=== PATIENT | male | born 1995 | race Caucasian/White ===

== ENCOUNTER 2017-06-20 18:25 | Emergency (ER) | payer MEDICARE, MEDICAID ==
[~2017-06-20] VITALS: Ht 5703.2 cm; Wt 84.0 kg
[~2017-06-20 18:25] MED LIST: PALI234D IM
[2017-06-20 19:09] VITALS: BP 143/96
[2017-06-20] MEDS ORDERED: TRAZ-143 PO (20:08)
[2017-06-20] MEDS ORDERED: ZIPR40CA2 PO (20:08)
[2017-06-20] MEDS ORDERED: BUSP5TAB3 PO (20:08)
[2017-06-20] MEDS ORDERED: traZODone 50mg tablet PO STA (20:11)
[2017-06-20] MEDS ORDERED: busPIRone 5mg tablet PO STA (20:11)
[2017-06-20] MEDS ORDERED: ziprasidone 20mg capsule PO STA (20:11)
== END 2017-06-20 20:37 | disposition home or self-care (01) ==
LOC: ER 18:26
DX: F20.9 Schizophrenia, unspecified (principal); F31.9 Bipolar disorder, unspecified; F41.9 Anxiety disorder, unspecified; F12.10 Cannabis abuse, uncomplicated; F15.10 Other stimulant abuse, uncomplicated; F14.10 Cocaine abuse, uncomplicated; Z88.0 Allergy status to penicillin
CPT/HCPCS: 99284

== ENCOUNTER 2017-06-28 04:17 | Emergency (ER) | payer MEDICARE, MEDICAID ==
[~2017-06-28] VITALS: Ht 172.7 cm; Wt 84.0 kg
[~2017-06-28 04:17] MED LIST changes: +BUSP5TAB3 PO; -PALI234D IM; +TRAZ-143 PO; +ZIPR40CA2 PO
[2017-06-28 04:59] VITALS: BP 118/64
== END 2017-06-28 05:02 | disposition home or self-care (01) ==
LOC: ER 04:18
DX: F20.9 Schizophrenia, unspecified (principal); F41.9 Anxiety disorder, unspecified; Z88.8 Allergy status to other drugs, medicaments and biological substances
CPT/HCPCS: 99284

== ENCOUNTER 2017-06-30 10:05 | Emergency (ER) | payer MEDICARE, MEDICAID ==
[~2017-06-30] VITALS: Ht 185550.7 cm; Wt 83.1 kg
[2017-06-30 10:51] LABS: BASOPHILS % (AUTO) 0 % (0-1); EOSINOPHILS # (AUTO) 0.1 X10'3 (0-0.9); EOSINOPHILS % (AUTO) 0.9 % (0-6); HEMATOCRIT 49.4 % (42.0-52.0); HEMOGLOBIN 16.5 g/dl (14.0-17.9); LYMPHOCYTES # (AUTO) 1.5 X10'3 (1.1-4.8); LYMPHOCYTES % (AUTO) 15.9 % (21-51); MEAN CORPUSCULAR HGB CONC 33.3 % (33.0-36.5); MEAN CORPUSCULAR VOLUME 92.9 FL (78-98); MEAN PLATELET VOLUME 7.3 FL (7.4-10.4); MONOCYTES # (AUTO) 0.3 X10'3 (0-0.9); NEUTROPHILS # (AUTO) 7.6 X10'3 (1.8-7.7); NEUTROPHILS % (AUTO) 80.2 % (42-75); PLATELET COUNT 334 X10'3 (140-440); RED BLOOD COUNT 5.32 X10'6 (4.70-6.10); RED CELL DISTRIBUTION WIDTH 13.7 % (11.5-14.5); WHITE BLOOD COUNT 9.5 X10'3 (4.5-11.0)
[2017-06-30 11:08] LABS: ALANINE AMINOTRANSFERASE 28 U/L (12-78); ALBUMIN 4.2 G/DL (3.4-5.0); ALBUMIN/GLOBULIN RATIO 1.3 (1.1-1.5); ALKALINE PHOSPHATASE 64 IU/L (46-116); ANION GAP 9 (8-16); ASPARTATE AMINO TRANSFERASE 16 U/L (10-37); BILIRUBIN,TOTAL 0.6 MG/DL (0.1-1.0); BLOOD UREA NITROGEN 8 MG/DL (7-18); CALCIUM 9.3 MG/DL (8.5-10.1); CHLORIDE 106 MMOL/L (99-107); ETHANOL < 0.010 GM/DL (0.0-0.010); GLUCOSE 99 MG/DL (70-104); POTASSIUM 3.8 MMOL/L (3.5-5.1); SODIUM 142 MMOL/L (135-145); TOTAL CARBON DIOXIDE 27.2 MMOL/L (24-32); TOTAL PROTEIN 7.4 G/DL (6.4-8.2); eGFR > 90 ML/MIN
[2017-06-30 11:09] LABS: URINE AMPHETAMINE SCREEN NEGATIVE (Neg); URINE BARBITUATE SCREEN NEGATIVE (Neg); URINE BENZODIAZEPINES SCREEN NEGATIVE (Neg); URINE CANNABINOID SCREEN NEGATIVE (Neg); URINE COCAINE SCREEN NEGATIVE (Neg); URINE METHADONE SCREEN NEGATIVE (Neg); URINE OPIATE SCREEN NEGATIVE (Neg); URINE PHENCYCLIDINE SCREEN NEGATIVE (Neg)
[2017-06-30] MEDS ORDERED: TEMA15CA5 PO (18:21)
[2017-06-30] MEDS ORDERED: ACET-890 PO (18:21)
[2017-06-30] MEDS ORDERED: OLAN5TAB3 PO (18:21)
[2017-06-30] MEDS ORDERED: OLANZapine 2.5MG tablet PO PRN (19:50)
[2017-06-30] MEDS: hydrOXYzine 25 MG tablet PO PRN (20:16)
[2017-06-30] MEDS: OLANZapine 2.5MG tablet PO SCH ×2 (20:16→21:00)
[2017-07-01] MEDS: hydrOXYzine 25 MG tablet PO PRN (20:12)
[2017-07-01] MEDS: OLANZapine 2.5MG tablet PO SCH (20:13)
[2017-07-02 16:13] VITALS: BP 117/55
== END 2017-07-02 16:43 ==
LOC: ER 10:05
DX: R45.851 Suicidal ideations (principal); F20.9 Schizophrenia, unspecified; J44.9 Chronic obstructive pulmonary disease, unspecified; F12.10 Cannabis abuse, uncomplicated; F15.90 Other stimulant use, unspecified, uncomplicated; Z88.8 Allergy status to other drugs, medicaments and biological substances; Z56.0 Unemployment, unspecified; Z59.0 Homelessness
CPT/HCPCS: 36415; 80053; 80305; 80320; 85025; 99285; Q0177

== ENCOUNTER 2017-07-25 06:54 | Emergency (ER) | payer MEDICARE, MEDICAID ==
[~2017-07-25] VITALS: Ht 170.2 cm; Wt 90.9 kg
[~2017-07-25 06:54] MED LIST changes: +ACET-890 PO; -BUSP5TAB3 PO; +OLAN5TAB3 PO; +TEMA15CA5 PO; -TRAZ-143 PO; -ZIPR40CA2 PO
[2017-07-25 06:58] VITALS: BP 217/156
[2017-07-25 08:07] LABS: BASOPHILS % (AUTO) 0.1 % (0-1); EOSINOPHILS # (AUTO) 0.1 X10'3 (0-0.9); EOSINOPHILS % (AUTO) 0.6 % (0-6); HEMATOCRIT 45.4 % (42.0-52.0); HEMOGLOBIN 15.9 g/dl (14.0-17.9); LYMPHOCYTES # (AUTO) 1.2 X10'3 (1.1-4.8); LYMPHOCYTES % (AUTO) 10.8 % (21-51); MEAN CORPUSCULAR HEMOGLOBIN 31.7 PG (27.0-31.0); MEAN CORPUSCULAR VOLUME 90.7 FL (78-98); MEAN PLATELET VOLUME 7.3 FL (7.4-10.4); MONOCYTES # (AUTO) 0.3 X10'3 (0-0.9); MONOCYTES % (AUTO) 2.7 % (2-12); NEUTROPHILS # (AUTO) 9.2 X10'3 (1.8-7.7); NEUTROPHILS % (AUTO) 85.8 % (42-75); PLATELET COUNT 275 X10'3 (140-440); RED BLOOD COUNT 5.01 X10'6 (4.70-6.10); RED CELL DISTRIBUTION WIDTH 13.6 % (11.5-14.5); WHITE BLOOD COUNT 10.8 X10'3 (4.5-11.0)
[2017-07-25 08:23] LABS: ALANINE AMINOTRANSFERASE 17 U/L (12-78); ALBUMIN 4.1 G/DL (3.4-5.0); ALBUMIN/GLOBULIN RATIO 1.2 (1.1-1.5); ALKALINE PHOSPHATASE 54 IU/L (46-116); ANION GAP 15 (8-16); ASPARTATE AMINO TRANSFERASE 15 U/L (10-37); BILIRUBIN,TOTAL 0.2 MG/DL (0.1-1.0); BLOOD UREA NITROGEN 10 MG/DL (7-18); BUN/CREATININE RATIO 12.5 (5.4-32.0); CALCIUM 9.3 MG/DL (8.5-10.1); CHLORIDE 104 MMOL/L (99-107); GLUCOSE 97 MG/DL (70-104); POTASSIUM 3.6 MMOL/L (3.5-5.1); SODIUM 144 MMOL/L (135-145); TOTAL CARBON DIOXIDE 24.6 MMOL/L (24-32); TOTAL PROTEIN 7.5 G/DL (6.4-8.2); eGFR > 90 ML/MIN
== END 2017-07-25 08:35 | disposition left against medical advice (07) ==
LOC: ER 06:54
DX: F41.0 Panic disorder [episodic paroxysmal anxiety] (principal); F20.9 Schizophrenia, unspecified; J44.9 Chronic obstructive pulmonary disease, unspecified; F12.90 Cannabis use, unspecified, uncomplicated; F15.90 Other stimulant use, unspecified, uncomplicated; F14.10 Cocaine abuse, uncomplicated; Z59.0 Homelessness; Z56.0 Unemployment, unspecified; Z88.8 Allergy status to other drugs, medicaments and biological substances; Z79.899 Other long term (current) drug therapy
CPT/HCPCS: 36415; 80053; 80320; 85025; 99284

== ENCOUNTER 2018-09-27 13:30 | Emergency (ER) | payer MEDICAID, MEDICARE ==
[~2018-09-27] VITALS: Ht 175.3 cm; Wt 90.9 kg
[2018-09-27 13:37] VITALS: BP 152/91
[2018-09-27] MEDS ORDERED: methylPREDNISolone sod succ 125mg/2ml vial IM ONE (14:10)
[2018-09-27] MEDS ORDERED: METH4TAB3 PO (14:27)
== END 2018-09-27 14:49 | disposition home or self-care (01) ==
LOC: ER 13:31
DX: L23.7 Allergic contact dermatitis due to plants, except food (principal); F12.90 Cannabis use, unspecified, uncomplicated; F15.90 Other stimulant use, unspecified, uncomplicated; F14.90 Cocaine use, unspecified, uncomplicated; Z88.8 Allergy status to other drugs, medicaments and biological substances; Z79.899 Other long term (current) drug therapy; Z59.0 Homelessness; Z56.0 Unemployment, unspecified
CPT/HCPCS: 96372; 99283; J2930

== ENCOUNTER 2018-10-10 11:51 | Emergency (ER) | payer MEDICARE ==
[~2018-10-10] VITALS: Ht 172.7 cm; Wt 92.0 kg
[~2018-10-10 11:51] MED LIST changes: +METH4TAB3 PO
[2018-10-10] MEDS ORDERED: HYDR-3686 PO (12:46)
[2018-10-10 12:56] VITALS: BP 142/75
== END 2018-10-10 12:59 | disposition home or self-care (01) ==
LOC: ER 11:52
DX: G47.00 Insomnia, unspecified (principal); F12.90 Cannabis use, unspecified, uncomplicated; F15.90 Other stimulant use, unspecified, uncomplicated; F14.90 Cocaine use, unspecified, uncomplicated; Z90.49 Acquired absence of other specified parts of digestive tract; Z56.0 Unemployment, unspecified; Z59.0 Homelessness; Z88.8 Allergy status to other drugs, medicaments and biological substances; Z79.899 Other long term (current) drug therapy
CPT/HCPCS: 99283

== ENCOUNTER 2018-10-24 11:53 | Emergency (ER) | payer MEDICARE ==
[~2018-10-24] VITALS: Ht 172.7 cm; Wt 90.9 kg
[2018-10-24] MEDS ORDERED: ziprasidone 20mg capsule PO ONE (12:15)
[2018-10-24] MEDS: hydrOXYzine 25 MG tablet PO ONE ×2 (12:15→13:05)
[2018-10-24] MEDS: ziprasidone 20mg capsule PO ONE ×2 (12:20→13:05)
[2018-10-24 12:30] LABS: CLARITY,URINE CLEAR (Clear); COLOR,URINE YELLOW (Yellow); GLUCOSE, URINE NEGATIVE (Neg); KETONES,URINE NEGATIVE (Neg); LEUKOCYTE ESTERASE ,URINE NEGATIVE (Neg); NITRITES, URINE NEGATIVE (Neg); OCCULT BLOOD,URINE NEGATIVE (Neg); PROTEIN,URINE NEGATIVE (Neg); UA COLLECTION TYPE CLN CATCH MIDSTREAM; UROBILINOGEN,URINE 0.2 E.U/dL (0.2-1.0)
[2018-10-24 12:39] LABS: URINE AMPHETAMINE SCREEN NEGATIVE (Neg); URINE BARBITUATE SCREEN NEGATIVE (Neg); URINE BENZODIAZEPINES SCREEN NEGATIVE (Neg); URINE CANNABINOID SCREEN NEGATIVE (Neg); URINE COCAINE SCREEN NEGATIVE (Neg); URINE METHADONE SCREEN NEGATIVE (Neg); URINE OPIATE SCREEN NEGATIVE (Neg); URINE PHENCYCLIDINE SCREEN NEGATIVE (Neg)
--- NOTE | 2018-10-24 14:15 | NUR ---
pt is resting on his left side, no s/s of agitation observed, equal, regular breathing, lab is attempting blood draw
--- NOTE | 2018-10-24 14:17 | NUR ---
pt refused blood draw
--- NOTE | 2018-10-24 15:30 | NUR ---
Patient awake alert and states he is having difficulty falling asleep and states he hasn't slept in 3 days. States the voices in his head are racing. Patient feels depressed and suicidal. RN had offered patient Geodon and Atarax but patient refused. RN again offered patient meds when he was anxious and patient refused. Patient states he has not had medication x 3 months since he was discharged from [facility]. Continue to monitor.
[2018-10-24 16:01] LABS: BASOPHILS % (AUTO) 0.5 % (0-1); EOSINOPHILS % (AUTO) 0 % (0-6); HEMATOCRIT 49.2 % (42.0-52.0); HEMOGLOBIN 16.6 g/dl (14.0-17.9); LYMPHOCYTES # (AUTO) 1.1 X10'3 (1.1-4.8); LYMPHOCYTES % (AUTO) 12.7 % (21-51); MEAN CORPUSCULAR HEMOGLOBIN 31.5 PG (27.0-31.0); MEAN CORPUSCULAR HGB CONC 33.7 g/dL (33.0-36.5); MEAN CORPUSCULAR VOLUME 93.6 FL (78-98); MEAN PLATELET VOLUME 7.3 FL (7.4-10.4); MONOCYTES # (AUTO) 0.7 X10'3 (0-0.9); MONOCYTES % (AUTO) 8.2 % (2-12); NEUTROPHILS # (AUTO) 6.9 X10'3 (1.8-7.7); NEUTROPHILS % (AUTO) 78.6 % (42-75); PLATELET COUNT 270 X10'3 (140-440); RED BLOOD COUNT 5.25 X10'6 (4.70-6.10); RED CELL DISTRIBUTION WIDTH 14.2 % (11.5-14.5); WHITE BLOOD COUNT 8.8 X10'3 (4.5-11.0)
[2018-10-24 16:19] LABS: ALANINE AMINOTRANSFERASE 26 U/L (12-78); ALBUMIN 3.7 G/DL (3.4-5.0); ALBUMIN/GLOBULIN RATIO 1.1 (1.1-1.5); ALKALINE PHOSPHATASE 77 IU/L (46-116); ANION GAP 11 (8-16); BILIRUBIN,TOTAL 0.4 MG/DL (0.1-1.0); BLOOD UREA NITROGEN 10 MG/DL (7-18); BUN/CREATININE RATIO 10.6 (5.4-32.0); CHLORIDE 101 MMOL/L (99-107); CREATININE 0.94 MG/DL (0.60-1.10); GLUCOSE 98 MG/DL (70-104); SODIUM 137 MMOL/L (135-145); TOTAL CARBON DIOXIDE 25.5 MMOL/L (24-32); TOTAL PROTEIN 7.1 G/DL (6.4-8.2); eGFR > 90 ML/MIN
[2018-10-24 16:25] LABS: ASPARTATE AMINO TRANSFERASE 24 U/L (10-37)
[2018-10-24 16:31] LABS: ACETAMINOPHEN < 2.0 UG/ML (10-30); ETHANOL < 0.010 GM/DL (0.0-0.010)
--- NOTE | 2018-10-24 17:20 | NUR ---
Patient reclining with his eyes closed. No distress observed. Continue to monitor.
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
--- NOTE | 2018-10-24 20:41 | NUR ---
The patient is resting quietly on his bed
--- NOTE | 2018-10-24 21:15 | NUR ---
Casper GRACE is here to see the patient.
[2018-10-24] MEDS ORDERED: quetiapine 100mg tablet PO SCH (21:50)
--- NOTE | 2018-10-24 23:11 | NUR ---
The patient appears to be asleep at this time.
--- NOTE | 2018-10-25 01:08 | NUR ---
The patient appears to be asleep
--- NOTE | 2018-10-25 02:55 | NUR ---
The patient appears to be asleep
--- NOTE | 2018-10-25 04:47 | NUR ---
The patient appears to be sleeping
[2018-10-25 05:56] VITALS: BP 121/67
[2018-10-25] MEDS ORDERED: QUEtiapine 25mg tablet PO SCH (08:00)
== END 2018-10-25 09:15 ==
LOC: ER 11:54
DX: R45.851 Suicidal ideations (principal); J44.9 Chronic obstructive pulmonary disease, unspecified; F17.200 Nicotine dependence, unspecified, uncomplicated; Z59.0 Homelessness; Z88.8 Allergy status to other drugs, medicaments and biological substances; Z79.899 Other long term (current) drug therapy; Z56.0 Unemployment, unspecified
CPT/HCPCS: 36415; 80053; 80305; 80320; 80329; 81003; 84443; 85025; 99285; Q0177; 99283

== ENCOUNTER 2018-10-29 17:10 | Emergency (ER) | payer MEDICARE ==
[~2018-10-29] VITALS: Ht 172.7 cm; Wt 90.9 kg
[~2018-10-29 17:10] MED LIST changes: -ACET-890 PO; -METH4TAB3 PO; -TEMA15CA5 PO
[2018-10-29] MEDS ORDERED: folic acid 1mg/0.2ml inj IV ONE (17:25)
[2018-10-29] MEDS ORDERED: ondansetron/PF 4mg/2ml inj IV ONE (17:25)
[2018-10-29] MEDS ORDERED: thiamine 100mg/ml 2ml inj. IV ONE (17:25)
[2018-10-29] MEDS ORDERED: normal saline 1000ML IV soln IV ONE (17:25)
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
[2018-10-29 18:09] LABS: BASOPHILS # (AUTO) 0.1 X10'3 (0-0.2); BASOPHILS % (AUTO) 0.7 % (0-1); EOSINOPHILS % (AUTO) 0.6 % (0-6); HEMATOCRIT 48.6 % (42.0-52.0); HEMOGLOBIN 16.9 g/dl (14.0-17.9); LYMPHOCYTES # (AUTO) 2.7 X10'3 (1.1-4.8); LYMPHOCYTES % (AUTO) 36.8 % (21-51); MEAN CORPUSCULAR HEMOGLOBIN 32.6 PG (27.0-31.0); MEAN CORPUSCULAR HGB CONC 34.7 g/dL (33.0-36.5); MEAN CORPUSCULAR VOLUME 94.2 FL (78-98); MEAN PLATELET VOLUME 6.9 FL (7.4-10.4); MONOCYTES # (AUTO) 0.7 X10'3 (0-0.9); MONOCYTES % (AUTO) 9.1 % (2-12); NEUTROPHILS # (AUTO) 3.8 X10'3 (1.8-7.7); NEUTROPHILS % (AUTO) 52.8 % (42-75); PLATELET COUNT 228 X10'3 (140-440); RED BLOOD COUNT 5.16 X10'6 (4.70-6.10); WHITE BLOOD COUNT 7.2 X10'3 (4.5-11.0)
[2018-10-29 18:22] LABS: ALANINE AMINOTRANSFERASE 41 U/L (12-78); ALBUMIN 3.3 G/DL (3.4-5.0); ALBUMIN/GLOBULIN RATIO 1.1 (1.1-1.5); ALKALINE PHOSPHATASE 64 IU/L (46-116); ANION GAP 8 (8-16); ASPARTATE AMINO TRANSFERASE 23 U/L (10-37); BILIRUBIN,TOTAL 0.1 MG/DL (0.1-1.0); BLOOD UREA NITROGEN 8 MG/DL (7-18); BUN/CREATININE RATIO 10.5 (5.4-32.0); CHLORIDE 109 MMOL/L (99-107); CREATININE 0.76 MG/DL (0.60-1.10); GLUCOSE 97 MG/DL (70-104); POTASSIUM 3.8 MMOL/L (3.5-5.1); SODIUM 144 MMOL/L (135-145); TOTAL CARBON DIOXIDE 27.1 MMOL/L (24-32); TOTAL PROTEIN 6.4 G/DL (6.4-8.2); eGFR > 90 ML/MIN
[2018-10-29 18:35] VITALS: BP 81/53
== END 2018-10-29 18:40 ==
LOC: ER 17:11
DX: F10.129 Alcohol abuse with intoxication, unspecified (principal); Z90.49 Acquired absence of other specified parts of digestive tract; Z56.0 Unemployment, unspecified; Z59.0 Homelessness; Z88.8 Allergy status to other drugs, medicaments and biological substances; Z79.899 Other long term (current) drug therapy; Y90.0 Blood alcohol level of less than 20 mg/100 ml
CPT/HCPCS: 36415; 80053; 80320; 85025; 96374; 96375; 99283; J2405; J3411; J3490; J7030

== ENCOUNTER 2019-01-04 16:30 | Emergency (ER) | payer MEDICARE ==
--- NOTE | 2019-01-04 16:33 | NUR ---
PT BROUGHT INTO TRIAGE ASKED WHAT HE IS BEING SEEN FOR AND HE STANDS UP OPENS THE DOOR AND STATES "I GOT TO GO ACTUALY" ASKED WHAT HE WANTED TO BE SEEN FOR AND HE STATES "I JUST WANTED A PHYSICAL" AND WALKED OUT OF TRIAGE AND OUT OF THE ER LOBBY. ELIZA JONAS NOTIFIED
== END 2019-01-04 16:43 | disposition left against medical advice (07) ==
LOC: ER 16:30
DX: R69 Illness, unspecified (principal); Z53.21 Procedure and treatment not carried out due to patient leaving prior to being seen by health care provider

== ENCOUNTER 2019-08-02 01:57 | Emergency (ER) | payer MEDICARE, OTHER ==
[~2019-08-02] VITALS: Ht 172.7 cm; Wt 76.0 kg
[2019-08-02 02:01] VITALS: BP 148/88
[2019-08-02 02:32] LABS: URINE AMPHETAMINE SCREEN NEGATIVE (Neg); URINE BARBITUATE SCREEN NEGATIVE (Neg); URINE BENZODIAZEPINES SCREEN NEGATIVE (Neg); URINE CANNABINOID SCREEN NEGATIVE (Neg); URINE COCAINE SCREEN NEGATIVE (Neg); URINE METHADONE SCREEN NEGATIVE (Neg); URINE OPIATE SCREEN NEGATIVE (Neg); URINE PHENCYCLIDINE SCREEN NEGATIVE (Neg)
== END 2019-08-02 02:51 ==
LOC: ER 01:58
DX: S09.90XA Unspecified injury of head, initial encounter (principal); R94.31 Abnormal electrocardiogram [ECG] [EKG]; F41.9 Anxiety disorder, unspecified; F31.9 Bipolar disorder, unspecified; Z56.0 Unemployment, unspecified; Z90.49 Acquired absence of other specified parts of digestive tract; Z88.8 Allergy status to other drugs, medicaments and biological substances; X58.XXXA Exposure to other specified factors, initial encounter; Y93.89 Activity, other specified; Y92.89 Other specified places as the place of occurrence of the external cause; Y99.9 Unspecified external cause status
CPT/HCPCS: 80305; 93005; 99284

== ENCOUNTER 2020-12-28 14:36 | Inpatient (IN) | payer MEDICAID, OTHER ==
[~2020-12-28] VITALS: Ht 175.3 cm; Wt 90.1 kg
[2020-12-28] MEDS ORDERED: mag hydrox/Alum hydrox/simeth 30ml oral suspension PO PRN (15:35)
[2020-12-28] MEDS ORDERED: acetaminophen 325mg tablet PO PRN ×2 (15:35)
[2020-12-28] MEDS ORDERED: loperamide 2mg capsule PO PRN (15:35)
[2020-12-28] MEDS ORDERED: magnesium hydroxide 30ml (MOM) UD suspension PO PRN (15:35)
[2020-12-28 15:52] VITALS: BP 148/92
--- NOTE | 2020-12-28 18:01 | NUR ---
Nursing Admission Note Pt admitted to [facility] at 1500. Pt was released from [facility] to attend his conservatorship hearing. Decision was made to LPS conserve him and he was then brought to [facility]. Pt was showered and skin check completed along with MRSA swab. Pt overall cooperative, but also restless and wanted to sleep. Pt belongings inventoried and pt oriented to unit. Pt tolerated a moderate level of questions before falling asleep. Pt appears to have been taking Clozaril, Haldol and Depakote in [facility]. Pt tolerated assessments well and reports being very hungry. Pt appears anxious and guarded yet cooperative.
[2020-12-28] MEDS ORDERED: CLOZ100T23 PO ×2 (18:11→19:24)
[2020-12-28] MEDS ORDERED: DIVA-76 PO ×2 (18:11→19:24)
[2020-12-28] MEDS ORDERED: HALO10TA13 PO ×2 (18:13→19:24)
[2020-12-28 19:16] VITALS: BP 127/78
[2020-12-28] MEDS: divalproex sodium 500mg tablet.DR PO SCH (20:53)
[2020-12-28] MEDS: haloperidol 5mg tablet PO SCH (20:53)
[2020-12-28 20:55] LABS: BASOPHILS % (AUTO) 0.7 % (0-1); EOSINOPHILS # (AUTO) 0.4 X10'3 (0-0.9); EOSINOPHILS % (AUTO) 8.4 % (0-6); HEMATOCRIT 41.2 % (42.0-52.0); LYMPHOCYTES # (AUTO) 1.7 X10'3 (1.1-4.8); LYMPHOCYTES % (AUTO) 32.3 % (21-51); MEAN CORPUSCULAR HEMOGLOBIN 31.6 PG (27.0-31.0); MEAN CORPUSCULAR HGB CONC 33.9 g/dL (33.0-36.5); MEAN CORPUSCULAR VOLUME 93.1 FL (78-98); MEAN PLATELET VOLUME 8.3 FL (7.4-10.4); MONOCYTES # (AUTO) 0.7 X10'3 (0-0.9); NEUTROPHILS # (AUTO) 2.4 X10'3 (1.8-7.7); NEUTROPHILS % (AUTO) 45.6 % (42-75); PLATELET COUNT 189 X10'3 (140-440); RED BLOOD COUNT 4.43 X10'6 (4.70-6.10); RED CELL DISTRIBUTION WIDTH 12.6 % (11.5-14.5); WHITE BLOOD COUNT 5.3 X10'3 (4.5-11.0)
[2020-12-28] MEDS: clozapine 100mg tablet PO SCH (21:00)
--- NOTE | 2020-12-29 01:49 | NUR ---
Nursing Progress Note: Legal hold:LPS Client on involuntary status for GD Report received from [place] RN with use of SBAR Why are they here:Pt admitted to [facility] at 1500. Pt was released from [facility] to attend his conservatorship hearing. Decision was made to LPS conserve him and he was then brought to [facility]. Pt was showered and skin check completed along with MRSA swab. Pt overall cooperative, but also restless and wanted to sleep. Pt belongings inventoried and pt oriented to unit. Pt tolerated a moderate level of questions before falling asleep. Pt appears to have been taking Clozaril, Haldol and Depakote in senior care. Pt tolerated assessments well and reports being very hungry. Pt appears anxious and guarded yet cooperative. Assessment What has happened this shift: Pt was in bed at change of shift sleeping. He declined to get up for snacks. At meds patient woke up for meds. Gave minimal response to questions and seemed bothered and attempted to go back to sleep. Asked patient about snacks and he sat up and reports feeling "very hungry, Can I get something to eat?" Pt was given snacks and went back to sleep. S/I, H/I: denies A/VH: denies Sleep: see sleep hours ADL's: independent Group attendance: no evening groups Were meds taken: yes Any med S/E: none Mental Status Exam Appearance: adequately groomed and dressed wearing green scrubs. Eye contact: fair Behavior: isolates to room, sleeping Speech: wnl Mood: maría elena pt sleeping most of shift Affect: guarded Thought process: maría elena pt sleeping Thought Content: wants food Cognition:maría elena pt not interested in answering questions right now Insight: fair Judgment: poor Interventions PRN's used: none Therapeutic interventions: 1:1 assessment, therapeutic communication, encouraged pt to express his thoughts and feelings, active listening, medication administration/education/monitoring, behavior monitoring and intervention as needed; limit setting, distraction, redirection Q 15 minute safety checks. Restraints/seclusion/emergency medication: N/A Justification of Continued Inpatient Treatment: The patient is in need of crisis interruption and medication management and monitoring in a safe and therapeutic environment until stable. Pt was living at [facility] which he refuses to return to. Pt is LPS conserved.
[2020-12-29 07:20] LABS: HEMOGLOBIN A1C 5.1 % (4.5-6.2)
[2020-12-29 07:25] LABS: CHOL/HDL RATIO 2.5 (0.00-4.99); CHOLESTEROL 141 MG/DL (0-200); HDL CHOLESTEROL 57 MG/DL (35-60); LDL CHOLESTEROL 68 MG/DL (50-100); TRIGLYCERIDES 43 MG/DL (20-135)
[2020-12-29] MEDS: haloperidol 5mg tablet PO SCH ×2 (07:40→20:16)
[2020-12-29] MEDS: divalproex sodium 500mg tablet.DR PO SCH ×2 (07:40→20:16)
[2020-12-29 07:59] VITALS: BP 132/83
--- NOTE | 2020-12-29 17:14 | NUR ---
Nursing Progress Note: Legal hold: LPS Client on involuntary status for GD Report received from nurse with use of SBAR: EMILIANO Monets Why are they here: Pt was released from [facility] to attend his conservatorship hearing. Decision was made to LPS conserve him and he was then brought to [facility]. Pt was showered and skin check completed along with MRSA swab. Pt overall cooperative, but also restless and wanted to sleep. Pt belongings inventoried and pt oriented to unit. Pt tolerated a moderate level of questions before falling asleep. Pt appears to have been taking Clozaril, Haldol and Depakote in [facility]. Pt tolerated assessments well and reports being very hungry. Pt appears anxious and guarded yet cooperative. Assessment What has happened this shift: Received pt. sleeping in bed at the beginning of the shift, he awoke and requested to take a shower. Pt. was able to complete this task independently with only set-up needed from staff. Pt. attended breakfast in the Group Room, and afterwards retreated back to bed where he continued to nap intermittently throughout the day. 1:1 completed at bedside, pt. presents as cooperative, fatigue, guarded, and withdrawn. He responds to direct questions only with mostly yes/no answers, and a blunted response. Pt. denies any S/I, H/I, A/V/LEMUS, and no delusional statements made. When questioned by this tag writer why he is here, pt. stated bluntly, "I'm trying to prevent conservatorship." Pt. isolated in his room throughout the day, coming out to attend meals. It was noted by this tag writer that pt. did not receive his scheduled dose of Clozaril last night. This was endorsed to SANJAY Mckinley who advised Clozaril to begin tonight. Will endorse to Noc shift. S/I, H/I: Denies A/VH: Denies, does not appear internally preoccupied Sleep: Sleep hours are 9, and pt. naps intermittently throughout the day ADL's: Independent Group attendance: No Were meds taken: Yes Any med S/E: None Mental Status Exam Appearance: Neat and appropriately dressed Eye contact: Fair Behavior: Cooperative, fatigue, guarded, and withdrawn Speech: Minimal, responds to direct questions only with mostly yes/no answers Mood: Guarded Affect: Constricted Thought process: Poverty of thought Thought Content: Preoccupied with desire to prevent conservatorship Cognition: A&O X3 (no to why here) Insight: Poor Judgment: Poor Interventions PRN's used: None Therapeutic interventions: Introduced self and established rapport, maintained a safe and supportive environment, ensured contract for safety, provided clear and simple instructions, and maintained Q 15min safety checks. Restraints/seclusion/emergency medication: N/A Justification of Continued Inpatient Treatment: Pt. requires a safe and supportive environment, medication adjustments, and interruption of current crisis.
[2020-12-29 19:52] VITALS: BP 112/60
[2020-12-29] MEDS: clozapine 100mg tablet PO SCH (20:17)
--- NOTE | 2020-12-30 03:08 | NUR ---
Nursing Progress Note: Legal hold: LPS Client on involuntary status for GD Report received from nurse with use of SBAR: Jyoti RN Why are they here: Pt was released from [facility] to attend his conservatorship hearing. Decision was made to LPS conserve him and he was then brought to [facility]. Pt was showered and skin check completed along with MRSA swab. Pt overall cooperative, but also restless and wanted to sleep. Pt belongings inventoried and pt oriented to unit. Pt tolerated a moderate level of questions before falling asleep. Pt appears to have been taking Clozaril, Haldol and Depakote in [facility]. Pt tolerated assessments well and reports being very hungry. Pt appears anxious and guarded yet cooperative. Assessment What has happened this shift: Pt isolated to his room all evening, refusing to engage with this rn or talk about anything. Pt denies all mh symptoms and does not appear to be responding to IS. All hs meds were taken without issue. S/I, H/I: Denies A/VH: Denies, does not appear internally preoccupied Sleep: see sleep assessment ADL's: Independent Group attendance: No Were meds taken: Yes Any med S/E: None Mental Status Exam Appearance: lying in bed under covers Eye contact: Fair Behavior: Cooperative, fatigue, guarded, and withdrawn Speech: Minimal, responds to direct questions only with mostly yes/no answers Mood: Guarded Affect: Constricted Thought process: Poverty of thought Thought Content: Preoccupied with desire to prevent conservatorship Cognition: A&O X3 (no to why here) Insight: Poor Judgment: Poor Interventions PRN's used: None Therapeutic interventions: Introduced self and established rapport, maintained a safe and supportive environment, ensured contract for safety, provided clear and simple instructions, and maintained Q 15min safety checks. Restraints/seclusion/emergency medication: N/A Justification of Continued Inpatient Treatment: Pt. requires a safe and supportive environment, medication adjustments, and interruption of current crisis.
[2020-12-30 08:00] VITALS: BP 113/62
[2020-12-30] MEDS: haloperidol 5mg tablet PO SCH ×2 (08:52→20:23)
[2020-12-30] MEDS: divalproex sodium 500mg tablet.DR PO SCH ×2 (08:52→20:23)
[2020-12-30] MEDS: LORazepam 1 MG tablet PO PRN (16:02)
--- NOTE | 2020-12-30 17:53 | NUR ---
Nursing Progress Note: Arnold Schroeder Legal hold: LPS Client on involuntary status for GD Report received from EMILIANO Steele with use of SBAR Why are they here: Pt was released from [facility] to attend his conservatorship hearing. Decision was made to LPS conserve him and he was then brought to [facility]. Pt was showered and skin check completed along with MRSA swab. Pt overall cooperative, but also restless and wanted to sleep. Pt belongings inventoried and pt oriented to unit. Pt tolerated a moderate level of questions before falling asleep. Pt appears to have been taking Clozaril, Haldol and Dep[facility]ote [facility]. Pt tolerated assessments well and reports being very hungry. Pt appears anxious and guarded yet cooperative. Assessment What has happened this shift: Pt observed sleeping in bed upon shift change. Pt encouraged to get up for breakfast and join his peers in the community room. Patient appears guarded and withdrawn on this shift. Patient has a linear thought process but does not engage in conversation unless prompted. Pt is constricted and blunt during conversation. Pt is compliant with his medications. Patient endorsed to this customs entry writer that he feels better with the medication he is taking and will probably keep taking it when he leaves. This customs entry writer prompted pt on activities that he likes to engage in i.e., reading, playing cards, coloring, and patient stated he has no interest in anything after being incarcerated for the last three years. Pt plans to live with his uncle when he leaves here and does not want to be conserved. PRN Ativan given per pt request for feelings of anxiety with effectiveness. Patient spent most of the day self-isolating in his room between meals despite attempts to have him participate in group. S/I, H/I: Denies A/VH: Denies Sleep: Pt slept 10.15 hours last night per NOC shift, pt slept on and off throughout the day on this shift. ADL's: Independent Group attendance: No Were meds taken: Yes Any med S/E: None Mental Status Exam Appearance: Appropriately dressed, clean, casually groomed Eye contact: Fair Behavior: Closed-off, avoidant, guarded, and withdrawn Speech: Clear but minimal, does not engage in conversation unless prompted Mood: Guarded Affect: Blunt, Constricted Thought process: Linear Thought Content: Wants to leave and move in with his uncle. Does not want to be conserved. Cognition: A&O x4 Insight: Poor Judgment: Poor Interventions PRN's used: PRN Ativan Therapeutic interventions: Ensured contract for safety, 1:1 assessment, therapeutic communication with active listening, maintained a safe and supportive environment, medication administration/education/monitoring, maintained Q 15 minute safety checks, limit setting, distraction, and redirection. Restraints/seclusion/emergency medication: N/A Justification of Continued Inpatient Treatment: Per Dr. Mckinley, pt. requires a safe and supportive environment, medication adjustments, and interruption of current crisis. We will continue to build a rapport and relationship with the patient but at this time he is very uncooperative.
[2020-12-30 19:54] VITALS: BP 100/81
[2020-12-30] MEDS: clozapine 100mg tablet PO SCH (20:23)
--- NOTE | 2020-12-31 02:25 | NUR ---
Nursing Progress Note: Legal hold: LPS Client on involuntary status for GD Report received from EMILIANO Ramos with use of SBAR Why are they here: Pt was released from [facility] to attend his conservatorship hearing. Decision was made to LPS conserve him and he was then brought to [facility]. Pt was showered and skin check completed along with MRSA swab. Pt overall cooperative, but also restless and wanted to sleep. Pt belongings inventoried and pt oriented to unit. Pt tolerated a moderate level of questions before falling asleep. Pt appears to have been taking Clozaril, Haldol and Depakote in residential. Pt tolerated assessments well and reports being very hungry. Pt appears anxious and guarded yet cooperative. Assessment What has happened this shift: Patient observed laying in bed and blankets pulled over his head at the beginning of shift. Pleasant and cooperative with care; compliant with all medication. Denies SI, HI, A/VH; does not appear to be responding to IS and no delusional thought content expressed. Patient remains guarded and provided minimal responses to get back to bed. Patient remained isolated to his room this shift; observed sleeping and does not appear to be having difficulty. S/I, H/I: Denies A/VH: Denies Sleep: Refer to sleep assessment ADL's: Independent Group attendance: NA Were meds taken: Yes Any med S/E: None observed or reported Mental Status Exam Appearance: Appropriately dressed, wrapped up tightly in his blankets while in bed Eye contact: Avoidant Behavior: Cooperative, avoidant, guarded, and withdrawn Speech: Clear, audible, minimal Mood: Guarded Affect: Blunt, constricted Thought process: Thought blocking Thought Content: Unable to assess Cognition: A&O x4 Insight: Poor Judgment: Poor Interventions PRN's used: None Therapeutic interventions: Ensured contract for safety, 1:1 assessment, therapeutic communication with active listening, maintained a safe and supportive environment, medication administration/education/monitoring, maintained Q 15 minute safety checks, limit setting, distraction, and redirection. Restraints/seclusion/emergency medication: N/A Justification of Continued Inpatient Treatment: Per Dr. Mckinley, pt. requires a safe and supportive environment, medication adjustments, and interruption of current crisis. We will continue to build a rapport and relationship with the patient but at this time he is very uncooperative.
[2020-12-31] MEDS: haloperidol 5mg tablet PO SCH ×2 (07:48→20:26)
[2020-12-31] MEDS: divalproex sodium 500mg tablet.DR PO SCH ×2 (07:48→20:27)
[2020-12-31 08:03] VITALS: BP 116/69
--- NOTE | 2020-12-31 16:29 | NUR ---
Nursing Progress Note: Arnold Schroeder Legal hold: LPS Client on involuntary status for GD Report received from Jocelynn Manriquez RN with use of SBAR Why are they here: Pt was [facility] from [facility] to attend his conservatorship hearing. Decision was made to LPS conserve him and he was then brought to [facility]. Pt was showered and skin check completed along with MRSA swab. Pt overall cooperative, but also restless and wanted to sleep. Pt belongings inventoried and pt oriented to unit. Pt tolerated a moderate level of questions before falling asleep. Pt appears to have been taking Clozaril, Haldol and Depakote in detention. Pt tolerated assessments well and reports being very hungry. Pt appears anxious and guarded yet cooperative. Assessment What has happened this shift: Pt observed sleeping in bed upon shift change. Pt up for meals, but returns to his room immediately when finished. Patient appears guarded and withdrawn on this shift. Patient has a linear thought process but does not engage in conversation unless prompted. Pt is constricted and blunt during conversation. Pt is compliant with his medications. Pt encouraged to be present in the milieu, but patient spent most of the day self-isolating in his room between meals. Pt denies suicidal and homicidal thoughts and denies hallucinations today. S/I, H/I: Denies A/VH: Denies Sleep: pt napped on and off all day ADL's: Independent Group attendance: No Were meds taken: Yes Any med S/E: None Mental Status Exam Appearance: Appropriately dressed, clean, casually groomed Eye contact: Fair Behavior: Closed-off, avoidant, guarded, and withdrawn Speech: Clear but minimal, does not engage in conversation unless prompted Mood: Guarded Affect: Blunt, Constricted Thought process: Linear Thought Content: Wants to leave and move in with his uncle. Does not want to be conserved. Cognition: A&O x4 Insight: Poor Judgment: Poor Interventions PRN's used: Therapeutic interventions: Ensured contract for safety, 1:1 assessment, therapeutic communication with active listening, maintained a safe and supportive environment, medication administration/education/monitoring, maintained Q 15 minute safety checks, limit setting, distraction, and redirection. Restraints/seclusion/emergency medication: N/A Justification of Continued Inpatient Treatment: Per Dr. Mckinley, pt. requires a safe and supportive environment, medication adjustments, and interruption of current crisis. We will continue to build a rapport and relationship with the patient but at this time he is very uncooperative.
[2020-12-31 19:29] VITALS: BP 100/81
[2020-12-31] MEDS: clozapine 25mg tablet PO SCH (20:26)
[2020-12-31] MEDS: clozapine 100mg tablet PO SCH (20:26)
--- NOTE | 2021-01-01 05:02 | NUR ---
Nursing Progress Note: Legal hold: LPS Client on involuntary status for GD Report received from EMILIANO Ramos with use of SBAR Why are they here: [facility] from [facility] to attend his conservatorship hearing. Decision was made to LPS conserve him and he was then brought to [facility]. Pt was showered and skin check completed along with MRSA swab. Pt overall cooperative, but also restless and wanted to sleep. Pt belongings inventoried and pt oriented to unit. Pt tolerated a moderate level of questions before falling asleep. Pt appears to have been taking Clozaril, Haldol and Depakote in [facility]. Pt tolerated assessments well and reports being very hungry. Pt appears anxious and guarded yet cooperative. Assessment What has happened this shift: Patient observed laying in bed at the beginning of shift. Pleasant and cooperative with care; compliant with all medication. Denies SI, HI, A/VH; does not appear to be responding to IS and no delusional thought content expressed. Patient remains guarded and isolated to his room this shift. Patient received new roommate without issues; observed sleeping and does not appear to be having difficulty. S/I, H/I: Denies A/VH: Denies Sleep: Refer to sleep assessment ADL's: Independent Group attendance: NA Were meds taken: Yes Any med S/E: None observed or reported Mental Status Exam Appearance: Appropriately dressed, wrapped up tightly in his blankets while in bed Eye contact: Avoidant Behavior: Cooperative, avoidant, guarded, and withdrawn Speech: Clear, audible, minimal Mood: Guarded Affect: Blunt, constricted Thought process: Thought blocking Thought Content: Unable to assess Cognition: A&O x4 Insight: Poor Judgment: Poor Interventions PRN's used: None Therapeutic interventions: Ensured contract for safety, 1:1 assessment, therapeutic communication with active listening, maintained a safe and supportive environment, medication administration/education/monitoring, maintained Q 15 minute safety checks, limit setting, distraction, and redirection. Restraints/seclusion/emergency medication: N/A Justification of Continued Inpatient Treatment: Per Dr. Mckinley, pt. requires a safe and supportive environment, medication adjustments, and interruption of current crisis. We will continue to build a rapport and relationship with the patient but at this time he is very uncooperative.
[2021-01-01 08:00] VITALS: BP 130/74
[2021-01-01] MEDS: haloperidol 5mg tablet PO SCH ×2 (08:07→21:03)
[2021-01-01] MEDS: divalproex sodium 500mg tablet.DR PO SCH ×2 (08:07→21:04)
--- NOTE | 2021-01-01 17:00 | NUR ---
Nursing Progress Note: Legal hold: LPS Client on involuntary status for GD Report received from Jocelynn Manriquez RN with use of SBAR Why are they here: Pt was released from [facility] to attend his conservatorship hearing. Decision was made to LPS conserve him and he was then brought to [facility]. Pt was showered and skin check completed along with MRSA swab. Pt overall cooperative, but also restless and wanted to sleep. Pt belongings inventoried and pt oriented to unit. Pt tolerated a moderate level of questions before falling asleep. Pt appears to have been taking Clozaril, Haldol and Depakote in [facility]. Pt tolerated assessments well and reports being very hungry. Pt appears anxious and guarded yet cooperative. Assessment What has happened this shift: Attended breakfast and took meds. He was polite but very brief in his answers and did not want to talk for 1:1. He was isolative to room and did not want snacks. He slept most of the day. . S/I, H/I: Pt Denies A/VH: Pt Denies Sleep: Slept most of the day ADL's: Independent Group attendance: No group Were meds taken: Yes Any med S/E: None noted Mental Status Exam Appearance: Wearing unit scrubs Eye contact: Fair Behavior: Guarded, withdrawn, isolative Speech: Quiet slightly mumbled Mood: Guarded Affect: Blunted Thought process: Unable to assess Thought Content: Unable to assess Cognition: Alert Insight: Poor Judgment: Poor Interventions PRN's used: None Therapeutic interventions: Ensured contract for safety, 1:1 assessment, therapeutic communication with active listening, maintained a safe and supportive environment, medication administration/education/monitoring, maintained Q 15 minute safety checks, limit setting, distraction, and redirection. Restraints/seclusion/emergency medication: N/A Justification of Continued Inpatient Treatment: Per Dr. Mckinley, pt. requires a safe and supportive environment, medication adjustments, and interruption of current crisis. We will continue to build a rapport and relationship with the patient but at this time he is very uncooperative.
[2021-01-01 19:43] VITALS: BP 100/60
[2021-01-01] MEDS: clozapine 25mg tablet PO SCH (21:03)
[2021-01-01] MEDS: clozapine 100mg tablet PO SCH (21:03)
--- NOTE | 2021-01-02 04:50 | NUR ---
Nursing Progress Note: Legal hold: LPS Client on involuntary status for GD Report received from EMILIANO Ramos with use of SBAR Why are they here: [facility]atorship hearing. Decision was made to LPS conserve him and he was then brought to [facility]. Pt was showered and skin check completed along with MRSA swab. Pt overall cooperative, but also restless and wanted to sleep. Pt belongings inventoried and pt oriented to unit. Pt tolerated a moderate level of questions before falling asleep. Pt appears to have been taking Clozaril, Haldol and Depakote in residential. Pt tolerated assessments well and reports being very hungry. Pt appears anxious and guarded yet cooperative. Assessment What has happened this shift: Patient observed sleeping in bed at the beginning of shift. Pleasant and cooperative with care; compliant with medication. Patient denies SI, HI, A/VH; does not appear to be responding to IS and no delusional thought content expressed. Patient remained in bed throughout this shift; observed sleeping and does not appear to be having difficulty. S/I, H/I: Denies A/VH: Denies Sleep: Refer to sleep assessment ADL's: Independent Group attendance: NA Were meds taken: Yes Any med S/E: None observed or reported Mental Status Exam Appearance: Appropriately dressed, wrapped up tightly in his blankets while in bed Eye contact: Avoidant Behavior: Cooperative, avoidant, guarded, and withdrawn Speech: Clear, audible, minimal Mood: Guarded Affect: Blunt, constricted Thought process: Thought blocking Thought Content: Unable to assess Cognition: A&O x4 Insight: Poor Judgment: Poor Interventions PRN's used: None Therapeutic interventions: Ensured contract for safety, 1:1 assessment, therapeutic communication with active listening, maintained a safe and supportive environment, medication administration/education/monitoring, maintained Q 15 minute safety checks, limit setting, distraction, and redirection. Restraints/seclusion/emergency medication: N/A Justification of Continued Inpatient Treatment: Per Dr. Mckinley, pt. requires a safe and supportive environment, medication adjustments, and interruption of current crisis. We will continue to build a rapport and relationship with the patient but at this time he is very uncooperative.
[2021-01-02 08:00] VITALS: BP 104/69
[2021-01-02] MEDS: haloperidol 5mg tablet PO SCH ×2 (08:23→20:04)
[2021-01-02] MEDS: divalproex sodium 500mg tablet.DR PO SCH ×2 (08:23→20:04)
--- NOTE | 2021-01-02 09:00 | NUR ---
Initial: Pt admit DX schizoaffective d/o per EMR. PO 75-100% avg regular diet meeting needs. LBM 21 but daily formed stools noted in EMR. No nutrition intervention at this time. Will continue to monitor. Rec: 1. continue regular diet 2. routine bowel care 3. weekly wts Addendum: 01/02/21 at [address] Amended: Links added.
--- NOTE | 2021-01-02 14:20 | NUR ---
Nursing Progress Note: Arnold Schroeder Legal hold: LPS Client on involuntary status for GD Report received from Jocelynn Manriquez RN with use of SBAR Why are they here: Pt was released from [facility] to attend his conservatorship hearing. Decision was made to LPS conserve him and he was then brought to [facility]. Pt was showered and skin check completed along with MRSA swab. Pt overall cooperative, but also restless and wanted to sleep. Pt belongings inventoried and pt oriented to unit. Pt tolerated a moderate level of questions before falling asleep. Pt appears to have been taking Clozaril, Haldol and Depakote in skilled nursing. Pt tolerated assessments well and reports being very hungry. Pt appears anxious and guarded yet cooperative. Assessment What has happened this shift: Pt observed sleeping in bed upon shift change. Pt up for meals, but returns to his room immediately when finished. Patient appears guarded and withdrawn on this shift. Patient has a linear thought process but does not engage in conversation unless prompted. Pt is constricted and blunt during conversation. Pt is compliant with his medications. Pt encouraged to be present in the milieu, but patient spent most of the day self-isolating in his room between meals. Pt denies suicidal and homicidal thoughts and denies hallucinations today. S/I, H/I: Denies A/VH: Denies Sleep: pt napped on and off all day ADL's: Independent Group attendance: No Were meds taken: Yes Any med S/E: None Mental Status Exam Appearance: Appropriately dressed, clean, casually groomed Eye contact: Fair Behavior: Closed-off, avoidant, guarded, and withdrawn Speech: Clear but minimal, does not engage in conversation unless prompted Mood: Guarded Affect: Blunt, Constricted Thought process: Linear Thought Content: Wants to leave and move in with his uncle. Does not want to be conserved. Cognition: A&O x4 Insight: Poor Judgment: Poor Interventions PRN's used: none Therapeutic interventions: Ensured contract for safety, 1:1 assessment, therapeutic communication with active listening, maintained a safe and supportive environment, medication administration/education/monitoring, maintained Q 15 minute safety checks, limit setting, distraction, and redirection. Restraints/seclusion/emergency medication: N/A Justification of Continued Inpatient Treatment: Per Dr. Mckinley, pt. requires a safe and supportive environment, medication adjustments, and interruption of current crisis. We will continue to build a rapport and relationship with the patient but at this time he is very uncooperative.
[2021-01-02] MEDS: LORazepam 1 MG tablet PO PRN (15:54)
[2021-01-02] MEDS: clozapine 25mg tablet PO SCH (20:04)
[2021-01-02] MEDS: clozapine 100mg tablet PO SCH (20:04)
[2021-01-02 20:09] VITALS: BP 143/96
--- NOTE | 2021-01-02 23:52 | NUR ---
Nursing Progress Note: Legal hold: LPS Client on involuntary status for GD Report received from EMILIANO Ramos with use of SBAR Why are they here: Pt was released [facility] to attend his conservatorship hearing. Decision was made to LPS conserve him and he was then brought to [facility]. Pt was showered and skin check completed along with MRSA swab. Pt overall cooperative, but also restless and wanted to sleep. Pt belongings inventoried and pt oriented to unit. Pt tolerated a moderate level of questions before falling asleep. Pt appears to have been taking Clozaril, Haldol and Depakote in [facility]. Pt tolerated assessments well and reports being very hungry. Pt appears anxious and guarded yet cooperative. Assessment What has happened this shift: Patient has been out of his room tonight. He started watching a movie in the community room, but soon after he asked for headphones, then began pacing. He stopped long enough for this nurse to introduce self, but declined to answer any assessment questions, except to deny all MH symptoms. As he paced through the night, he could be seen and heard talking to himself. The patient was compliant with HS medications, and went to his room soon after. He appeared to be sleeping, but came and asked for a remote to watch TV, but was denied. So then he asked to take a shower, which was also denied until the morning. He walked back down the banuelos loudly talking to himself. S/I, H/I: Denies A/VH: Denies, but is seen and heard talking to himself. Sleep: Refer to sleep assessment ADL's: Independent Group attendance: NA Were meds taken: Yes Any med S/E: None observed or reported Mental Status Exam Appearance: Appropriately dressed in street clothes, wrapped with a blanket. Eye contact: Avoidant Behavior: Cooperative, avoidant, guarded, and withdrawn Speech: Clear, audible, minimal Mood: Guarded Affect: Blunt, constricted Thought process: Thought blocking Thought Content: "When do I get to leave?" Cognition: A&O x4 Insight: Poor Judgment: Poor Interventions PRN's used: None Therapeutic interventions: Ensured contract for safety, 1:1 assessment, therapeutic communication with active listening, maintained a safe and supportive environment, medication administration/education/monitoring, maintained Q 15 minute safety checks, limit setting, distraction, and redirection. Restraints/seclusion/emergency medication: N/A Justification of Continued Inpatient Treatment: Per Dr. Mckinley, pt. requires a safe and supportive environment, medication adjustments, and interruption of current crisis. We will continue to build a rapport and relationship with the patient but at this time he is very uncooperative.
[2021-01-03] MEDS: divalproex sodium 500mg tablet.DR PO SCH ×2 (07:36→20:01)
[2021-01-03] MEDS: haloperidol 5mg tablet PO SCH ×2 (07:36→20:02)
[2021-01-03 08:38] VITALS: BP 127/76
--- NOTE | 2021-01-03 17:25 | NUR ---
Nursing Progress Note: Arnold Schroeder Legal hold: [facility] Client on involuntary status for GD Report received from Jocelynn Manriquez RN with use of SBAR Why are they here: Pt was released from [facility] to attend his conservatorship hearing. Decision was made to LPS conserve him and he was then brought to [facility]. Pt was showered and skin check completed along with MRSA swab. Pt overall cooperative, but also restless and wanted to sleep. Pt belongings inventoried and pt oriented to unit. Pt tolerated a moderate level of questions before falling asleep. Pt appears to have been taking Clozaril, Haldol and Depakote in retirement. Pt tolerated assessments well and reports being very hungry. Pt appears anxious and guarded yet cooperative. Assessment What has happened this shift: Patient was asleep at change of shift and up soon after. Patient was listening to headphones and stomping around in the hallway. Patient wanted to know who had the number 1 headphones and we advised him we don't keep track to who has which number. No explanation given as to why he needed this information. Patient then ate breakfast and went to bed. patient napped the entire day except for snack and meals. RN spoke to patient as he was laying in bed and patient did not want to talk. RN asked patient why he is here and patient stated "because I am being conserved." RN asked patient if he wants to be conserved and patient stated no. Patient states he could go to [facility] to eat and sleep. Patient denies SI/HI, A/V hallucinations and depression. Patient barely answers questions. S/I, H/I: Denies A/VH: Denies Sleep: pt napped on and off all day ADL's: Independent Group attendance: No Were meds taken: Yes Any med S/E: None Mental Status Exam Appearance: Dressed in his own clothes. Appears neat. Eye contact: Fair Behavior: Closed-off, avoidant, guarded, and withdrawn Speech: Clear but minimal, does not engage in conversation unless prompted Mood: Guarded Affect: Flat Thought process: Linear Thought Content: Does not want to be conserved. Cognition: A&O x4 Insight: Poor Judgment: Poor Interventions PRN's used: none Therapeutic interventions: Ensured contract for safety, 1:1 assessment, therapeutic communication with active listening, maintained a safe and supportive environment, medication administration/education/monitoring, maintained Q 15 minute safety checks, limit setting, distraction, and redirection. Restraints/seclusion/emergency medication: N/A Justification of Continued Inpatient Treatment: Per Dr. Mckinley, pt. requires a safe and supportive environment, medication adjustments, and interruption of current crisis. We will continue to build a rapport and relationship with the patient but at this time he is very uncooperative.
[2021-01-03] MEDS: clozapine 25mg tablet PO SCH (20:02)
[2021-01-03] MEDS: clozapine 100mg tablet PO SCH (20:02)
[2021-01-03 20:26] VITALS: BP 103/55
--- NOTE | 2021-01-03 22:39 | NUR ---
Nursing Progress Note: Legal hold: LPS Client on involuntary status for GD Report received from EMILIANO Ramos with use of SBAR Why are they here: Pt was released from [facility] to attend his conservatorship hearing. Decision was made to LPS conserve him and he was then brought to [facility]. Pt was showered and skin check completed along with MRSA swab. Pt overall cooperative, but also restless and wanted to sleep. Pt belongings inventoried and pt oriented to unit. Pt tolerated a moderate level of questions before falling asleep. Pt appears to have been taking Clozaril, Haldol and Depakote in retirement. Pt tolerated assessments well and reports being very hungry. Pt appears anxious and guarded yet cooperative. Assessment What has happened this shift: Received the patient sleeping in his bed. This RN woke him for 1:1, but he said, "I'm sleeping, not gonna talk right now." Left him to sleep until snack time, but he still didn't get up. However was able to get him to take HS medications, before he told this nurse to get out. The patient has continued to sleep. S/I, H/I: Denies A/VH: Denies. Sleep: Refer to sleep assessment ADL's: Independent Group attendance: N/A Were meds taken: Yes, with persuasion. Any med S/E: None observed or reported Mental Status Exam Appearance: Appropriately dressed in street clothes, wrapped in blankets head to toe. Eye contact: Avoidant Behavior: Avoidant, guarded, and withdrawn, sleeping. Speech: Clear, audible, minimal Mood: Irritable Affect: Blunt, constricted Thought process: Thought blocking Thought Content: "When do I get to leave?" Cognition: A&O x4 Insight: Poor Judgment: Poor Interventions PRN's used: None Therapeutic interventions: Ensured contract for safety, 1:1 assessment, therapeutic communication with active listening, maintained a safe and supportive environment, medication administration/education/monitoring, maintained Q 15 minute safety checks, limit setting, distraction, and redirection. Restraints/seclusion/emergency medication: N/A Justification of Continued Inpatient Treatment: Per Dr. Mckinley, pt. requires a safe and supportive environment, medication adjustments, and interruption of current crisis. We will continue to build a rapport and relationship with the patient but at this time he is very uncooperative.
[2021-01-04] MEDS: haloperidol 5mg tablet PO SCH ×2 (07:46→20:04)
[2021-01-04] MEDS: divalproex sodium 500mg tablet.DR PO SCH ×2 (07:46→20:04)
[2021-01-04 08:35] VITALS: BP 130/79
[2021-01-04] MEDS: nicotine 7mg patch - 24hr TD SCH (09:47)
--- NOTE | 2021-01-04 15:18 | NUR ---
Pt. attended group today. We talked about how to recognize when you are in a Co-dependent relationship. They also did a worksheet where they had to fill out their Strengths and Qualities about themselves in order to focus on what they do well or what they like about themselves. Pt started out in the group but only lasted a few minutes in the group. He appeared a bit restless and would get out of his seat a lot. At one point he started laughing and then he got up and left the group. Cecile De Leon, PERSON[employer] SAL[employer] REP
--- NOTE | 2021-01-04 16:21 | NUR ---
Nursing Progress Note: Legal hold: [facility] Client on involuntary status for GD Report received from Jocelynn Manriquez RN with use of SBAR Why are they here: Pt was released from [facility] to attend his conservatorship hearing. Decision was made to LPS conserve him and he was then brought to [facility]. Pt was showered and skin check completed along with MRSA swab. Pt overall cooperative, but also restless and wanted to sleep. Pt belongings inventoried and pt oriented to unit. Pt tolerated a moderate level of questions before falling asleep. Pt appears to have been taking Clozaril, Haldol and Depakote in snf. Pt tolerated assessments well and reports being very hungry. Pt appears anxious and guarded yet cooperative. Assessment What has happened this shift: Patient was asleep at change of shift. RN awoke patient to give him his medication. Patient got up just after meds because breakfast had arrived. Patient was up after breakfast for a couple of hours. Patient advised RN that he recognized RN from the last time he was here. Patient was listening to headphones and walking around the hallway. Patient went to group for a short time and then napped again. After lunch patient was up and walking around. Patient sat with peers chatting in the Community Room. Patient with RN 1 on 1 in his room. Patient stated he wasn't feeling well and had a stomach ache. RN had just handed him M & Ms and asked if maybe he shouldn't eat those. Patient stated he would be fine. Patient did not have any delusional statements today. Patient was pleasant and in no apparent distress. S/I, H/I: Denies A/VH: Denies Sleep: pt napped on and off all day ADL's: Independent Group attendance: Yes Were meds taken: Yes Any med S/E: None Mental Status Exam Appearance: Dressed in his own clothes. Eye contact: Good Behavior: Pleasant but guarded Speech: Clear but minimal Mood: Guarded Affect: Flat Thought process: Linear Thought Content: Does not want to be conserved. Cognition: A&O x4 Insight: Poor Judgment: Poor Interventions PRN's used: none Therapeutic interventions: Ensured contract for safety, 1:1 assessment, therapeutic communication with active listening, maintained a safe and supportive environment, medication administration/education/monitoring, maintained Q 15 minute safety checks, limit setting, distraction, and redirection. Restraints/seclusion/emergency medication: N/A Justification of Continued Inpatient Treatment: Per Dr. Mckinley, pt. requires a safe and supportive environment, medication adjustments, and interruption of current crisis. We will continue to build a rapport and relationship with the patient but at this time he is very uncooperative.
[2021-01-04] MEDS: LORazepam 1 MG tablet PO PRN (20:04)
[2021-01-04] MEDS: clozapine 25mg tablet PO SCH (20:04)
[2021-01-04] MEDS: clozapine 100mg tablet PO SCH (20:05)
[2021-01-04 20:34] VITALS: BP 147/82
[2021-01-04] MEDS ORDERED: NICOTINE POLACRILEX 4 MG LOZENGE BC PRN (20:40)
--- NOTE | 2021-01-05 01:49 | NUR ---
Nursing Progress Note: Arnold Legal hold: LPS Client on involuntary status for GD Report received from Richard CUMMINGS with use of SBAR Why are they here: Pt was released from [facility] to attend his conservatorship hearing. Decision was made to LPS conserve him and he was then brought to [facility]. Pt was showered and skin check completed along with MRSA swab. Pt overall cooperative, but also restless and wanted to sleep. Pt belongings inventoried and pt oriented to unit. Pt tolerated a moderate level of questions before falling asleep. Pt appears to have been taking Clozaril, Haldol and Depakote in [facility]. Pt tolerated assessments well and reports being very hungry. Pt appears anxious and guarded yet cooperative. Assessment What has happened this shift: Pt up and pacing the hallways with headphones on with his roommate, talking and making conservations with his roommate. Pt states he is doing alright, Dari got like 3 years down and I am going to get conserved. Pt then begins to laugh out loud. Pt denies MH symptoms however pt observed talking to himself in the hallway. Pt up for snacks in the community room, at med pass time pt initially refused meds, however CN went in to talk with him, pt accepted all meds. S/I, H/I: Denies A/VH: Denies, however responds to internal stimuli Sleep: ADL's: Independent Group attendance: Yes Were meds taken: Yes Any med S/E: None Mental Status Exam Appearance: Dressed in his own clothes. Eye contact: Good Behavior: Pleasant but guarded Speech: Clear but minimal Mood: Guarded Affect: Flat Thought process: Linear Thought Content: Does not want to be conserved. Cognition: A&O x4 Insight: Poor Judgment: Poor Interventions PRN's used: none Therapeutic interventions: Ensured contract for safety, 1:1 assessment, therapeutic communication with active listening, maintained a safe and supportive environment, medication administration/education/monitoring, maintained Q 15 minute safety checks, limit setting, distraction, and redirection. Restraints/seclusion/emergency medication: N/A Justification of Continued Inpatient Treatment: Per Dr. Mckinley, pt. requires a safe and supportive environment, medication adjustments, and interruption of current crisis. We will continue to build a rapport and relationship with the patient but at this time he is very uncooperative.
[2021-01-05 07:52] VITALS: BP 119/63
[2021-01-05] MEDS: nicotine 7mg patch - 24hr TD SCH (08:12)
[2021-01-05] MEDS: haloperidol 5mg tablet PO SCH ×2 (08:13→20:06)
[2021-01-05] MEDS: divalproex sodium 500mg tablet.DR PO SCH ×2 (08:14→20:06)
[2021-01-05] MEDS: LORazepam 1 MG tablet PO PRN (10:32)
--- NOTE | 2021-01-05 11:10 | NUR ---
Nursing Progress Note: Legal hold: LPS Client on involuntary status for GD Report received from EMILIANO Montes with use of SBAR Why are they here: 12/2019 pt placed at [place], incompetent to stand trial. He had a felony charge of 2nd degree robbery. Pt was given the [facility] and [place] psychologist determined significant cognitive impairment and he was sent back to [facility]. Pt was released from [facility] to attend his conservatorship hearing. Decision was made to LPS conserve him and he was then brought to [facility]. Assessment What has happened this shift: Pt paced the halls in the morning. He described being agitated then asked for an Ativan. Ativan 1mg PO given. Pt later shared "yes, that was helpful." Pt keeps to himself on the unit. He watched TV, paced ont halls with a headset on or napped. S/I, H/I: Denies A/VH: Denies; appears to RIS seen mumbling in the hallway Sleep: pt napped om AM ADL's: Independent Group attendance: Yes Were meds taken: Yes Any med S/E: None Mental Status Exam Appearance: Young male with dark hair dressed in Khaki colored clothing Eye contact: Good Behavior: Guarded Speech: At times somewhat pressured Mood: Guarded Affect: Flat Thought process: Linear Thought Content: Upset over conservatorship Cognition: A&O x4 Insight: Poor Judgment: Poor Interventions PRN's used: Ativan 1mg PO Therapeutic interventions: Provided 1:1 am assessment with therapeutic communication and active listening, medication administration/education/monitoring, encouraged group attendance and participation, q 15min safety checks. Restraints/seclusion/emergency medication: N/A Justification of Continued Inpatient Treatment: Per Dr. Mckinley, pt. requires a safe and supportive environment, medication adjustments, and interruption of current crisis. We will continue to build a rapport and relationship with the patient but at this time he is very uncooperative.
--- NOTE | 2021-01-05 13:15 | NUR ---
Pt. attended group today. The group today was about Anxiety, they were asked to identify the natural and silent triggers they have experienced. The second half of group was about what coping skills we can utilize when we are anxious. This Respiratory Manager led a Visualization/Breathing technique and also had then scale their anxiety levels for today. Pt struggled to stay in group, he spent most of the group time walking in and out of the group. ANCA CardenasW
[2021-01-05] MEDS: clozapine 100mg tablet PO SCH (20:06)
[2021-01-05] MEDS: clozapine 25mg tablet PO SCH (20:06)
[2021-01-05 20:12] VITALS: BP 124/72
--- NOTE | 2021-01-06 01:10 | NUR ---
Nursing Progress Note: Arnold Legal hold: [facility] Client on involuntary status for GD Report received from Sherri CUMMINGS with use of SBAR Why are they here: 12/2019 pt placed at [place], incompetent to stand trial. He had a felony charge of 2nd degree robbery. Pt was given the [facility] and [place] psychologist determined significant cognitive impairment and he was sent back to [facility]. Pt was released from [facility] to attend his conservatorship hearing. Decision was made to [facility] conserve him and he was then brought to [facility]. Assessment What has happened this shift: Pt spent most of the evening in bed. Did not get up for snacks, stated he was good; took prescribed medication and went back to bed. He will respond to close ended questioning only. S/I, H/I: Denies A/VH: Denies Sleep: ADL's: Independent Group attendance: Were meds taken: Yes Any med S/E: None Mental Status Exam Appearance: Young male with dark hair dressed in Khaki colored clothing Eye contact: Good Behavior: Guarded Speech: At times somewhat pressured Mood: Guarded Affect: Flat Thought process: Linear Thought Content: Sleeping Cognition: A&O x4 Insight: Poor Judgment: Poor Interventions PRN's used: Therapeutic interventions: Provided 1:1 am assessment with therapeutic communication and active listening, medication administration/education/monitoring, encouraged group attendance and participation, q 15min safety checks. Restraints/seclusion/emergency medication: N/A Justification of Continued Inpatient Treatment: Per Dr. Mckinley, pt. requires a safe and supportive environment, medication adjustments, and interruption of current crisis. We will continue to build a rapport and relationship with the patient but at this time he is very uncooperative.
[2021-01-06 07:31] VITALS: BP 114/63
[2021-01-06] MEDS: divalproex sodium 500mg tablet.DR PO SCH ×2 (08:49→20:16)
[2021-01-06] MEDS: haloperidol 5mg tablet PO SCH ×2 (08:49→20:16)
[2021-01-06] MEDS: nicotine 7mg patch - 24hr TD SCH (08:50)
[2021-01-06] MEDS: LORazepam 1 MG tablet PO PRN (10:18)
--- NOTE | 2021-01-06 16:03 | NUR ---
Nursing Progress Note: Arnold Legal hold: LPS Client on involuntary status for GD Report received from Jyoti CUMMINGS with use of SBAR Why are they here: Pt was [facility] from [facility] to attend his conservatorship hearing. Decision was made to LPS conserve him and he was then brought to [facility]. Pt was showered and skin check completed along with MRSA swab. Pt overall cooperative, but also restless and wanted to sleep. Pt belongings inventoried and pt oriented to unit. Pt tolerated a moderate level of questions before falling asleep. Pt appears to have been taking Clozaril, Haldol and Depakote in group home. Pt tolerated assessments well and reports being very hungry. Pt appears anxious and guarded yet cooperative. Assessment What has happened this shift: RN received pt. asleep in bed at start of shift. Pt. awoke for breakfast and took all medications. Pt. is anxious and pacing the unit listening to headphones. Pt. asking about his discharge, asks if he will go back to group home. Pt. requested anxiolytic and received Ativan 1mg po with moderate effect. Pt. spoke with conservator. Pt. denies AH but appears to be responding to internal stimuli. Pt. makes multiple abrupt requests when pacing by the nurses station. RN asked pt. when the last time he showered was and pt. states, Its been a while. RN asked pt. if he wanted to shower and pt. states, Yes and then changed his mind. S/I, H/I: Denies A/VH: Denies, however responds to internal stimuli Sleep: Pt. slept 8.75hrs on NOC shift and did not appear to sleep on day shift. ADL's: Independent with prompting. Group attendance: Yes Were meds taken: Yes Any med S/E: Denies Mental Status Exam Appearance: Disheveled, wearing the same outfit multiple days in a row. Eye contact: Good Behavior: Cooperative, guarded, pacing the halls and listening to headphones, requesting for TV station to be changed multiple times. Speech: Clear but minimal Mood: Anxious Affect: Flat Thought process: Linear but perseverates. Thought Content: Anxious about going back to group home. Cognition: A&O x4 Insight: Poor Judgment: Poor Interventions PRN's used: Ativan x1 Therapeutic interventions: Ensured contract for safety, 1:1 assessment, therapeutic communication with active listening, maintained a safe and supportive environment, medication administration/education/monitoring, maintained Q 15 minute safety checks, limit setting, distraction, and redirection. Restraints/seclusion/emergency medication: N/A Justification of Continued Inpatient Treatment: Per Dr. Mckinley, pt. requires a safe and supportive environment, medication adjustments, and interruption of current crisis.
[2021-01-06 20:00] VITALS: BP 121/65
[2021-01-06] MEDS: clozapine 25mg tablet PO SCH (20:17)
[2021-01-06] MEDS: clozapine 100mg tablet PO SCH (20:17)
--- NOTE | 2021-01-07 02:57 | NUR ---
Nursing Progress Note: Arnold Legal hold: LPS Client on involuntary status for GD Report received from Sherri CUMMINGS with use of SBAR Why are they here: Pt was released from [facility] to attend his conservatorship hearing. Decision was made to LPS conserve him and he was then brought to [facility]. Pt was showered and skin check completed along with MRSA swab. Pt overall cooperative, but also restless and wanted to sleep. Pt belongings inventoried and pt oriented to unit. Pt tolerated a moderate level of questions before falling asleep. Pt appears to have been taking Clozaril, Haldol and Depakote in senior care. Pt tolerated assessments well and reports being very hungry. Pt appears anxious and guarded yet cooperative. Assessment What has happened this shift: Received pt lying in bed asleep at change of shift. Pt up for a snack and stated he was doing well and his day was just fine. Pt wouldnt elaborate on anything else and wouldnt answer questions stating, I am doing just fine. Pt took all prescribed medications without any issues. S/I, H/I: Denies A/VH: Denies, however responds to internal stimuli Sleep: ADL's: Independent with prompting. Group attendance: Were meds taken: Yes Any med S/E: Denies Mental Status Exam Appearance: Disheveled, wearing the same outfit multiple days in a row. Eye contact: Good Behavior: Cooperative, guarded, sleepy Speech: Clear but minimal Mood: Anxious Affect: Flat Thought process: Linear but perseverates. Thought Content: Anxious about going back to senior care. Cognition: A&O x4 Insight: Poor Judgment: Poor Interventions PRN's used: Therapeutic interventions: Ensured contract for safety, 1:1 assessment, therapeutic communication with active listening, maintained a safe and supportive environment, medication administration/education/monitoring, maintained Q 15 minute safety checks, limit setting, distraction, and redirection. Restraints/seclusion/emergency medication: N/A Justification of Continued Inpatient Treatment: Per Dr. Mckinley, pt. requires a safe and supportive environment, medication adjustments, and interruption of current crisis.
[2021-01-07 07:54] VITALS: BP 116/68
[2021-01-07] MEDS: divalproex sodium 500mg tablet.DR PO SCH ×2 (08:11→20:25)
[2021-01-07] MEDS: haloperidol 5mg tablet PO SCH ×2 (08:11→20:25)
[2021-01-07] MEDS: nicotine 7mg patch - 24hr TD SCH (08:28)
[2021-01-07] MEDS: LORazepam 1 MG tablet PO PRN (13:04)
[2021-01-07] MEDS ORDERED: NICOTINE POLACRILEX 2 MG LOZENGE BC PRN (15:45)
[2021-01-07] MEDS: NICOTINE POLACRILEX 2 MG LOZENGE BC PRN (16:21)
--- NOTE | 2021-01-07 17:10 | NUR ---
Nursing Progress Note: Legal hold: LPS Client on involuntary status for GD Report received from Richard CUMMINGS with use of SBAR Why are they here: Pt was released from [facility] to attend his conservatorship hearing. Decision was made to LPS conserve him and he was then brought to [facility]. Pt was showered and skin check completed along with MRSA swab. Pt overall cooperative, but also restless and wanted to sleep. Pt belongings inventoried and pt oriented to unit. Pt tolerated a moderate level of questions before falling asleep. Pt appears to have been taking Clozaril, Haldol and Depakote in long-term. Pt tolerated assessments well and reports being very hungry. Pt appears anxious and guarded yet cooperative. Assessment What has happened this shift: RN received pt. asleep in bed at start of shift. Pt. awoke for breakfast and took all medications. Pt. is anxious and pacing the unit listening to headphones. 1:1 done at bedside, pt. c/o anxiety r/t fear of being conserved. Pt. requesting anxiolytic and given Ativan 1mg po with good effect. Pt. is impulsive and intrusive at times, coming up to nurses station and interrupting other patients to make requests of staff. Pt. overheard asking bizarre questions such as, Are there guards around space so I dont F it up anymore?. Pt encouraged to shower and wash clothes today as pt. has noticeable body odor. S/I, H/I: Denies A/VH: Denies, however pt. appears to respond to internal stimuli Sleep: Pt. slept 8 hrs on NOC shift and napped approx. 1hr on day shift. ADL's: Independent with prompting. Pt. has noticeable body odor. Group attendance: Yes Were meds taken: Yes Any med S/E: Denies Mental Status Exam Appearance: Disheveled, wearing the same outfit multiple days in a row. Eye contact: Good Behavior: Cooperative, guarded, pacing the halls and listening to headphones. Socially withdrawn. Speech: Clear but minimal Mood: Anxious Affect: Flat Thought process: Linear but perseverates. Thought Content: Does not want to be conserved. Cognition: A&O x4 Insight: Poor Judgment: Poor Interventions PRN's used: Ativan x1 Therapeutic interventions: Ensured contract for safety, 1:1 assessment, therapeutic communication with active listening, maintained a safe and supportive environment, medication administration/education/monitoring, maintained Q 15 minute safety checks, limit setting, distraction, and redirection. Restraints/seclusion/emergency medication: N/A Justification of Continued Inpatient Treatment: Per Dr. Mckinley, pt. requires a safe and supportive environment, medication adjustments, and interruption of current crisis.
[2021-01-07 19:27] VITALS: BP 127/74
[2021-01-07] MEDS: clozapine 100mg tablet PO SCH (20:25)
[2021-01-07] MEDS: clozapine 25mg tablet PO SCH (20:25)
--- NOTE | 2021-01-08 02:47 | NUR ---
Nursing Progress Note: Legal hold: LPS Client on involuntary status for GD Report received from Richard CUMMINGS with use of SBAR Why are they here: Pt was released from [facility] to attend his conservatorship hearing. Decision was made to LPS conserve him and he was then brought to [facility]. Pt was showered and skin check completed along with MRSA swab. Pt overall cooperative, but also restless and wanted to sleep. Pt belongings inventoried and pt oriented to unit. Pt tolerated a moderate level of questions before falling asleep. Pt appears to have been taking Clozaril, Haldol and Depakote in correction. Pt tolerated assessments well and reports being very hungry. Pt appears anxious and guarded yet cooperative. Assessment What has happened this shift: Pt. awake and sitting in chair in room at start of shift. 1:1 done at bedside, Pt. asks this RN about his upcoming court date. Pt. is anxious and requests anxiolytic, RN informed pt. that it is too early to received Ativan. RN encouraged pt. to shower and pt. reports that he already showered today, pt. has noticeable body odor. Pt. feel asleep in his bed. Pt. awoke for HS snack. Pt. took HS medications and then fell back asleep. S/I, H/I: Denies A/VH: Denies, however, pt. appears to be responding to internal stimuli. Sleep: See sleep assessment. ADL's: Independent with prompting. Pt. has noticeable body odor but states that he showered today. Group attendance: Yes Were meds taken: Yes Any med S/E: Denies Mental Status Exam Appearance: Disheveled, wearing the same outfit multiple days in a row. Eye contact: Good Behavior: Cooperative, guarded, pacing the halls and listening to headphones. Socially withdrawn. Speech: Clear but minimal Mood: Anxious Affect: Flat Thought process: Perseverative. Thought Content: Concerned about upcoming court date. Cognition: A&O x4 Insight: Poor Judgment: Poor Interventions PRN's used: None Therapeutic interventions: Ensured contract for safety, 1:1 assessment, therapeutic communication with active listening, maintained a safe and supportive environment, medication administration/education/monitoring, maintained Q 15 minute safety checks, limit setting, distraction, and redirection. Restraints/seclusion/emergency medication: N/A Justification of Continued Inpatient Treatment: Per Dr. Mckinley, pt. requires a safe and supportive environment, medication adjustments, and interruption of current crisis.
[2021-01-08] MEDS: divalproex sodium 500mg tablet.DR PO SCH ×2 (07:54→19:15)
[2021-01-08] MEDS: haloperidol 5mg tablet PO SCH ×2 (07:54→19:15)
[2021-01-08] MEDS: nicotine 7mg patch - 24hr TD SCH (07:54)
[2021-01-08 08:00] VITALS: BP 133/80
--- NOTE | 2021-01-08 15:41 | NUR ---
Nursing Progress Note: Legal hold: [facility] Client on involuntary status for GD Report received from EMILIANO Polanco with use of SBAR Why are they here: In December of 2019 pt placed at [place], incompetent to stand trial. He had a felony charge of 2nd degree robbery. Pt was given the [facility] and [place] psychologist determined significant cognitive impairment and he was sent back to [facility]. Pt was released from Group Home to attend his conservatorship hearing. The decision was made to LPS conserve him and he was then brought to [facility]. Assessment What has happened this shift: Pt slept through breakfast and morning medication pass. He received morning Meds closer to 9am since he was so difficult to wake for breakfast. Pt slept most of this shift. He is compliant with treatment. S/I, H/I: Denies A/VH: Denies Sleep: Slept most of this shift ADL's: Independent Group attendance: Yes Were meds taken: Yes Any med S/E: None Mental Status Exam Appearance: Young male with short dark hair wearing green scrubs Eye contact: Good Behavior: Guarded, depressed Speech: pressured Mood: Guarded Affect: Flat Thought process: Linear Thought Content: Upset over conservatorship Cognition: A&O x4 Insight: Poor Judgment: Poor Interventions PRN's used: N/A Therapeutic interventions: Provided 1:1 am assessment with therapeutic communication and active listening, medication administration/education/monitoring, encouraged personal hygiene and up for meals and snacks, q 15min safety checks. Restraints/seclusion/emergency medication: N/A Justification of Continued Inpatient Treatment: Per Dr. Mckinley, pt. requires a safe and supportive environment, medication adjustments, and interruption of current crisis. We will continue to build a rapport and relationship with the patient but at this time he is very uncooperative.
[2021-01-08] MEDS: LORazepam 1 MG tablet PO PRN (17:16)
[2021-01-08 19:00] VITALS: BP 137/88
[2021-01-08] MEDS: clozapine 25mg tablet PO SCH (20:03)
[2021-01-08] MEDS: clozapine 100mg tablet PO SCH (20:03)
--- NOTE | 2021-01-09 02:48 | NUR ---
Nursing Progress Note: Legal hold: [facility] Client on involuntary status for GD Report received from [place] RN with use of SBAR Why are they here: In December of 2019 pt placed at [place], incompetent to stand trial. He had a felony charge of 2nd degree robbery. Pt was given the [facility] and [place] psychologist determined significant cognitive impairment and he was sent back to [facility]. Pt was released from [facility] to attend his conservatorship hearing. The decision was made to LPS conserve him and he was then brought to [facility]. Assessment Pt had a good evening, mostly walking the halls and sometimes listening to headphones in bed. Pt reported mild anxiety and requested hs meds as early as possible. No behavior issues noted and pt denies hearing voices. All hs meds taken without issue. S/I, H/I: Denies A/VH: Denies Sleep: see sleep assessment ADL's: Independent Group attendance: Yes Were meds taken: Yes Any med S/E: None Mental Status Exam Appearance: Young male with short dark hair wearing green scrubs Eye contact: Good Behavior: Guarded, depressed Speech: slow to respond Mood: Guarded Affect: Flat Thought process: Linear Thought Content: Upset over conservatorship Cognition: A&O x4 Insight: Poor Judgment: Poor Interventions PRN's used: N/A Therapeutic interventions: Provided 1:1 am assessment with therapeutic communication and active listening, medication administration/education/monitoring, encouraged personal hygiene and up for meals and snacks, q 15min safety checks. Restraints/seclusion/emergency medication: N/A Justification of Continued Inpatient Treatment: Per Dr. Mckinley, pt. requires a safe and supportive environment, medication adjustments, and interruption of current crisis. We will continue to build a rapport and relationship with the patient but at this time he is very uncooperative.
[2021-01-09 08:00] VITALS: BP 118/73
--- NOTE | 2021-01-09 08:05 | NUR ---
F/u 01/09: Pt continues w/ adequate PO intake, avg 91% x 9 meals, current diet tolerated. LBM 01/07, no N/V/D reported. Pt compliant w/ meds. No nutrition intervention at this time. Will continue to monitor. Rec: 1. continue regular diet 2. routine bowel care 3. weekly wts Addendum: 01/09/21 at [address] Amended: Links added.
[2021-01-09] MEDS: divalproex sodium 500mg tablet.DR PO SCH ×2 (08:21→19:37)
[2021-01-09] MEDS: haloperidol 5mg tablet PO SCH ×2 (08:21→19:37)
[2021-01-09] MEDS: nicotine 7mg patch - 24hr TD SCH (08:21)
--- NOTE | 2021-01-09 13:52 | NUR ---
Nursing Progress Note: Legal hold: [facility] Client on involuntary status for GD Report received from Jocelynn Manriquez RN with use of SBAR Why are they here: In December of 2019 pt placed at [place], incompetent to stand trial. He had a felony charge of 2nd degree robbery. Pt was given the [facility] and [place] psychologist determined significant cognitive impairment and he was sent back to [facility]. Pt was released from [facility] to attend his conservatorship hearing. The decision was made to [facility] conserve him and he was then brought to [facility]. Assessment What has happened this shift: Again, pt slept through breakfast and morning medication pass. He was given his medicine when he got up for breakfast. Pt slept most of this shift. He is compliant with treatment. S/I, H/I: Denies A/VH: Denies Sleep: Slept most of this shift ADL's: Independent Group attendance: N/A Were meds taken: Yes Any med S/E: None Mental Status Exam Appearance: Young male with short dark hair wearing jeans and a t-shirt. Eye contact: Good Behavior: Guarded, depressed Speech: pressured Mood: Guarded Affect: Flat Thought process: Linear Thought Content: Upset over conservatorship Cognition: A&O x4 Insight: Poor Judgment: Poor Interventions PRN's used: N/A Therapeutic interventions: Provided 1:1 am assessment with therapeutic communication and active listening, medication administration/education/monitoring, encouraged personal hygiene and up for meals and snacks, q 15min safety checks. Restraints/seclusion/emergency medication: N/A Justification of Continued Inpatient Treatment: Per Dr. Mckinley, pt. requires a safe and supportive environment, medication adjustments, and interruption of current crisis. We will continue to build a rapport and relationship with the patient but at this time he is very uncooperative. Addendum: 01/09/21 at 1547 by Mariam Perera RN Pt came up and asked for an Ativan with a smile on his face. He then said, "my ribs keep growing, I think I should get an x-ray on back." He had his hands on the front of his ribs. This nurse asked him if he had any pain. He smiles and responded, "no, not at all they have been growing inward."
[2021-01-09] MEDS: LORazepam 1 MG tablet PO PRN (15:44)
[2021-01-09] MEDS: clozapine 25mg tablet PO SCH (19:36)
[2021-01-09] MEDS: clozapine 100mg tablet PO SCH (19:36)
[2021-01-09] MEDS: NICOTINE POLACRILEX 2 MG LOZENGE BC PRN (19:37)
[2021-01-09 20:16] VITALS: BP 124/93
--- NOTE | 2021-01-09 23:56 | NUR ---
Nursing Progress Note: Legal hold: LPS Client on involuntary status for GD Report received from MEGHAN Ramos with use of SBAR Why are they here: In December of 2019 pt placed at [place], incompetent to stand trial. He had a felony charge of 2nd degree robbery. Pt was given the [facility] and [place] psychologist determined significant cognitive impairment and he was sent back to [facility]. Pt was released from [facility] to attend his conservatorship hearing. The decision was made to LPS conserve him and he was then brought to [facility]. Assessment What has happened this shift: Pt up pacing in halls. Appears to be responding to internal stimuli but denies A/V/H. Pt yells out about how to save the ocean. He has some obsession about saving the ocean. Talks about conservatorship, remembers why he was admitted here. Pt agitated but too soon for [facility]N [facility]. Talked to pt about taking HS meds early to help him calm down. At first pt said he was not going to take any meds they make it hard for him to get up in the morning. But he was persuaded and took his meds about 19:30. Pt continued to pace in halls and occasionally yell out. Declined Trazodone for sleep. Did go to sleep and is sleeping at this time. S/I, H/I: Denies A/VH: Denies Sleep: asleep at this time ADL's: Independent Group attendance: N/A Were meds taken: Yes Any med S/E: None Mental Status Exam Appearance: Young male with short dark hair wearing jeans and a t-shirt. Eye contact: Good Behavior: agitated Speech: pressured Mood: Guarded Affect: Flat Thought process: Linear Thought Content: Upset over conservatorship Cognition: A&O x4 Insight: Poor Judgment: Poor Interventions PRN's used: N/A Therapeutic interventions: Provided 1:1 am assessment with therapeutic communication and active listening, medication administration/education/monitoring, encouraged personal hygiene and up for meals and snacks, q 15min safety checks. Restraints/seclusion/emergency medication: N/A Justification of Continued Inpatient Treatment: Per Dr. Mckinley, pt. requires a safe and supportive environment, medication adjustments, and interruption of current crisis. We will continue to build a rapport and relationship with the patient but at this time he is very uncooperative.
[2021-01-10 07:41] VITALS: BP 129/75
[2021-01-10] MEDS: haloperidol 5mg tablet PO SCH ×2 (08:01→20:35)
[2021-01-10] MEDS: divalproex sodium 500mg tablet.DR PO SCH ×2 (08:02→20:36)
[2021-01-10] MEDS: nicotine 7mg patch - 24hr TD SCH (09:28)
[2021-01-10] MEDS: LORazepam 1 MG tablet PO PRN (09:31)
--- NOTE | 2021-01-10 14:27 | NUR ---
Pt. attended group today. Todays group was about the difference between Growth Mindset vs. Fixed Mindset. We learned about the differences and then discussed what aspect of developing a growth mindset they wanted to work on. Pt comes in and out of group, he doesn't track with what is going on. At one point he came in and started asking what time was lunch, he wears his headset while listening to music. Another time he came in and sat down and started laughing to himself. Cecile De Leon LCSW
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
[2021-01-10 19:58] VITALS: BP 109/66
[2021-01-10] MEDS: clozapine 100mg tablet PO SCH (20:35)
[2021-01-10] MEDS: clozapine 25mg tablet PO SCH (20:35)
--- NOTE | 2021-01-10 21:01 | NUR ---
Nursing Progress Note: Legal hold: [facility] Client on involuntary status for GD Report received from Jocelynn Manriquez RN with use of SBAR Why are they here: In December of 2019 pt placed at [place], incompetent to stand trial. He had a felony charge of 2nd degree robbery. Pt was given the [facility] and [place] psychologist determined significant cognitive impairment and he was sent back to [facility]. Pt was released from [facility] to attend his conservatorship hearing. The decision was made to LPS conserve him and he was then brought to [facility]. Assessment What has happened this shift: Pt was walking in the banuelos at change of shift. Pt states his day was good and c/o drooling a lot. Pt states he is here until he wins his hearing. Otherwise pt reports having a good day and just wants to go to sleep. S/I, H/I: Denies A/VH: Denies Sleep: see sleep hours ADL's: Independent Group attendance: N/A Were meds taken: Yes Any med S/E: None Mental Status Exam Appearance: Young male with short dark hair wearing jeans and a t-shirt. Eye contact: Good Behavior: Guarded, depressed Speech: pressured Mood: Guarded Affect: Flat Thought process: Linear Thought Content: Upset over conservatorship Cognition: A&O x4 Insight: Poor Judgment: Poor Interventions PRN's used: N/A Therapeutic interventions: Provided 1:1 am assessment with therapeutic communication and active listening, medication administration/education/monitoring, encouraged personal hygiene and up for meals and snacks, q 15min safety checks.
[2021-01-11 07:36] VITALS: BP 121/62
[2021-01-11] MEDS: nicotine 7mg patch - 24hr TD SCH (08:00)
[2021-01-11] MEDS: haloperidol 5mg tablet PO SCH ×2 (08:10→20:07)
[2021-01-11] MEDS: divalproex sodium 500mg tablet.DR PO SCH ×2 (08:10→20:07)
[2021-01-11 14:25] LABS: BASOPHILS % (AUTO) 0.5 % (0-1); EOSINOPHILS # (AUTO) 0.2 X10'3 (0-0.9); EOSINOPHILS % (AUTO) 4.1 % (0-6); HEMATOCRIT 43.1 % (42.0-52.0); HEMOGLOBIN 14.6 g/dl (14.0-17.9); LYMPHOCYTES % (AUTO) 24.6 % (21-51); MEAN CORPUSCULAR HEMOGLOBIN 31.7 PG (27.0-31.0); MEAN CORPUSCULAR VOLUME 93.5 FL (78-98); MEAN PLATELET VOLUME 7.8 FL (7.4-10.4); MONOCYTES # (AUTO) 0.5 X10'3 (0-0.9); NEUTROPHILS # (AUTO) 2.4 X10'3 (1.8-7.7); NEUTROPHILS % (AUTO) 57.8 % (42-75); PLATELET COUNT 165 X10'3 (140-440); RED BLOOD COUNT 4.61 X10'6 (4.70-6.10); RED CELL DISTRIBUTION WIDTH 13.4 % (11.5-14.5); WHITE BLOOD COUNT 4.2 X10'3 (4.5-11.0)
--- NOTE | 2021-01-11 15:02 | NUR ---
Nursing Progress Note: MARK Legal hold: [facility] Client on involuntary status for GD Report received from EMILIANO Hunter with use of SBAR Why are they here: In December of 2019 pt placed at [place], incompetent to stand trial. He had a felony charge of 2nd degree robbery. Pt was given the [facility] and [place] psychologist determined significant cognitive impairment and he was sent back to [email or web address]. Pt was released from [facility] to attend his conservatorship hearing. The decision was made to [facility] conserve him and he was then brought to [facility]. Assessment What has happened this shift: Received patient sleeping at shift change, no distress noted. Pt attended breakfast then returned to bed. Pt was compliant with medication and care. Pt declined his Nicotine patch. Pt woke up before group, but didnt attend. Noted pt ambulating banuelos listening to headphones, talking to himself or singing. Pt denies A/VH. Pt has been pleasant. Pt randomly stops and stares into the charting room, when spoken to he smiles and continues walking. Pt spent a majority of his day lying in his bed, when publicity writer asked if that is normal for him, he replied yes. No behaviors noted as of this writing. S/I, H/I: Denies both. A/VH: Denies both. Sleep: Slept most of this shift. ADL's: Independent Group attendance: Declined. Were meds taken: Yes. PO medications without issue. Declined Nicotine patch today. Any med S/E: None reported or observed. Mental Status Exam Appearance: Young male, short brown hair, slightly disheveled, dressed in personal attire. Eye contact: Good Behavior: Guarded, bored. Isolated to self, lying in bed. Occasionally up pacing banuelos with headphones. Speech: Soft, normal rate/rhythm, minimal. Mood: Euthymic Affect: Flat Thought process: Linear Thought Content: Getting needs met. Cognition: A&O x4 Insight: Poor Judgment: Poor Interventions PRN's used: None. Therapeutic interventions: Provided 1:1 am assessment with therapeutic communication and active listening, medication administration/education/monitoring, encouraged personal hygiene and up for meals and snacks, encouraged participation on unit, Q15min safety checks. Addendum: 01/11/21 at 1611 by Heidi Yoon RN Pt requested Ativan states his anxiety is a 7/10. Pt unsure of why he is feeling anxious or what triggered it. Administered PRN Ativan 1mg. Will continue to monitor.
[2021-01-11] MEDS: NICOTINE POLACRILEX 2 MG LOZENGE BC PRN (15:18)
[2021-01-11] MEDS: LORazepam 1 MG tablet PO PRN (15:57)
--- NOTE | 2021-01-11 16:18 | NUR ---
Pt awake ambulating the halls singing with the headphones on. Pt is pleasant and friendly.
[2021-01-11] MEDS: clozapine 25mg tablet PO SCH (20:07)
[2021-01-11] MEDS: clozapine 100mg tablet PO SCH (20:07)
[2021-01-11 20:24] VITALS: BP 104/60
--- NOTE | 2021-01-11 23:02 | NUR ---
Nursing Progress Note: MARK Legal hold: [facility] Client on involuntary status for GD Report received from EMILIANO Ramos with use of SBAR Why are they here: In December of 2019 pt placed at [place], incompetent to stand trial. He had a felony charge of 2nd degree robbery. Pt was given the [facility] and [place] psychologist determined significant cognitive impairment and he was sent back to [facility]. Pt was released from [facility] to attend his conservatorship hearing. The decision was made to [facility] conserve him and he was then brought to [facility]. Assessment What has happened this shift: pt was sleeping at change of shift and remained in bed for duration of shift. Reported feeling very tired and wants to sleep. Pt gave brief answers to questions during assessment and kept pulling blankets up to go back to sleep. Pt woke for evening meds and went back to sleep S/I, H/I: Denies both. A/VH: Denies both. Sleep: Slept most of this shift. ADL's: Independent Group attendance: no evening groups Were meds taken: Yes. PO medications without issue. Any med S/E: fatigued Mental Status Exam Appearance: Young male, short brown hair, slightly disheveled, dressed in personal attire. Eye contact: Good Behavior: sleeping in bed Speech: Soft, normal rate/rhythm, minimal. Mood: Euthymic Affect: Flat Thought process: Linear Thought Content: Getting needs met. Cognition: A&O x4 Insight: Poor Judgment: Poor Interventions PRN's used: None. Therapeutic interventions: Provided 1:1 am assessment with therapeutic communication and active listening, medication administration/education/monitoring, encouraged personal hygiene and up for meals and snacks, encouraged participation on unit, Q15min safety checks.
[2021-01-12 08:00] VITALS: BP 103/60
[2021-01-12] MEDS: divalproex sodium 500mg tablet.DR PO SCH ×2 (08:01→20:00)
[2021-01-12] MEDS: nicotine 7mg patch - 24hr TD SCH (08:01)
[2021-01-12] MEDS: haloperidol 5mg tablet PO SCH ×2 (08:01→20:00)
[2021-01-12] MEDS: LORazepam 1 MG tablet PO PRN (12:21)
--- NOTE | 2021-01-12 13:33 | NUR ---
Nursing Progress Note: MARK Legal hold: [facility] Client on involuntary status for GD Report received from EMILIANO Guillen with use of SBAR Why are they here: In December of 2019 pt placed at [place], incompetent to stand trial. He had a felony charge of 2nd degree robbery. Pt was given the [facility] and [place] psychologist determined significant cognitive impairment and he was sent back to [facility]. Pt was released from [facility] to attend his conservatorship hearing. The decision was made to [facility] conserve him and he was then brought to [facility]. Assessment What has happened this shift: Received pt as he was walking the halls, laughing loudly occasionally. pt requested ativan which was given with good effect. pt was later seen resting in his bed, no further complaints of anxiety. S/I, H/I: Denies both. A/VH: Denies both. Sleep: napped off and on ADL's: Independent Group attendance: Declined. Were meds taken: yes Any med S/E: None reported or observed. Mental Status Exam Appearance: Young male, short brown hair, slightly disheveled, dressed in personal attire. Eye contact: Good Behavior: bored, hyper at times. Speech: Soft, normal rate/rhythm, minimal. Mood: Euthymic Affect: Flat Thought process: Linear Thought Content: Getting needs met. Cognition: A&O x4 Insight: Poor Judgment: Poor Interventions PRN's used: None. Therapeutic interventions: Provided 1:1 am assessment with therapeutic communication and active listening, medication administration/education/monitoring, encouraged personal hygiene and up for meals and snacks, encouraged participation on unit, Q15min safety checks.
[2021-01-12 19:32] VITALS: BP 138/81
[2021-01-12] MEDS: clozapine 100mg tablet PO SCH (20:00)
[2021-01-12] MEDS: clozapine 25mg tablet PO SCH (20:00)
--- NOTE | 2021-01-12 23:20 | NUR ---
Nursing Progress Note: MARK Legal hold: [facility] Client on involuntary status for GD Report received from EMILIANO Ramos with use of SBAR Why are they here: In December of 2019 pt placed at [place], incompetent to stand trial. He had a felony charge of 2nd degree robbery. Pt was given the [facility] and [place] psychologist determined significant cognitive impairment and he was sent back to [facility]. Pt was released from [facility] to attend his conservatorship hearing. The decision was made to [facility] conserve him and he was then brought to [facility]. Assessment What has happened this shift:Pt was in bed at change of shift. Pt is pleasant reports feeling good but gives minimal response to questions. Pt is up for snack and asks to have meds so he can sleep. Pt is med compliant seems to be getting along well with roommate. S/I, H/I: Denies both. A/VH: Denies both. Sleep: see sleep hours ADL's: Independent Group attendance: no evening groups Were meds taken: yes Any med S/E: None reported or observed. Mental Status Exam Appearance: Young male, short brown hair, slightly disheveled, dressed in personal attire. Eye contact: Good Behavior: bored, hyper at times. isolates to his room except for snacks. Speech: Soft, normal rate/rhythm, minimal. Mood: Euthymic Affect: Flat Thought process: Linear Thought Content: Getting needs met. Cognition: A&O x4 Insight: Poor Judgment: Poor Interventions PRN's used: None. Therapeutic interventions: Provided 1:1 am assessment with therapeutic communication and active listening, medication administration/education/monitoring, encouraged personal hygiene and up for meals and snacks, encouraged participation on unit, Q15min safety checks.
[2021-01-13 08:00] VITALS: BP 125/85
[2021-01-13] MEDS: haloperidol 5mg tablet PO SCH ×2 (08:12→20:09)
[2021-01-13] MEDS: divalproex sodium 500mg tablet.DR PO SCH ×2 (08:13→20:09)
[2021-01-13] MEDS: nicotine 7mg patch - 24hr TD SCH (08:14)
[2021-01-13] MEDS: LORazepam 1 MG tablet PO PRN (17:01)
--- NOTE | 2021-01-13 17:03 | NUR ---
Nursing Progress Note: Legal hold: [facility] Client on involuntary status for GD Report received from EMILIANO Hunter with use of SBAR Why are they here: In December of 2019 pt placed at [place], incompetent to stand trial. He had a felony charge of 2nd degree robbery. Pt was given the [facility] and [place] psychologist determined significant cognitive impairment and he was sent back to [facility]. Pt was released from [facility] to attend his conservatorship hearing. The decision was made to [facility] conserve him and he was then brought to [facility]. Assessment What has happened this shift: Pt was sleepy this morning. Encouraged him to get up and eat breakfast and he did. Pt was cooperative with medications and unit procedures. Pt denied depression, SI/HI/AH/VH. Pt did c/o increased anxiety and requested a PRN Ativan and 1 mg was given at 1701. Pt paces the unit and listens to radio headphones. Observed pt socializing and fist bumping with select peers. No unsafe behaviors noted. S/I, H/I: Pt denies. A/VH: Pt denies. Sleep: Pt slept 8.5 hours last night per noc shift report, pt napped frequently throughout the day. ADL's: Independent Group attendance: No Were meds taken: Yes Any med S/E: None noted or reported. Mental Status Exam Appearance: Young male, short brown hair, slightly disheveled, dressed in personal attire. Eye contact: Good Behavior: bored, hyper at times. Speech: Soft, normal rate/rhythm, minimal. Mood: Euthymic Affect: Flat Thought process: Linear Thought Content: Getting needs met. Cognition: A&O x4 Insight: Poor Judgment: Poor Interventions PRN's used: None. Therapeutic interventions: Provided 1:1 am assessment with therapeutic communication and active listening, medication administration/education/monitoring, encouraged personal hygiene and up for meals and snacks, encouraged participation on unit, Q15min safety checks. Addendum: 01/15/21 at 1540 by Josefa Palomino RN ([facility]) Justification: Pt is on a TCON he is psychotic and gravely disabled, he is unable to safely function in society,he needs medication adjustment and management, he will need placement in an IMD.
[2021-01-13 20:00] VITALS: BP 139/89
[2021-01-13] MEDS: clozapine 25mg tablet PO SCH (20:09)
[2021-01-13] MEDS: clozapine 100mg tablet PO SCH (20:10)
--- NOTE | 2021-01-14 03:55 | NUR ---
Nursing Progress Note: Arnold Legal hold: [facility] Client on involuntary status for GD Report received from Sherri CUMMINGS with use of SBAR Why are they here: In December of 2019 pt placed at [place], incompetent to stand trial. He had a felony charge of 2nd degree robbery. Pt was given the [facility] and [place] psychologist determined significant cognitive impairment and he was sent back to [facility]. Pt was released from [facility] to attend his conservatorship hearing. The decision was made to [facility] conserve him and he was then brought to [facility]. Assessment What has happened this shift: Pt up and pacing the hallways with headphones on. Pt denied depression, SI/HI/AH/VH, stated his day was good and no complaints. No unsafe behaviors noted. Pt up for snacks and took all HS medications without issue. Pt is polite with this RN and to his peers. S/I, H/I: Pt denies. A/VH: Pt denies. Sleep: ADL's: Independent Group attendance: No Were meds taken: Yes Any med S/E: None noted or reported. Mental Status Exam Appearance: Young male, short brown hair, slightly disheveled, dressed in personal attire. Eye contact: Good Behavior: bored, hyper at times. Speech: Soft, normal rate/rhythm, minimal. Mood: Euthymic Affect: Flat Thought process: Linear Thought Content: Getting needs met. Cognition: A&O x4 Insight: Poor Judgment: Poor Interventions PRN's used: None. Therapeutic interventions: Provided 1:1 am assessment with therapeutic communication and active listening, medication administration/education/monitoring, encouraged personal hygiene and up for meals and snacks, encouraged participation on unit, Q15min safety checks.
[2021-01-14] MEDS: divalproex sodium 500mg tablet.DR PO SCH ×2 (08:15→20:18)
[2021-01-14] MEDS: haloperidol 5mg tablet PO SCH ×2 (08:15→20:18)
[2021-01-14] MEDS: nicotine 7mg patch - 24hr TD SCH (08:19)
[2021-01-14] MEDS: LORazepam 1 MG tablet PO PRN (13:32)
[2021-01-14 15:08] VITALS: BP 148/107
[2021-01-14] MEDS ORDERED: propranolol 10mg tablet PO ONE (15:10)
--- NOTE | 2021-01-14 15:45 | NUR ---
Nursing Progress Note: Legal hold: [facility] Client on involuntary status for GD Report received from Jocelynn Logan RN with use of SBAR Why are they here: In December of 2019 pt placed at [place], incompetent to stand trial. He had a felony charge of 2nd degree robbery. Pt was given the [facility] and [place] psychologist determined significant cognitive impairment and he was sent back to [facility]. Pt was released from [facility] to attend his conservatorship hearing. The decision was made to [facility] conserve him and he was then brought to [facility]. Assessment What has happened this shift: Pt refused VS this morning and initially refused to get up for breakfast until this RN went to his room to give him his scheduled morning meds. Pt then quickly got out of bed said he was going down to eat breakfast and did not take his meds. After breakfast pt returned to bed and put the covers up over his head. Pt did accepted his medications with encouragement but then declined his nicotine patch stating that he wasn't ready for it yet. Reminded pt of the time it was scheduled and due and he did allow it to be applied. Pt asked for an Ativan after lunch for increased anxiety and was given Ativan 1 mg at 1332. Pt appeared to be responding to internal stimuli around 1430. This nurse observed pt stop in the hallway with radio headphones on an loudly ask, "Why are you doing that?! Cause I'm a true threat?!" No one was around him when he did this. Asked pt who he was talking to. He initially did not answer but then stated that he was talking to himself. Asked pt if he was hearing voices. Around 1500 pt asked for something else for anxiety. Pt said that Seroquel works. Reminded pt that he did not have an order for Seroquel and that he was taking both Haldol and Clozaril routinely so it was doubtful the doctor would add another antipsychotic. Pt stated that he didn't like Haldol because it made his feet feel funny...hard to stay still. Observed pt shifting back and forth from foot to foot. Pt did admit to . When asked why he had denied this earlier he replied because he wants to get out of here. Educated pt that we can not effectively adjust his medications to control his symptoms if he is not honest about his symptoms. Notified SANJAY Mckinley of pt's c/o ongoing anxiety as well as AH and possible EPS side effect of akathisia. SANJAY Mckinley stated that he would decrease the pt's Haldol and ordered a one time dose of propranolol 20 mg given at 1511. Other RNs reported that they had heard pt talking to himself about his brother. This RN heard pt say, "talking to my brother" to himself while pacing. S/I, H/I: Pt denies. A/VH: Pt denies. Sleep: Pt slept 6.25 hours last night per noc shift report. ADL's: Independent Group attendance: No groups today. Were meds taken: Yes Any med S/E: restless legs/akathisia Mental Status Exam Appearance: Young male, short brown hair, slightly disheveled, dressed in shorts and a black t-shirt. Eye contact: Good, stares at times. Behavior: Restless, paces listening to radio headphones, talks to himself, minimizes symptoms. Speech: normal rate/rhythm, minimal. Mood: Anxious Affect: Flat, guarded Thought process: Responding to internal stimuli Thought Content: Seroquel works for him, he doesn't like to let us know when experiencing symptoms because he wants out of here. Cognition: A&O x4 Insight: Poor Judgment: Poor Interventions PRN's used: Ativan 1 mg Therapeutic interventions: 1:1 assessment, establishment of rapport,therapeutic conversation, active listening, encouraged pt to participate in unit procedures and activities, medication administration/education/monitoring, encouragement to notify nursing of symptoms and side effects, behavior monitoring and intervention as needed; distraction, redirection, safety checks, limit setting, provided encouragement and positive reinforcement, Q 15 minute safety checks. Addendum: 01/15/21 at 1540 by Josefa Palomino RN ([place]) Justification: Pt is on a TCON he is psychotic and gravely disabled, he is unable to safely function in society,he needs medication adjustment and management, he will need placement in an IMD.
[2021-01-14] MEDS: NICOTINE POLACRILEX 2 MG LOZENGE BC PRN ×2 (16:12→20:43)
--- NOTE | 2021-01-14 17:11 | NUR ---
Pt's Haldol was decreased to 5 mg BID, his Clozaril was increased to 450 mg HS, he has a new order for propranolol 20 mg BID.
[2021-01-14 20:00] VITALS: BP 148/92
[2021-01-14] MEDS: clozapine 25mg tablet PO SCH (20:17)
[2021-01-14] MEDS: propranolol 10mg tablet PO SCH (20:18)
[2021-01-14] MEDS: clozapine 100mg tablet PO SCH (20:18)
[2021-01-14] MEDS: traZODone 50mg tablet PO PRN (21:34)
--- NOTE | 2021-01-15 03:29 | NUR ---
Nursing Progress Note: Arnold Legal hold: [facility] Client on involuntary status for GD Report received from Sherri CUMMINGS with use of SBAR Why are they here: In December of 2019 pt placed at [place], incompetent to stand trial. He had a felony charge of 2nd degree robbery. Pt was given the [facility] and [place] psychologist determined significant cognitive impairment and he was sent back to [facility]. Pt was released from [facility] to attend his conservatorship hearing. The decision was made to LPS conserve him and he was then brought to [facility]. Assessment What has happened this shift: Received pt up and pacing the hallways. PT was friendly and cooperative with care. Pt denies MH symptoms said he had a great day. Pt took all prescribed medication and had a snack. Denies depression and anxiety and had no complaints this shift. S/I, H/I: Pt denies. A/VH: Pt denies. Sleep: ADL's: Independent Group attendance: Were meds taken: Yes Any med S/E: Mental Status Exam Appearance: Young male, short brown hair, slightly disheveled, dressed in shorts and a black t-shirt. Eye contact: Good, stares at times. Behavior: Restless, paces listening to radio headphones, talks to himself. Speech: normal rate/rhythm, minimal. Mood: Euthymic Affect: Flat, guarded Thought process: Linear Thought Content: Getting needs met. Cognition: A&O x4 Insight: Poor Judgment: Poor Interventions PRN's used: Therapeutic interventions: 1:1 assessment, establishment of rapport,therapeutic conversation, active listening, encouraged pt to participate in unit procedures and activities, medication administration/education/monitoring, encouragement to notify nursing of symptoms and side effects, behavior monitoring and intervention as needed; distraction, redirection, safety checks, limit setting, provided encouragement and positive reinforcement, Q 15 minute safety checks.
[2021-01-15 08:00] VITALS: BP 96/51
[2021-01-15] MEDS: propranolol 10mg tablet PO SCH ×2 (08:00→19:53)
[2021-01-15] MEDS: divalproex sodium 500mg tablet.DR PO SCH ×2 (08:10→19:53)
[2021-01-15] MEDS: haloperidol 5mg tablet PO SCH ×2 (08:10→19:53)
[2021-01-15] MEDS: nicotine 7mg patch - 24hr TD SCH (08:14)
[2021-01-15] MEDS: LORazepam 1 MG tablet PO PRN ×2 (11:18→18:55)
[2021-01-15] MEDS: NICOTINE POLACRILEX 2 MG LOZENGE BC PRN (13:54)
--- NOTE | 2021-01-15 14:48 | NUR ---
Nursing Progress Note: Legal hold: [facility] Client on involuntary status for GD Report received from Jocelynn Logan RN with use of SBAR Why are they here: In December of 2019 pt placed at [place], incompetent to stand trial. He had a felony charge of 2nd degree robbery. Pt was given the [facility] and [place] psychologist determined significant cognitive impairment and he was sent back to [facility]. Pt was released from [facility] to attend his conservatorship hearing. The decision was made to LPS conserve him and he was then brought to [facility]. Assessment What has happened this shift: Pt appeared fatigued this morning. Pt eventually got up for breakfast. Pt was cooperative with medications. Held am Clonidine for a low BP of 96/51. Pt woke up and became restless, pacing the hallways with the radio headphones on. Pt socializes with staff and peers. Pt asked for some medicine before lunch. Determined that pt wanted medicine for anxiety. PRN Ativan 1 mg was given at 1118 with good effect. Pt asked to speak to this nurse in private. Went to pt's room to talk. Pt began with stating, "this is metaphorically speaking." Pt went on to say that he is God, he is God and Space..."but I'm not doing good out there in space." "There's this light, it's there on the wall next to you, do you see a light?" Pt was informed that this nurse did not see a light on the wall. Pt went on the say that the light used to be good and protective, "but they flipped it somehow, they flipped it somehow yesterday and now it's not good and it's killing millions of people." Pt stated that he's not sure if the light will go back to being a good light. Asked pt how he knows the light is killing people, pt replied that he just knew then added that it's communicated to him through people. Pt denied AH. Asked pt if he had been speaking to his brother yesterday. Pt replied that he does not have a brother. He is an only child. Pt thanked this RN for listening, "thank you ma'am." He then stated that it helps to have someone listen to him as he doesn't have a lot of people that care about him and it helps to share things. S/I, H/I: Pt denies. A/VH: +VH, denies AH Sleep: Pt slept 6.5 hours last night per noc shift report. ADL's: Independent Group attendance: No groups today. Were meds taken: Yes Any med S/E: Some morning drowsiness. Mental Status Exam Appearance: Young male, short brown hair, slightly disheveled, dressed in shorts and a black t-shirt. Eye contact: Good Behavior: Restless, paces listening to radio headphones, socializes with staff and peers. Speech: Clear, audible. Mood: Anxious Affect: Blunted Thought process: Delusional, ruminative. Thought Content: Concerned about the light he sees that used to be good but has flipped and now is killing people. Cognition: A&O x4 Insight: Fair Judgment: Fair Interventions PRN's used: Ativan 1 mg, nicotine lozenge Therapeutic interventions: 1:1 assessment, establishment of rapport,therapeutic conversation, active listening, encouraged pt to participate in unit procedures and activities, medication administration/education/monitoring, encouragement to notify nursing of symptoms and side effects, behavior monitoring and intervention as needed; distraction, redirection, reality orientation, limit setting, provided encouragement and positive reinforcement, Q 15 minute safety checks. Justification: Pt is on a TCON he is psychotic and gravely disabled, he is unable to safely function in society,he needs medication adjustment and management, he will need placement in an IMD.
[2021-01-15 19:13] VITALS: BP 139/83
[2021-01-15] MEDS: traZODone 50mg tablet PO PRN (19:53)
[2021-01-15] MEDS: clozapine 100mg tablet PO SCH (20:24)
[2021-01-15] MEDS: clozapine 25mg tablet PO SCH (20:24)
--- NOTE | 2021-01-16 05:04 | NUR ---
Nursing Progress Note: Legal hold: TCON Client on involuntary status for GD Report received from EMILIANO Polanco with use of SBAR Why are they here: In December of 2019 pt placed at [place], incompetent to stand trial. He had a felony charge of 2nd degree robbery. Pt was given the [facility] and [place] psychologist determined significant cognitive impairment and he was sent back to [facility]. [facility] to [facility] his [facility]atorship hearing. The decision was made to LPS conserve him and he was then brought to [facility]. Assessment What has happened this shift: Patient observed pacing the unit at the beginning of shift. Pleasant and cooperative but testing boundaries this shift; compliant with medication. PRN Ativan and Trazodone provided per patient request with positive effect. Patient reports he removed his Nicotine patch earlier in the day. He denies SI, HI, A/VH; did not appear to be responding to IS and no delusional thought content expressed this shift. Patient required some redirection when he asked mortgage underwriter several times prior to med pass if he could have his medication. He participated in HS snack prior to bed; observed sleeping and does not appear to be having difficulty. S/I, H/I: Denies A/VH: Denies Sleep: Refer to sleep assessment ADL's: Independent Group attendance: NA Were meds taken: Yes Any med S/E: None observed or reported Mental Status Exam Appearance: Neat, clean and appropriately dressed in personal attire Eye contact: Good Behavior: Pleasant and mostly cooperative, social Speech: Clear, audible Mood: Anxious Affect: Blunted Thought process: Perseverating Thought Content: Medication, meeting needs Cognition: A&O x4 Insight: Fair Judgment: Fair Interventions PRN's used: Ativan and Trazodone Therapeutic interventions: 1:1 assessment, establishment of rapport,therapeutic conversation, active listening, encouraged pt to participate in unit procedures and activities, medication administration/education/monitoring, encouragement to notify nursing of symptoms and side effects, behavior monitoring and intervention as needed; distraction, redirection, reality orientation, limit setting, provided encouragement and positive reinforcement, Q 15 minute safety checks. Justification: Pt is on a TCON he is psychotic and gravely disabled, he is unable to safely function in society,he needs medication adjustment and management, he will need placement in an IMD.
[2021-01-16 07:45] VITALS: BP 110/58
[2021-01-16] MEDS: nicotine 7mg patch - 24hr TD SCH (08:00)
[2021-01-16] MEDS: haloperidol 5mg tablet PO SCH ×2 (08:16→19:49)
[2021-01-16] MEDS: divalproex sodium 500mg tablet.DR PO SCH ×2 (08:17→19:48)
[2021-01-16] MEDS: propranolol 10mg tablet PO SCH ×2 (08:17→19:49)
[2021-01-16] MEDS: NICOTINE POLACRILEX 2 MG LOZENGE BC PRN (13:39)
[2021-01-16] MEDS: LORazepam 1 MG tablet PO PRN (13:39)
--- NOTE | 2021-01-16 18:05 | NUR ---
Nursing Progress Note Legal hold: TCON Client on involuntary status for GD Report received from RN with use of SBAR Why are they here: In December of 2019 pt placed at [place], incompetent to stand trial. He had a felony charge of 2nd degree robbery. Pt was given the [facility] and [place] psychologist determined significant cognitive impairment and he was sent back to [facility]. Pt was released from [facility] to attend his conservatorship hearing. The decision was made to LPS conserve him and he was then brought to [facility]. Assessment What has happened this shift: Pt in bed sleeping w/o distress at the beginning of the shift. Pt cooperative with vitals, but resistive with AM meds, not wanting to be woken again, and stating I already took them. With much explanation and encouragement Pt took AM meds. and am meds. Pt apologized later in the shift for being angry at morning med time. Pt napped in the morning and woke for meals. He received Ativan prn for anxiety in early afternoon. Pt paced halls and requested food and coffee often. Pt difficult to have a linear conversation with as he gets disorganized and is a poor historian. Demanding and intrusive at times, but redirectable. S/I, H/I: Pt denies A/VH: +VH, Pt denies Sleep: Napped in AM ADL's: Independent Group attendance: NA Were meds taken: Yes Any med S/E: Drowsy in AM Mental Status Exam Appearance: Casual Eye contact: Good Behavior: Restless, paces listens to headphones, socializes Speech: Clear, audible. Mood: Anxious Affect: Blunted Thought process: Delusional, ruminates Thought Content: Medication for anxiety, food and coffee Cognition: A&O x4 Insight: Fair Judgment: Fair Interventions PRN's used: Ativan, nicotine lozenge Therapeutic interventions: 1:1 assessment, establishment of rapport, therapeutic conversation, active listening, encouraged pt to participate in unit procedures and activities, medication administration/education/monitoring, encouragement to notify nursing of symptoms and side effects, behavior monitoring and intervention as needed; distraction, redirection, reality orientation, limit setting, provided encouragement and positive reinforcement, Q 15 minute safety checks. Justification: Pt is on a TCON he is psychotic and gravely disabled, he is unable to safely function in society,he needs medication adjustment and management, he will need placement in an IMD.
[2021-01-16 19:37] VITALS: BP 138/87
[2021-01-16] MEDS: clozapine 25mg tablet PO SCH (19:49)
[2021-01-16] MEDS: traZODone 50mg tablet PO PRN (19:49)
[2021-01-16] MEDS: clozapine 100mg tablet PO SCH (19:49)
--- NOTE | 2021-01-17 03:57 | NUR ---
Nursing Progress Note: Legal hold: TCON Client on involuntary status for GD Report received from EMILIANO Garcia with use of SBAR Why are they here: In December of 2019 pt placed at [place], incompetent to stand trial. He had a felony charge of 2nd degree robbery. Pt was given the [facility] and [place] psychologist determined significant cognitive impairment and he was sent back to [facility]. Pt was released from [facility] to attend his conservatorship hearing. The decision was made to LPS conserve him and he was then brought to [facility]. Assessment What has happened this shift: Patient pacing the unit and social with staff at the beginning of shift. Pleasant and cooperative with care; compliant with medication. PRN Trazodone and Ativan provided with positive effect. Patient denies SI, HI, A/VH this shift; possible IS observed but unclear as he had headset on at the time. No delusional thought content was expressed this shift. Patient continues to request medications early but was easily directed this shift. He participated in HS snack prior to bed; observed sleeping and does not appear to be having difficulty. S/I, H/I: Denies A/VH: Denies Sleep: Refer to sleep assessment ADL's: Independent Group attendance: NA Were meds taken: Yes Any med S/E: None observed or reported Mental Status Exam Appearance: Neat, clean and appropriately dressed in personal attire Eye contact: Good Behavior: Pleasant and mostly cooperative, social Speech: Clear, audible Mood: Anxious Affect: Blunted Thought process: Linear with some perseveration Thought Content: Medication, meeting needs Cognition: A&O x4 Insight: Fair Judgment: Fair Interventions PRN's used: Ativan and Trazodone Therapeutic interventions: 1:1 assessment, establishment of rapport,therapeutic conversation, active listening, encouraged pt to participate in unit procedures and activities, medication administration/education/monitoring, encouragement to notify nursing of symptoms and side effects, behavior monitoring and intervention as needed; distraction, redirection, reality orientation, limit setting, provided encouragement and positive reinforcement, Q 15 minute safety checks. Justification: Pt is on a TCON he is psychotic and gravely disabled, he is unable to safely function in society,he needs medication adjustment and management, he will need placement in an IMD.
[2021-01-17 07:58] VITALS: BP 108/66
[2021-01-17] MEDS: nicotine 7mg patch - 24hr TD SCH (08:00)
[2021-01-17] MEDS: propranolol 10mg tablet PO SCH ×2 (08:58→20:00)
[2021-01-17] MEDS: haloperidol 5mg tablet PO SCH ×2 (08:58→20:01)
[2021-01-17] MEDS: divalproex sodium 500mg tablet.DR PO SCH ×2 (08:58→20:00)
[2021-01-17] MEDS: LORazepam 1 MG tablet PO PRN (11:51)
--- NOTE | 2021-01-17 16:24 | NUR ---
F/u 01/17: Pt PO 75-100% avg regular diet meeting needs. LBM 01/16 per EMR. No nutrition intervention at this time. Will continue to monitor. Rec: 1. continue regular diet 2. routine bowel care 3. weekly wts Addendum: 01/17/21 at [address] Amended: Links added.
[2021-01-17] MEDS: NICOTINE POLACRILEX 2 MG LOZENGE BC PRN (17:29)
--- NOTE | 2021-01-17 17:53 | NUR ---
Nursing Progress Note: Legal hold: LPS Client on involuntary status for GD Report received from Fabiola CUMMINGS with use of SBAR Why are they here: Pt was released from [facility] to attend his conservatorship hearing. Decision was made to LPS conserve him and he was then brought to [facility]. Pt was showered and skin check completed along with MRSA swab. Pt overall cooperative, but also restless and wanted to sleep. Pt belongings inventoried and pt oriented to unit. Pt tolerated a moderate level of questions before falling asleep. Pt appears to have been taking Clozaril, Haldol and Depakote in long term. Pt tolerated assessments well and reports being very hungry. Pt appears anxious and guarded yet cooperative. Assessment What has happened this shift: RN received pt. asleep in bed at start of shift. Pt. slept until lunch time. After lunch pt. observed pacing halls and listening to headphones. Pt. c/o anxiety and requesting Ativan. Pt. receive Ativan 1mg po with moderate effect. Pt. asking about his court hearing coming up. Pt. asking staff to pace the halls with him and socialize. Pt. is hopeful that he can go live with his uncle. Pt. continues to talk about delusions regarding friends in space. Pt. states, What about these mother !? They say they have my back but I dont know? Those guys in space! Is everything alright in space? Pt. talking very loudly and has to be told to lower his volume. Pt. asks for multiple drinks throughout the day. S/I, H/I: Denies A/VH: Denies, however, pt. appears to be responding to internal stimuli. Sleep: Pt. slept 8.25 hrs on NOC shift and napped most of the AM. ADL's: Independent with prompting. Group attendance: NA Were meds taken: Yes Any med S/E: Denies Mental Status Exam Appearance: Disheveled, wearing the same outfit multiple days in a row. Eye contact: Good Behavior: Cooperative, pacing the halls and listening to headphones. Speech: Clear but minimal Mood: Anxious Affect: Flat Thought process: Perseverative. Thought Content: Concerned about upcoming court date. Cognition: A&O x4 Insight: Poor Judgment: Poor Interventions PRN's used: Ativan 1mg po x1 Therapeutic interventions: Ensured contract for safety, 1:1 assessment, therapeutic communication with active listening, maintained a safe and supportive environment, medication administration/education/monitoring, maintained Q 15 minute safety checks, limit setting, distraction, and redirection. Restraints/seclusion/emergency medication: N/A Justification of Continued Inpatient Treatment: Per Dr. Mckinley, pt. requires a safe and supportive environment, medication adjustments, and interruption of current crisis.
[2021-01-17 19:27] VITALS: BP 123/83
[2021-01-17] MEDS: clozapine 100mg tablet PO SCH (20:00)
[2021-01-17] MEDS: clozapine 25mg tablet PO SCH (20:00)
[2021-01-17] MEDS: traZODone 50mg tablet PO PRN (20:00)
--- NOTE | 2021-01-18 04:37 | NUR ---
Nursing Progress Note: Legal hold: TCON Client on involuntary status for GD Report received from EMILIANO Polanco with use of SBAR Why are they here: In December of 2019 pt placed at [place], incompetent to stand trial. He had a felony charge of 2nd degree robbery. Pt was given the [facility] and [place] psychologist determined significant cognitive impairment and he was sent back to [facility]. Pt was released from [facility] to attend his conservatorship hearing. The decision was made to LPS conserve him and he was then brought to [facility]. Assessment What has happened this shift: Patient social on the unit at the beginning of shift. Pleasant and cooperative with care; compliant with medication; PRN Ativan and Trazodone provided with positive effect. Patient denies SI, HI, A/VH; observed responding to IS. Patient was overheard talking on the phone about having "family on [place]" getting "legit wired on coffee;" shortly after a peer reported that he was seeking medication from peers to "feel high." During med pass patient was not observed approaching peers; he got HS snack and quickly retired to bed. Patient observed sleeping and does not appear to be having difficulty. S/I, H/I: Denies A/VH: Responding to IS Sleep: Refer to sleep assessment ADL's: Independent Group attendance: NA Were meds taken: Yes Any med S/E: None observed or reported Mental Status Exam Appearance: Neat, clean and appropriately dressed in personal attire Eye contact: Good Behavior: Pleasant and mostly cooperative, social Speech: Clear, audible Mood: Anxious Affect: Blunted Thought process: Linear with some perseveration Thought Content: Medication, meeting needs Cognition: A&O x4 Insight: Fair Judgment: Fair Interventions PRN's used: Ativan and Trazodone Therapeutic interventions: 1:1 assessment, establishment of rapport,therapeutic conversation, active listening, encouraged pt to participate in unit procedures and activities, medication administration/education/monitoring, encouragement to notify nursing of symptoms and side effects, behavior monitoring and intervention as needed; distraction, redirection, reality orientation, limit setting, provided encouragement and positive reinforcement, Q 15 minute safety checks. Justification: Pt is on a TCON he is psychotic and gravely disabled, he is unable to safely function in society,he needs medication adjustment and management, he will need placement in an IMD.
[2021-01-18 08:00] VITALS: BP 98/68
[2021-01-18] MEDS: haloperidol 5mg tablet PO SCH ×2 (08:47→20:04)
[2021-01-18] MEDS: nicotine 7mg patch - 24hr TD SCH (08:48)
[2021-01-18] MEDS: divalproex sodium 500mg tablet.DR PO SCH ×2 (08:48→20:04)
[2021-01-18] MEDS: propranolol 10mg tablet PO SCH ×2 (09:49→20:04)
[2021-01-18] MEDS: LORazepam 1 MG tablet PO PRN (15:52)
[2021-01-18] MEDS: NICOTINE POLACRILEX 2 MG LOZENGE BC PRN (16:09)
--- NOTE | 2021-01-18 16:26 | NUR ---
[facility] Nursing Progress Note: Legal hold: LPS Client on involuntary status for GD Report received from Fabiola CUMMINGS with use of SBAR Why are they here: Pt was released from [facility] to attend his conservatorship hearing. Decision was made to LPS conserve him and he was then brought to [facility]. Pt was showered and skin check completed along with MRSA swab. Pt overall cooperative, but also restless and wanted to sleep. Pt belongings inventoried and pt oriented to unit. Pt tolerated a moderate level of questions before falling asleep. Pt appears to have been taking Clozaril, Haldol and Depakote in long term. Pt tolerated assessments well and reports being very hungry. Pt appears anxious and guarded yet cooperative. Assessment What has happened this shift: RN received pt. asleep in bed at start of shift. Pt.s BP medication initially held for low bp, but when reassessed at 0900 was 120/70 and BP meds given. Pt. slept until lunch time. After lunch pt. observed pacing halls and listening to headphones. Pt. asking about his court date that was scheduled for today, pt. informed that court date has been postponed until January 25, pt. handled news well. In afternoon pt. reported increased anxiety and received Ativan 1mg po with moderate effect. S/I, H/I: Denies A/VH: Denies Sleep: Pt. slept 7.5 hrs on NOC shift and napped most of the AM. ADL's: Independent with prompting. Group attendance: NA Were meds taken: Yes Any med S/E: Denies Mental Status Exam Appearance: Disheveled, wearing the same outfit multiple days in a row. Eye contact: Good Behavior: Cooperative, pacing the halls, and listening to headphones. Speech: WNL Mood: Anxious Affect: Flat Thought process: Perseverative. Thought Content: Concerned about upcoming court date. Cognition: A&O x4 Insight: Poor Judgment: Poor Interventions PRN's used: Ativan 1mg po x1 Therapeutic interventions: Ensured contract for safety, 1:1 assessment, therapeutic communication with active listening, maintained a safe and supportive environment, medication administration/education/monitoring, maintained Q 15 minute safety checks, limit setting, distraction, and redirection. Restraints/seclusion/emergency medication: N/A Justification of Continued Inpatient Treatment: Per Dr. Mckinley, pt. requires a safe and supportive environment, medication adjustments, and interruption of current crisis.
[2021-01-18 19:36] VITALS: BP 114/78
[2021-01-18] MEDS: traZODone 50mg tablet PO PRN (20:04)
[2021-01-18] MEDS: clozapine 100mg tablet PO SCH (20:04)
[2021-01-18] MEDS: clozapine 25mg tablet PO SCH (20:04)
--- NOTE | 2021-01-19 00:39 | NUR ---
Nursing Progress Note: Legal hold: TCON Client on involuntary status for GD Report received from EMILIANO Polanco with use of SBAR Why are they here: In December of 2019 pt placed at [place], incompetent to stand trial. He had a felony charge of 2nd degree robbery. Pt was given the [facility] and [place] psychologist determined significant cognitive impairment and he was sent back to [facility]. Pt was released from [facility] to attend his conservatorship hearing. The decision was made to LPS conserve him and he was then brought to [facility]. Assessment What has happened this shift: Patient walking on the unit with headphones on at the beginning of shift. Pleasant and cooperative with care; compliant with care with medication. PRN Ativan and Trazodone provided with positive effect. Patient denies SI, HI, A/VH; does not appear to be responding to IS and no delusional thought content expressed. Patient participated in HS snack and social with peers prior to bed; observed sleeping and does not appear to be having difficulty. S/I, H/I: Denies A/VH: Denies Sleep: Refer to sleep assessment ADL's: Independent Group attendance: NA Were meds taken: Yes Any med S/E: None observed or reported Mental Status Exam Appearance: Neat, clean and appropriately dressed in personal attire Eye contact: Good Behavior: Pleasant and mostly cooperative, social Speech: Clear, audible Mood: Anxious, euthymic Affect: Animated Thought process: Linear Thought Content: Meeting needs Cognition: A&O x4 Insight: Fair Judgment: Fair Interventions PRN's used: Ativan and Trazodone Therapeutic interventions: 1:1 assessment, establishment of rapport,therapeutic conversation, active listening, encouraged pt to participate in unit procedures and activities, medication administration/education/monitoring, encouragement to notify nursing of symptoms and side effects, behavior monitoring and intervention as needed; distraction, redirection, reality orientation, limit setting, provided encouragement and positive reinforcement, Q 15 minute safety checks. Justification: Pt is on a TCON he is psychotic and gravely disabled, he is unable to safely function in society,he needs medication adjustment and management, he will need placement in an IMD.
[2021-01-19 07:15] VITALS: BP 109/60
[2021-01-19] MEDS: nicotine 7mg patch - 24hr TD SCH (08:00)
[2021-01-19] MEDS: haloperidol 5mg tablet PO SCH ×2 (08:01→20:03)
[2021-01-19] MEDS: divalproex sodium 500mg tablet.DR PO SCH ×2 (08:01→20:04)
[2021-01-19] MEDS: propranolol 10mg tablet PO SCH ×2 (08:01→20:03)
--- NOTE | 2021-01-19 13:58 | NUR ---
Nursing Progress Note: Legal hold: TCON Client on involuntary status for GD Report received from EMILIANO Hunter with use of SBAR Why are they here: In December of 2019 pt placed at [place], incompetent to stand trial. He had a felony charge of 2nd degree robbery. Pt was given the [facility] and [place] psychologist determined significant cognitive impairment and he was sent back to [place]. Pt was released from [facility] to attend his conservatorship hearing. The decision was made to LPS conserve him and he was then brought to [facility]. Assessment What has happened this shift: Patient sleeping in bed at the beginning of shift. Pleasant and cooperative with care; compliant with medication. Patient ate meals in the group room and quickly returned to bed after. Patient denies SI, HI, A/VH; does not appear to be responding to IS and no delusional thought content expressed. S/I, H/I: Denies A/VH: Denies ADL's: Independent Group attendance: NA Were meds taken: Yes Any med S/E: None observed or reported Mental Status Exam Appearance: Neat, clean and appropriately dressed in personal attire Eye contact: Good Behavior: Pleasant and cooperative, sleeping, social with roommate Speech: Clear, audible Mood: Tired Affect: Congruent to mood Thought process: Linear Thought Content: Meeting needs Cognition: A&O x4 Insight: Fair Judgment: Fair Interventions PRN's used: None Therapeutic interventions: 1:1 assessment, establishment of rapport,therapeutic conversation, active listening, encouraged pt to participate in unit procedures and activities, medication administration/education/monitoring, encouragement to notify nursing of symptoms and side effects, behavior monitoring and intervention as needed; distraction, redirection, reality orientation, limit setting, provided encouragement and positive reinforcement, Q 15 minute safety checks. Justification: Pt is on a TCON he is psychotic and gravely disabled, he is unable to safely function in society,he needs medication adjustment and management, he will need placement in an IMD.
[2021-01-19] MEDS: LORazepam 1 MG tablet PO PRN (15:58)
[2021-01-19] MEDS: NICOTINE POLACRILEX 2 MG LOZENGE BC PRN (16:34)
[2021-01-19] MEDS: clozapine 25mg tablet PO SCH (20:04)
[2021-01-19] MEDS: clozapine 100mg tablet PO SCH (20:04)
[2021-01-19] MEDS: traZODone 50mg tablet PO PRN ×2 (20:04→20:47)
[2021-01-19 20:27] VITALS: BP 132/86
--- NOTE | 2021-01-19 23:54 | NUR ---
Nursing Progress Note: Legal hold: TCON Client on involuntary status for GD Report received from EMILIANO Garcia with use of SBAR Why are they here: In December of 2019 pt placed at [place], incompetent to stand trial. He had a felony charge of 2nd degree robbery. Pt was given the [facility] and [place] psychologist determined significant cognitive impairment and he was sent back to [facility]. Pt was [facility] from [facility] to attend his conservatorship hearing. The decision was made to LPS conserve him and he was then brought to [facility]. Assessment What has happened this shift: Patient walking in the halls at the beginning of shift. Pleasant and cooperative with care; compliant with medication. Asked for all night medications as soon as possible and received a repeat trazodone dosage before pt was able to sleep. Pt is isolative to self this evening and seen listening to headphones. Polite with staff interactions. Patient ate meal and snack in the group room and went to room to sleep afterwards. Patient denies SI/SH/HI/AVH and does not appear to be responding to IS and no delusional thought content expressed. S/I, H/I: Denies A/VH: Denies ADL's: Independent Group attendance: NA Were meds taken: Yes Any med S/E: None observed or reported Mental Status Exam Appearance: Neat, clean and appropriately dressed in personal attire Eye contact: Good Behavior: Pleasant and cooperative, sleeping, Speech: Clear, audible Mood: Tired Affect: Congruent to mood, anxious Thought process: Linear Thought Content: Meeting needs Cognition: A&O x4 Insight: Fair Judgment: Fair Interventions PRN's used: None Therapeutic interventions: 1:1 assessment, establishment of rapport,therapeutic conversation, active listening, encouraged pt to participate in unit procedures and activities, medication administration/education/monitoring, encouragement to notify nursing of symptoms and side effects, behavior monitoring and intervention as needed; distraction, redirection, reality orientation, limit setting, provided encouragement and positive reinforcement, Q 15 minute safety checks. Justification: Pt is on a TCON he is psychotic and gravely disabled, he is unable to safely function in society,he needs medication adjustment and management, he will need placement in an IMD.
[2021-01-20 07:28] VITALS: BP 86/51
[2021-01-20] MEDS: nicotine 7mg patch - 24hr TD SCH (08:00)
[2021-01-20] MEDS: propranolol 10mg tablet PO SCH ×2 (08:00→20:17)
[2021-01-20] MEDS: haloperidol 5mg tablet PO SCH ×2 (08:22→20:17)
[2021-01-20] MEDS: divalproex sodium 500mg tablet.DR PO SCH ×2 (08:22→20:17)
[2021-01-20] MEDS: NICOTINE POLACRILEX 2 MG LOZENGE BC PRN (14:00)
--- NOTE | 2021-01-20 16:10 | NUR ---
Nursing Progress Note Legal hold: TCON Client on involuntary status for GD Report received from RN with use of SBAR Why are they here: In December of 2019 pt placed at [place], incompetent to stand trial. He had a felony charge of 2nd degree robbery. Pt was given the [facility] and [place] psychologist determined significant cognitive impairment and he was sent back to [facility]. Pt was released from [facility] to attend his conservatorship hearing. The decision was made to LPS conserve him and he was then brought to [facility]. Assessment What has happened this shift: Pt in bed sleeping w/o distress at the beginning of the shift. Pt cooperative with vitals and AM meds. Pt slept through breakfast and had a snack in mid morning. Pt lethargic at times. Pt gets needs met and denies A/VH. Pt watched TV and remained isolative throughout the day. Attempts made to have conversation with Pt, ending when he got up and walked back to his room. S/I, H/I: Pt denies A/VH: Pt denies Sleep: Napped in AM ADL's: Independent Group attendance: NA Were meds taken: Yes Any med S/E: Drowsy in AM Mental Status Exam Appearance: Casual Eye contact: Good Behavior: Tired, isolative Speech: Clear, audible Mood: Anxious Affect: Blunted Thought process: Delusional, ruminates Thought Content: What is on TV, getting food and coffee Cognition: A&O x4 Insight: Fair Judgment: Fair Interventions PRN's used: Therapeutic interventions: 1:1 assessment, establishment of rapport, therapeutic conversation, active listening, encouraged pt to participate in unit procedures and activities, medication administration/education/monitoring, encouragement to notify nursing of symptoms and side effects, behavior monitoring and intervention as needed; distraction, redirection, reality orientation, limit setting, provided encouragement and positive reinforcement, Q 15 minute safety checks. Justification: Pt is on a TCON he is psychotic and gravely disabled, he is unable to safely function in society, he needs medication adjustment and management, he will need placement in an IMD.
[2021-01-20] MEDS: LORazepam 1 MG tablet PO PRN (16:52)
[2021-01-20 19:00] VITALS: BP 103/73
[2021-01-20] MEDS: traZODone 50mg tablet PO PRN (20:16)
[2021-01-20] MEDS: clozapine 100mg tablet PO SCH (20:16)
[2021-01-20] MEDS: clozapine 25mg tablet PO SCH (20:16)
--- NOTE | 2021-01-21 03:34 | NUR ---
Nursing Progress Note Legal hold: TCON Client on involuntary status for GD Report received from RN with use of SBAR Why are they here: In December of 2019 pt placed at [place], incompetent to stand trial. He had a felony charge of 2nd degree robbery. Pt was given the [facility] and [place] psychologist determined significant cognitive impairment and he was sent back to [facility]. Pt was released from Longterm to attend his conservatorship hearing. The decision was made to LPS conserve him and he was then brought to [facility]. Assessment What has happened this shift: Following shift change this patient was observed socializing with other patients and ambulating the unit. The patient approaches this process description writer and expresses concerns about an SABAS card he was given following release from custodial. The patient was advised that it was not noted on inventory. The patient then rambled about many other concerns. When the patient was advised it would be just a few minutes and he could have this writers undivided attention, he continued with his intrusive behavior. This process description writer mad the patient his first in the med pass he looked happy. 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 He then describes wanting to go home and live with his uncle. The patient denies S/I, H/I, or any hallucinations. He requested and was given Trazadone for sleep. The patients outlook improved with interview. He retired to his room to sleep. Patient was medication compliant and overall cooperative. S/I, H/I: Denies. A/VH: Denies. Sleep: Will tally at 0500 hours. ADL's: Independent. Group attendance: None on substation engineer/. Were meds taken: Yes. Any med S/E: none noted. Mental Status Exam Appearance: Clean and neat. Eye contact: Good. Behavior: Somewhat intrusive. Speech: WNL. Mood: Anxious, calmed after interview. Affect: Flat. Thought process: Delusional. Thought Content: Meeting one's needs, going to live with his Uncle. Cognition: A&O x4. Insight: Fair. Judgment: Fair. Interventions PRN's used: Trazadone. Therapeutic interventions: 1:1 assessment, establishment of rapport, therapeutic conversation, active listening, encouraged pt to participate in unit procedures and activities, medication administration/education/monitoring, encouragement to notify nursing of symptoms and side effects, behavior monitoring and intervention as needed; distraction, redirection, reality orientation, limit setting, provided encouragement and positive reinforcement, Q 15 minute safety checks. Justification: Pt is on a TCON he is psychotic and gravely disabled, he is unable to safely function in society, he needs medication adjustment and management, he will need placement in an IMD.
[2021-01-21] MEDS: propranolol 10mg tablet PO SCH ×2 (08:24→20:09)
[2021-01-21] MEDS: divalproex sodium 500mg tablet.DR PO SCH ×2 (08:25→20:09)
[2021-01-21] MEDS: haloperidol 5mg tablet PO SCH ×2 (08:25→20:08)
[2021-01-21] MEDS: nicotine 7mg patch - 24hr TD SCH (08:26)
[2021-01-21 09:18] VITALS: BP 102/53
[2021-01-21] MEDS: LORazepam 1 MG tablet PO PRN ×2 (13:04→20:14)
--- NOTE | 2021-01-21 18:15 | NUR ---
Nursing Progress Note: Arnold Schroeder Legal hold: TCON, involuntary status for GD Report received from Jocelynn Manriquez RN with use of SBAR Why are they here: In December of 2019 pt placed at [place], incompetent to stand trial. He had a felony charge of 2nd degree robbery. Pt was given the [facility] and [place] psychologist determined significant cognitive impairment and he was sent back to [facility]. Pt was released from [facility] to attend his conservatorship hearing. The decision was made to LPS conserve him and he was then brought to [facility]. Assessment What has happened this shift: Patient noted sleeping in bed at shift change. He was up and participated for breakfast in the community room. Shortly after, retreating back to his room to sleep. Patient refused 1:1 physical assessment. When asked if this marketing underwriter could listen to patients heart/ lungs/ bowels, patient stated, no. Pt educated on importance of assessment and continued to decline. He responds in short, thoughtless responses. Only responds when asked direct questions or asking for food/ drinks. Patient noted wondering through the unit listening to music on his headphones throughout the day. He took two short naps between meals. Pt appears to be somewhat intrusive, asking for things in a very direct manner and perseverating on the same question. Pt denies SI/HI, AH or VH. Does not appear to be responding to internal stimuli. He is compliant with medications. Pt continues to perseverate on discharging home and living with his uncle again. He joined in the community room for all meals and was noted socializing with his roommate periodically throughout the day. S/I, H/I: Denies A/VH: Denies Sleep: Pt slept 6 hours last night per NOC shift. Two short naps throughout the day. ADL's: Independent. Group attendance: No Were meds taken: Yes Any med S/E: None noted or observed Mental Status Exam Appearance: Clean, groomed, wearing green unit scrubs Eye contact: Good Behavior: Somewhat intrusive Speech: Clear, WNL Mood: Anxious, isolative Affect: Flat Thought process: Delusional Thought Content: Perseveration on living with uncle Cognition: Alert and able to make needs known Insight: Fair Judgment: Fair Interventions PRN's used: None Therapeutic interventions: 1:1 assessment, medication administration/education/monitoring, therapeutic conversation, active listening, limit setting, encouraged pt to participate in unit and activities, behavior monitoring and intervention as needed; distraction, redirection, reality orientation, Q 15 minute safety checks. Justification: Patient continues to require constant monitoring by staff, milieu, group, and individual counseling as needed. He is on a TCON for gravely disabled and requires medication adjustment and monitoring. He is unable to formulate a plan to safely meet his basic needs of food, clothing, and custodial due to the severity of his mental illness.
[2021-01-21 19:40] VITALS: BP 144/95
[2021-01-21] MEDS: traZODone 50mg tablet PO PRN (20:09)
[2021-01-21] MEDS: clozapine 100mg tablet PO SCH (20:10)
[2021-01-21] MEDS: clozapine 25mg tablet PO SCH (20:11)
--- NOTE | 2021-01-22 05:52 | NUR ---
Nursing Progress Note Legal hold: TCON Client on involuntary status for GD Report received from EMILIANO Ramos with use of SBAR Why are they here: In December of 2019 pt placed at [place], incompetent to stand trial. He had a felony charge of 2nd degree robbery. Pt was given the [facility] and [place] psychologist determined significant cognitive impairment and he was sent back to [facility]. Pt was released from Shelter to attend his conservatorship hearing. The decision was made to LPS conserve him and he was then brought to [facility]. Assessment What has happened this shift: Patient is noted ambulating the unit and talking on a portable phone following shift change. He is well oriented. Patient is less intrusive than on the previous night cleaner. He is medication compliant. Patient is focused on discharge, he wants to live with his uncle. He denies S/I, H/I, or any hallucinations. Ativan was given for anxiety, Trazadone for sleep. Patient was cooperative with staff. S/I, H/I: Denies. A/VH: Denies. Sleep: Will tally at 0500 hours. ADL's: Independent. Group attendance: None on night cleaner. Were meds taken: Yes, medication compliant. Any med S/E: None noted or reported. Mental Status Exam Appearance: WNL. Eye contact: Good. Behavior: Cooperative and friendly. Speech: WNL. Mood: Anxious, Good mood, some anxiety. Affect: Flat. Thought process: Linear. Thought Content: Meeting one's needs, going to live with his Uncle. Cognition: A&O x4. Insight: Fair. Judgment: Fair. Interventions PRN's used: Ativan and Trazadone. Therapeutic interventions: 1:1 assessment, establishment of rapport, therapeutic conversation, active listening, encouraged pt to participate in unit procedures and activities, medication administration/education/monitoring, encouragement to notify nursing of symptoms and side effects, behavior monitoring and intervention as needed; distraction, redirection, reality orientation, limit setting, provided encouragement and positive reinforcement, Q 15 minute safety checks. Justification: Pt is on a TCON he is psychotic and gravely disabled, he is unable to safely function in society, he needs medication adjustment and management, he will need placement in an IMD.
[2021-01-22 07:32] VITALS: BP 100/60
[2021-01-22] MEDS: nicotine 7mg patch - 24hr TD SCH (08:56)
[2021-01-22] MEDS: divalproex sodium 500mg tablet.DR PO SCH ×2 (08:57→19:58)
[2021-01-22] MEDS: propranolol 10mg tablet PO SCH ×2 (08:57→19:58)
[2021-01-22] MEDS: haloperidol 5mg tablet PO SCH ×2 (08:57→19:58)
--- NOTE | 2021-01-22 14:09 | NUR ---
Nursing Progress Note Legal hold: TCON, involuntary status for GD Report received from EMILIANO Hunter with use of SBAR Why are they here: In December of 2019 pt placed at [place], incompetent to stand trial. He had a felony charge of 2nd degree robbery. Pt was given the [facility] and a [place] psychologist determined significant cognitive impairment and he was sent back to [facility]. Pt was released from [facility] to attend his conservatorship hearing. The decision was made to LPS conserve him and he was then brought to [facility]. Assessment What has happened this shift: Pt slept most of this shift. He woke up hungry around 11am and was given a sandwich and milk. At lunch he ate carbs. Pt isolates most of the shift. He requiring prompts for personal hygiene. S/I, H/I: Denies A/VH: Denies Sleep: Pt slept 6 hours last night per NOC shift. Two short naps throughout the day. ADL's: Independent. Group attendance: N/A Were Meds taken: Yes Any med S/E: None noted or observed Mental Status Exam Appearance: Styles, dark haired man wearing slept in hospital scrubs. Eye contact: Fair Behavior: Somewhat intrusive Speech: Clear, WNL Mood: Dysphoric Affect: Flat Thought process: Delusional Thought Content: Wants to leave here Cognition: A/O x3 Insight: Fair Judgment: Fair Interventions PRN's used: None Therapeutic interventions: 1:1 assessment, medication administration/education/monitoring, therapeutic conversation, behavior monitoring and intervention as needed; Q 15 minute safety checks. Justification: Patient continues to require constant monitoring by staff, milieu, group, and individual counseling as needed. He is on a TCON for gravely disabled and requires medication adjustment and monitoring. He is unable to formulate a plan to safely meet his basic needs of food, clothing, and mcfp due to the severity of his mental illness.
[2021-01-22] MEDS: LORazepam 1 MG tablet PO PRN ×2 (16:46→17:55)
[2021-01-22] MEDS: NICOTINE POLACRILEX 2 MG LOZENGE BC PRN (19:03)
[2021-01-22 19:27] VITALS: BP 127/72
[2021-01-22] MEDS: clozapine 100mg tablet PO SCH (19:57)
[2021-01-22] MEDS: clozapine 25mg tablet PO SCH (19:57)
[2021-01-22] MEDS: traZODone 50mg tablet PO PRN (20:51)
--- NOTE | 2021-01-23 01:48 | NUR ---
Nursing Progress Note Legal hold: TCON Client on involuntary status for GD Report received from EIMLIANO Ramos with use of SBAR Why are they here: In December of 2019 pt placed at [place], incompetent to stand trial. He had a felony charge of 2nd degree robbery. Pt was given the [facility] and [place] psychologist determined significant cognitive impairment and he was sent back to [facility]. Pt was released from [facility] to attend his conservatorship hearing. The decision was made to LPS conserve him and he was then brought to [facility]. Assessment What has happened this shift: Received the patient walking the halls. He's occasionally intrusive, but mostly he stops and stares at people for too long. He continues to deny MH symptoms. Patient can be heard talking to himself. He does not appear depressed. Patient is compliant with medications, and asks repeatedly if he's been given everything he can get. He goes to bed after HS med pass. S/I, H/I: Denies. A/VH: Denies. Sleep: See sleep assessment. ADL's: Independent. Group attendance: None on shift superintendent caustic cresylate. Were meds taken: Yes. Any med S/E: None reported or observed. Mental Status Exam Appearance: Well groomed young man, wearing street clothes. Eye contact: Good. Behavior: Cooperative, friendly, anxious. Speech: WNL. Mood: Anxious, Good mood, some anxiety. Affect: Flat. Thought process: Linear. Thought Content: Meeting one's needs, going to live with his Uncle. Cognition: A&O x4. Insight: Fair. Judgment: Fair. Interventions PRN's used: Ativan and Trazodone. Therapeutic interventions: 1:1 assessment, establishment of rapport, therapeutic conversation, active listening, encouraged pt to participate in unit procedures and activities, medication administration/education/monitoring, encouragement to notify nursing of symptoms and side effects, behavior monitoring and intervention as needed; distraction, redirection, reality orientation, limit setting, provided encouragement and positive reinforcement, Q 15 minute safety checks. Justification: Pt is on a TCON he is psychotic and gravely disabled, he is unable to safely function in society, he needs medication adjustment and management, he will need placement in an IMD.
[2021-01-23 08:00] VITALS: BP 111/62
[2021-01-23] MEDS: haloperidol 5mg tablet PO SCH ×2 (08:49→20:03)
[2021-01-23] MEDS: nicotine 7mg patch - 24hr TD SCH (08:50)
[2021-01-23] MEDS: divalproex sodium 500mg tablet.DR PO SCH ×2 (08:50→20:03)
[2021-01-23] MEDS: propranolol 10mg tablet PO SCH ×2 (08:50→20:03)
--- NOTE | 2021-01-23 16:43 | NUR ---
Nursing Progress Note Legal hold: TCON, involuntary status for GD Report received from EMILIANO Hunter with use of SBAR Why are they here: In December of 2019 pt placed at [place], incompetent to stand trial. He had a felony charge of 2nd degree robbery. Pt was given the [facility] and a [place] psychologist determined significant cognitive impairment and he was sent back to [facility]. Pt was released from Shelter to attend his conservatorship hearing. The decision was made to LPS conserve him and he was then brought to [facility]. Assessment What has happened this shift: Pt rarely comes out of his room. He has again slept mos of this shift. He does come out for meals and snacks. Pt denies he is depressed. He reports, "there is nothing else to do." S/I, H/I: Denies A/VH: Denies Sleep: Slept most of the shift ADL's: Independent. Group attendance: N/A Were Meds taken: Yes Any med S/E: None noted or observed Mental Status Exam Appearance: Short dark haired male wearing hospital scrubs Eye contact: Fair Behavior:Calm in bed most of the shift Speech: Clear, WNL Mood: Depressed Affect: Congruent with mood Thought process: Circumstantial Thought Content: Leaving here Cognition: A/O x3 Insight: Fair Judgment: Fair Interventions PRN's used: None Therapeutic interventions: 1:1 assessment, medication administration/education/monitoring, therapeutic conversation, behavior monitoring, encouraged to participate in activities on the unit, and intervention as needed; Q 15 minute safety checks. Justification: Patient continues to require constant monitoring by staff, milieu, group, and individual counseling as needed. He is on a TCON for gravely disabled and requires medication adjustment and monitoring. He is unable to formulate a plan to safely meet his basic needs of food, clothing, and fdc due to the severity of his mental illness.
[2021-01-23] MEDS: LORazepam 1 MG tablet PO PRN (18:40)
[2021-01-23 19:00] VITALS: BP 148/76
[2021-01-23] MEDS: clozapine 25mg tablet PO SCH (20:03)
[2021-01-23] MEDS: clozapine 100mg tablet PO SCH (20:03)
[2021-01-23] MEDS: traZODone 50mg tablet PO PRN (20:04)
--- NOTE | 2021-01-24 01:04 | NUR ---
Nursing Progress Note Legal hold: TCON Client on involuntary status for GD Report received from EMILIANO Polanco with use of SBAR Why are they here: In December of 2019 pt placed at [place], incompetent to stand trial. He had a felony charge of 2nd degree robbery. Pt was given the [facility] and [place] psychologist determined significant cognitive impairment and he was sent back to [facility]. Pt [facility] to attend his conservatorship hearing. The decision was made to LPS conserve him and he was then brought to [facility]. Assessment What has happened this shift: The patient was walking the halls at shift change, per his usual. He lies on his bed in between walks. He denies all MH symptoms while lying there mumbling to himself. He does not speak sentences; usually yes or no. He complies with medications, and then goes to bed. S/I, H/I: Denies. A/VH: Denies. Sleep: See sleep assessment. ADL's: Independent. Group attendance: None on steward/stewardess night. Were meds taken: Yes. Any med S/E: None reported or observed. Mental Status Exam Appearance: Well groomed young man, wearing street clothes. Eye contact: Good. Behavior: Cooperative, friendly, anxious, guarded. Speech: WNL. Mood: Anxious. Affect: Flat. Thought process: Linear. Thought Content: Meeting one's needs, going to live with his Uncle. Cognition: A&O x4. Insight: Fair. Judgment: Fair. Interventions PRN's used: Ativan and Trazodone. Therapeutic interventions: 1:1 assessment, establishment of rapport, therapeutic conversation, active listening, encouraged pt to participate in unit procedures and activities, medication administration/education/monitoring, encouragement to notify nursing of symptoms and side effects, behavior monitoring and intervention as needed; distraction, redirection, reality orientation, limit setting, provided encouragement and positive reinforcement, Q 15 minute safety checks. Justification: Pt is on a TCON he is psychotic and gravely disabled, he is unable to safely function in society, he needs medication adjustment and management, he will need placement in an IMD.
[2021-01-24 07:43] VITALS: BP 100/64
[2021-01-24] MEDS: nicotine 7mg patch - 24hr TD SCH (08:00)
[2021-01-24] MEDS: divalproex sodium 500mg tablet.DR PO SCH ×2 (08:04→20:01)
[2021-01-24] MEDS: haloperidol 5mg tablet PO SCH ×2 (08:04→20:01)
[2021-01-24] MEDS: propranolol 10mg tablet PO SCH ×2 (08:04→20:01)
--- NOTE | 2021-01-24 17:53 | NUR ---
Nursing Progress Note: Legal hold: TCON Client on involuntary status for GD Report received from Curt RN with use of SBAR Why are they here: [facility] to attend his conservatorship hearing. Decision was made to LPS conserve him and he was then brought to [facility]. Pt was showered and skin check completed along with MRSA swab. Pt overall cooperative, but also restless and wanted to sleep. Pt belongings inventoried and pt oriented to unit. Pt tolerated a moderate level of questions before falling asleep. Pt appears to have been taking Clozaril, Haldol and Depakote in intermediate. Pt tolerated assessments well and reports being very hungry. Pt appears anxious and guarded yet cooperative. Assessment What has happened this shift: RN received pt. asleep in bed at start of shift. Pt. appeared to isolate to his room all day, only coming out of his room to eat meals in the community room. 1:1 done at bedside, pt. gives minimal responses to this RNs questions, appearing disinterested and wanting to go back to napping. S/I, H/I: Denies A/VH: Denies Sleep: Pt. slept 7 hrs on NOC shift and napped throughout the day. ADL's: Independent with prompting. Group attendance: NA Were meds taken: Yes Any med S/E: Denies Mental Status Exam Appearance: Disheveled, wearing the same outfit multiple days in a row. Eye contact: Good Behavior: Cooperative but withdrawn, isolating to his room. Speech: Clear but minimal Mood: Depressed Affect: Congruent with mood. Thought process: Poverty of thought. Thought Content: Circumstantial. Cognition: A&O x4 Insight: Poor Judgment: Poor Interventions PRN's used: None Therapeutic interventions: Ensured contract for safety, 1:1 assessment, therapeutic communication with active listening, maintained a safe and supportive environment, medication administration/education/monitoring, maintained Q 15 minute safety checks, limit setting, distraction, and redirection. Restraints/seclusion/emergency medication: N/A Justification of Continued Inpatient Treatment: Per Dr. Mckinley, pt. requires a safe and supportive environment, medication adjustments, and interruption of current crisis.
[2021-01-24] MEDS: clozapine 100mg tablet PO SCH (20:01)
[2021-01-24] MEDS: clozapine 25mg tablet PO SCH (20:01)
[2021-01-24] MEDS: traZODone 50mg tablet PO PRN (20:01)
[2021-01-24] MEDS: LORazepam 1 MG tablet PO PRN (20:02)
[2021-01-24 20:53] VITALS: BP 130/77
--- NOTE | 2021-01-25 01:45 | NUR ---
Nursing Progress Note Legal hold: TCON Client on involuntary status for GD Report received from EMILIANO Polanco with use of SBAR Why are they here: In December of 2019 pt placed at [place], incompetent to stand trial. He had a felony charge of 2nd degree robbery. Pt was given the [facility] and [place] psychologist determined significant cognitive impairment and he was sent back to [facility]. Pt was released from [facility] to attend his conservatorship hearing. The decision was made to LPS conserve him and he was then brought to [facility]. Assessment What has happened this shift: Received patient in the hallway. He immediately asked me to find out when his hearing is tomorrow. Told him that I wouldn't be here, and his psychologist social or Doctor would be the one's to ask. "OK, can I have some Ativan?" Said it would be brought with all HS meds, and that made him happy. He spent much of the night out of his room, before taking medication and going to bed. S/I, H/I: Denies. A/VH: Denies. Sleep: See sleep assessment. ADL's: Independent. Group attendance: None on restaurant shift leader. Were meds taken: Yes. Any med S/E: None reported or observed. Mental Status Exam Appearance: Well groomed young man, wearing street clothes. Eye contact: Good. Behavior: Cooperative, friendly, anxious, guarded. Speech: WNL. Mood: Anxious. Affect: Congruent to mood. Thought process: Linear. Thought Content: Worried about his hearing. Cognition: A&O x4. Insight: Fair. Judgment: Fair. Interventions PRN's used: Ativan and Trazodone. Therapeutic interventions: 1:1 assessment, establishment of rapport, therapeutic conversation, active listening, encouraged pt to participate in unit procedures and activities, medication administration/education/monitoring, encouragement to notify nursing of symptoms and side effects, behavior monitoring and intervention as needed; distraction, redirection, reality orientation, limit setting, provided encouragement and positive reinforcement, Q 15 minute safety checks. Justification: Pt is on a TCON he is psychotic and gravely disabled, he is unable to safely function in society, he needs medication adjustment and management, he will need placement in an IMD.
[2021-01-25 07:46] LABS: BASOPHILS % (AUTO) 0.6 % (0-1); EOSINOPHILS # (AUTO) 0.3 X10'3 (0-0.9); EOSINOPHILS % (AUTO) 5.6 % (0-6); HEMATOCRIT 43.9 % (42.0-52.0); HEMOGLOBIN 14.7 g/dl (14.0-17.9); LYMPHOCYTES # (AUTO) 1.8 X10'3 (1.1-4.8); LYMPHOCYTES % (AUTO) 36.1 % (21-51); MEAN CORPUSCULAR HEMOGLOBIN 31.4 PG (27.0-31.0); MEAN CORPUSCULAR HGB CONC 33.6 g/dL (33.0-36.5); MEAN CORPUSCULAR VOLUME 93.7 FL (78-98); MEAN PLATELET VOLUME 7.6 FL (7.4-10.4); MONOCYTES # (AUTO) 0.7 X10'3 (0-0.9); MONOCYTES % (AUTO) 13.5 % (2-12); NEUTROPHILS # (AUTO) 2.2 X10'3 (1.8-7.7); NEUTROPHILS % (AUTO) 44.2 % (42-75); PLATELET COUNT 152 X10'3 (140-440); RED BLOOD COUNT 4.68 X10'6 (4.70-6.10); RED CELL DISTRIBUTION WIDTH 13.8 % (11.5-14.5)
[2021-01-25 07:59] VITALS: BP 95/60
[2021-01-25] MEDS: nicotine 7mg patch - 24hr TD SCH ×2 (08:00→09:02)
[2021-01-25 08:55] VITALS: BP 110/57
[2021-01-25] MEDS: haloperidol 5mg tablet PO SCH ×2 (09:02→19:46)
[2021-01-25] MEDS: propranolol 10mg tablet PO SCH ×2 (09:02→19:46)
[2021-01-25] MEDS: divalproex sodium 500mg tablet.DR PO SCH ×2 (09:02→19:45)
--- NOTE | 2021-01-25 09:26 | NUR ---
Reassessment: Pt with slight fluctuations in PO intake, occasionally refusing meals, however overall eating well with 75-100% PO intake. LB 01/23. PRN bowel care available on med list if needed. No nutrition intervention implemented at this time. Will continue to follow. Rec: 1. Continue regular diet 2. Bowel care PRN 3. Weekly scaled wts Addendum: 01/25/21 at [address] Amended: Links added.
--- NOTE | 2021-01-25 17:46 | NUR ---
Nursing Progress Note: Legal hold: LPS Report received from Jyoti CUMMINGS with use of SBAR Why are they here: Pt was [facility] from [facility] to attend his conservatorship hearing. Decision was made to LPS conserve him and he was then brought to [facility]. Pt was showered and skin check completed along with MRSA swab. Pt overall cooperative, but also restless and wanted to sleep. Pt belongings inventoried and pt oriented to unit. Pt tolerated a moderate level of questions before falling asleep. Pt appears to have been taking Clozaril, Haldol and Depakote in assisted. Pt tolerated assessments well and reports being very hungry. Pt appears anxious and guarded yet cooperative. Assessment What has happened this shift: Pt was asleep at change of shift. Pt sedated today, would not fully wake up this morning to participate in assessment. Slept all morning, went to court hearing at 1245, ate lunch, then went back to bed. Pt stated he is now conserved, but did not seem upset or surprised by the decision. S/I, H/I: did not respond A/VH: did not respond Sleep: 7.25 hours last NOC and napped throughout the day ADL's: Independent with prompting Group attendance: no Were meds taken: yes Any med S/E: denies, none observed Mental Status Exam Appearance: Disheveled Eye contact: would not open eyes to talk to this RN Behavior: tired, sleeping. Cooperative with going to court Speech: Clear but minimal Mood: would not respond Affect: constricted Thought process: Poverty of thought Thought Content: court, conservatorship Cognition: A&O x4 Insight: poor Judgment: poor Interventions PRN's used: None Therapeutic interventions: Ensured contract for safety, 1:1 assessment, therapeutic communication with active listening, maintained a safe and supportive environment, medication administration/education/monitoring, maintained Q 15 minute safety checks, limit setting, distraction, and redirection. Restraints/seclusion/emergency medication: N/A Justification of Continued Inpatient Treatment: Per Dr. Mckinley, pt. requires a safe and supportive environment, medication adjustments, and interruption of current crisis.
[2021-01-25] MEDS: traZODone 50mg tablet PO PRN (19:46)
[2021-01-25] MEDS: clozapine 25mg tablet PO SCH (20:00)
[2021-01-25] MEDS: clozapine 100mg tablet PO SCH (20:00)
[2021-01-25 20:26] VITALS: BP 96/55
--- NOTE | 2021-01-26 00:03 | NUR ---
Nursing Progress Note Legal hold: TCON Client on involuntary status for GD Report received from EMILIANO Polanco with use of SBAR Why are they here: In December of 2019 pt placed at [place], incompetent to stand trial. He had a felony charge of 2nd degree robbery. Pt was given the [facility] and [place] psychologist determined significant cognitive impairment and he was sent back to [facility] Pt was released from [facility] to attend his conservatorship hearing. The decision was made to LPS conserve him and he was then brought to [facility]. Assessment What has happened this shift: pt was friendly and cooperative this evening, but was sedated at shift change. Pt reports being lethargic. Pt denies all my symptoms and accepts hs meds without issue. Pt requested trazadone to help with sleep. S/I, H/I: Denies. A/VH: Denies. Sleep: See sleep assessment. ADL's: Independent. 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 Were meds taken: Yes. Any med S/E: None reported or observed. Mental Status Exam Appearance: Well groomed young man, wearing street clothes. Eye contact: Good. Behavior: Cooperative, friendly, guarded. Speech: WNL. Mood: Anxious. Affect: Congruent to mood. Thought process: Linear. Thought Content: getting needs met Cognition: A&O x4. Insight: Fair. Judgment: Fair. Interventions PRN's used: Trazodone. Therapeutic interventions: 1:1 assessment, establishment of rapport, therapeutic conversation, active listening, encouraged pt to participate in unit procedures and activities, medication administration/education/monitoring, encouragement to notify nursing of symptoms and side effects, behavior monitoring and intervention as needed; distraction, redirection, reality orientation, limit setting, provided encouragement and positive reinforcement, Q 15 minute safety checks. Justification: Pt is on a TCON he is psychotic and gravely disabled, he is unable to safely function in society, he needs medication adjustment and management, he will need placement in an I[facility].
[2021-01-26 08:00] VITALS: BP 120/71
[2021-01-26] MEDS: propranolol 10mg tablet PO SCH ×2 (08:20→20:05)
[2021-01-26] MEDS: nicotine 7mg patch - 24hr TD SCH (08:21)
[2021-01-26] MEDS: divalproex sodium 500mg tablet.DR PO SCH ×2 (08:21→20:05)
[2021-01-26] MEDS: haloperidol 5mg tablet PO SCH ×2 (08:21→20:04)
--- NOTE | 2021-01-26 13:29 | NUR ---
PLACEMENT Sent placement packet to [place] office. TIAGO Garay
[2021-01-26] MEDS: LORazepam 1 MG tablet PO PRN ×2 (16:19→23:18)
--- NOTE | 2021-01-26 17:29 | NUR ---
Nursing Progress Note: Arnold Schroeder Legal hold: LPS, involuntary status for GD Report received from EMILIANO Montes with use of SBAR Why are they here: In December of 2019 pt placed at [place], incompetent to stand trial. He had a felony charge of 2nd degree robbery. Pt was given the [facility] and [place] psychologist determined significant cognitive impairment and he was sent back to [facility]. Pt was released from [facility] to attend his conservatorship hearing. The decision was made to LPS conserve him and he was then brought to [facility]. Assessment What has happened this shift: Patient noted sleeping in bed at shift change. He was up and participated for breakfast in the community room. Shortly after, retreating back to his room to sleep. He appears restless and fatigued. When asked how patient is feeling, he stated, Im fine. He also endorsed to this nurse that he Doesnt care about his conservatorship. He appears avoidant, closed-off, and self-isolative to his room. Pt noted appearing very tired, not willing to engage in conversation with this consumer loan underwriter. Sleeping in bed throughout the day, participating in the community room for meals. 1:1 assessment completed, lungs CTA. At approximately 1500 he was noted walking around the unit listening to music through headphones. Shortly after, he approached this consumer loan underwriter and asked, is everything going okay in space? Patient noted making delusional statements of space and light switching from good to bad. Pt denies SI/HI, AH or VH. Does not appear to be responding to internal stimuli. He is compliant with medications. Patient noted to be anxious around 1600, stating, I am just worried about my Grandpa kelley. Pt given PRN Ativan for anxiety with effectiveness. He joined in the community room for all meals and was noted walking around the unit, yet keeping to himself and listening to music most of the time. S/I, H/I: Denies A/VH: Denies Sleep: Pt slept 8.5 hours last night per NOC shift. Napping throughout the day. ADL's: Independent Group attendance: No group provided today Were meds taken: Yes Any med S/E: None noted or observed Mental Status Exam Appearance: Disheveled from sleeping in bed, wearing green unit scrubs Eye contact: Good Behavior: Somewhat intrusive, dismissive, avoidant Speech: Clear, WNL Mood: Anxious, isolative Affect: Congruent with mood Thought process: Delusional Thought Content: Unable to assess. Will not engage in conversation with staff. Delusions of space. Cognition: Alert and able to make needs known Insight: Fair Judgment: Fair Interventions PRN's used: Ativan 1mg PO Therapeutic interventions: 1:1 assessment, medication administration/education/monitoring, therapeutic conversation, active listening, limit setting, encouraged pt to participate in unit and activities, behavior monitoring and intervention as needed; distraction, redirection, reality orientation, Q 15 minute safety checks. Justification: Patient continues to require monitoring by staff, milieu, group, and individual counseling as needed. He is on LPS for gravely disabled. Per SANJAY Kwong, patient is doing very well no change in medications or treatment plan patient now will be awaiting placement.
[2021-01-26] MEDS: NICOTINE POLACRILEX 2 MG LOZENGE BC PRN (17:58)
[2021-01-26] MEDS: clozapine 25mg tablet PO SCH (20:04)
[2021-01-26] MEDS: traZODone 50mg tablet PO PRN (20:04)
[2021-01-26] MEDS: clozapine 100mg tablet PO SCH (20:04)
[2021-01-26 20:53] VITALS: BP 151/102
--- NOTE | 2021-01-26 21:26 | NUR ---
Nursing Progress Note: Arnold Schroeder Legal hold: LPS, involuntary status for GD Report received from EIMLIANO Ramos with use of SBAR Why are they here: In December of 2019 pt placed at [place], incompetent to stand trial. He had a felony charge of 2nd degree robbery. Pt was given the [facility] and [place] psychologist determined significant cognitive impairment and he was sent back to [facility]. Pt was [facility] from [facility] to attend his conservatorship hearing. The decision was made to LPS conserve him and he was then brought to [facility]. Assessment What has happened this shift: Pt was walking in the banuelos at change of shift. Stops at nurses station and stares, was asked if he needed anything and he states no and continues staring w/blank look. Pt eventually walked away. Pt spent time wearing headphones, states his day was good, and said he was thinking about his friends today. Pt requests meds early tonight, and explained to pt meds are given on a schedule and he accepted this saying "Ok I'll just wait till after snack." Pt was calm, cooperative and took HS meds and went to bed. S/I, H/I: Denies A/VH: Denies Sleep: see sleep hours ADL's: Independent Group attendance: No group provided today Were meds taken: Yes Any med S/E: None noted or observed Mental Status Exam Appearance: Disheveled from sleeping in bed, wearing green unit scrubs and sweatshirt Eye contact: Good Behavior: Somewhat intrusive, dismissive, avoidant Speech: Clear, WNL Mood: Anxious, isolative Affect: Congruent with mood Thought process: Delusional Thought Content:asking about meds, and talking about friends Cognition: A/O x3 Insight: Fair Judgment: Fair Interventions PRN's used: trazodone Therapeutic interventions: 1:1 assessment, medication administration/education/monitoring, therapeutic conversation, active listening, limit setting, encouraged pt to participate in unit and activities, behavior monitoring and intervention as needed; distraction, redirection, reality orientation, Q 15 minute safety checks. Justification: Patient continues to require monitoring by staff, milieu, group, and individual counseling as needed. He is on LPS for gravely disabled. Per SANJAY Kwong, patient is doing very well no change in medications or treatment plan patient now will be awaiting placement. Addendum: 01/26/21 at 2329 by Maggy Crow RN Arnold is awake and c/o not being able to sleep and is asking for a nicotine lozenge. Pt has been in and out of bed pacing in the hallway. Asked the charge nurse "Are those brains on your shirt?" pt is laughing inappropriately and appears to be internally preoccupied. Pt is staring at staff. Pt is leaning in to examine the lock on the door of the nurses station. Pt was given prn ativan before returning to bed.
[2021-01-27 08:00] VITALS: BP 121/61
[2021-01-27] MEDS: propranolol 10mg tablet PO SCH ×2 (08:21→20:18)
[2021-01-27] MEDS: divalproex sodium 500mg tablet.DR PO SCH ×2 (08:21→20:17)
[2021-01-27] MEDS: haloperidol 5mg tablet PO SCH ×2 (08:21→20:18)
[2021-01-27] MEDS: nicotine 7mg patch - 24hr TD SCH (08:24)
[2021-01-27] MEDS: NICOTINE POLACRILEX 2 MG LOZENGE BC PRN (13:38)
[2021-01-27] MEDS: LORazepam 1 MG tablet PO PRN ×3 (14:15→20:59)
[2021-01-27] MEDS ORDERED: hydrOXYzine 25 MG tablet PO ONE (17:05)
--- NOTE | 2021-01-27 17:17 | NUR ---
Nursing Progress Note: Arnold Schroeder Legal hold: LPS, involuntary status for GD Report received from EMILIANO Montes with use of SBAR Why are they here: In December of 2019 pt placed at [place], incompetent to stand trial. He had a felony charge of 2nd degree robbery. Pt was given the [facility] and [place] psychologist determined significant cognitive impairment and he was sent back to [facility]. [facility] from [facility] to attend his conservatorship hearing. The decision was made to LPS conserve him and he was then brought to [facility]. Assessment What has happened this shift: Patient noted sleeping in bed at change of shift. He refused to participate in the community room for breakfast. Pt stated, I just dont want to go in there anymore. Im not hungry. He refused breakfast tray. Snacks and alternates offered and encouraged, patient refused. Not much has changed in the last day. Portrays dismissive responses. He continues to be avoidant, closed-off, and self-isolative to his room. Not willing to engage in conversation with staff. He was noted sleeping most of the morning, snoring with even respirations. 1:1 assessment completed, lungs CTA. He is compliant with medications. When asked how patient is feeling, he stated fine and denies SI/HI, AH or VH. He does not appear to be responding to internal stimuli. Patient encouraged to participate on the unit. He joined peers in the community room for lunch. Patient noted walking around the unit after lunch listening to music on his headphones. He sat with this quality analyst/technical writer in the community room and endorsed that he had a premonition in retirement a few years ago about space. Patient stated, I am space! At any given second everyone here could be tortured. I can make that happen. He also told this quality analyst/technical writer that he has had a spaceship fly over him before on [employer], a medium spaceship not a big one. He was given a PRN Ativan 1mg PO for anxiety. He approached this quality analyst/technical writer at approximately 1700 requesting something for anxiety, one time dose of PRN Atarax 50mg given per order by SANJAY Kwong. He joined in the community room for snacks/meals the rest of the day and was noted walking around the unit, keeping to himself and listening to music. S/I, H/I: Denies A/VH: Denies Sleep: Pt slept 5.25 hours last night per NOC shift. Napping throughout the day. ADL's: Independent Group attendance: No group provided today Were meds taken: Yes Any med S/E: None noted or observed Mental Status Exam Appearance: Disheveled from sleeping in bed, dressed appropriately for unit Eye contact: Avoidant Behavior: Somewhat intrusive, dismissive, avoidant Speech: Clear, WNL Mood: Anxious, isolative Affect: Congruent with mood Thought process: Delusional Thought Content: Delusions of space. Pt stated, I am space! At any given second everyone here could be tortured. Cognition: Alert and able to make needs known Insight: Fair Judgment: Fair Interventions PRN's used: Ativan 1mg PO, one time dose of PRN Atarax 50mg given per order by SANJAY Kwong Therapeutic interventions: 1:1 assessment, medication administration/education/monitoring, therapeutic conversation, active listening, limit setting, encouraged pt to participate in unit and activities, behavior monitoring and intervention as needed; distraction, redirection, reality orientation, Q 15 minute safety checks. Restraints/seclusion/emergency medication: N/A Justification: Patient continues to require monitoring by staff, milieu, group, and individual counseling as needed. Per SANJAY Kwong, patient is doing very well no change in medications or treatment plan. Patient is on LPS for gravely disabled and is awaiting placement.
[2021-01-27 19:00] VITALS: BP 123/82
[2021-01-27] MEDS: clozapine 25mg tablet PO SCH (20:09)
[2021-01-27] MEDS: clozapine 100mg tablet PO SCH (20:17)
[2021-01-27] MEDS: traZODone 50mg tablet PO PRN ×2 (20:18→20:59)
--- NOTE | 2021-01-28 00:22 | NUR ---
Nursing Progress Note: Arnold Schroeder Legal hold: LPS, involuntary status for GD Report received from EMILIANO Montes with use of SBAR Why are they here: In December of 2019 pt placed at [place], incompetent to stand trial. He had a felony charge of 2nd degree robbery. Pt was given the [facility] and [place] psychologist determined significant cognitive impairment and he was sent back to [facility]. [facility] to [facility] his [facility]atorship hearing. The decision was made to LPS conserve him and he was then brought to [facility]. Assessment What has happened this shift: Pt was in the hallway at change of shift, asking if he could have meds early tonight. He usually asks this each night and is told he will receive then when scheduled. Pt reports he is having a good day. Spends time walking in the hallway and attempts to joke with staff repeatedly saying "How you doin?" and laughing. Although patient is in the halls does not seem to be engaging with other patients, mostly isolates to himself, spends time listening to head phones. Pt had snack, took meds and went to bed. Pt then c/o not being able to fall asleep "Im just thinking about too many things and I can't rest my head." Pt was given repeat doses of HS prns and went to bed. S/I, H/I: Denies A/VH: Denies Sleep: see sleep hours ADL's: Independent Group attendance: No group provided today Were meds taken: Yes Any med S/E: None noted or observed Mental Status Exam Appearance: Disheveled from sleeping in bed, dressed appropriately for unit Eye contact: Avoidant Behavior: Somewhat intrusive, dismissive, avoidant Speech: Clear, WNL Mood: Anxious, isolative Affect: Congruent with mood Thought process: Delusional Thought Content: getting needs met, wants meds, snacks, Cognition: Alert and able to make needs known Insight: Fair Judgment: Fair Interventions PRN's used: Ativan, trazodone Therapeutic interventions: 1:1 assessment, medication administration/education/monitoring, therapeutic conversation, active listening, limit setting, encouraged pt to participate in unit and activities, behavior monitoring and intervention as needed; distraction, redirection, reality orientation, Q 15 minute safety checks. Restraints/seclusion/emergency medication: N/A Justification: Patient continues to require monitoring by staff, milieu, group, and individual counseling as needed. Per SANJAY Kwong, patient is doing very well no change in medications or treatment plan. Patient is on LPS for gravely disabled and is awaiting placement. Addendum: 01/28/21 at 0202 by Maggy Crow RN Pt reports that he threw his patch in the garbage earlier today and no longer has it on, because "sometimes it makes me feel sick"
[2021-01-28 07:00] VITALS: BP 103/50
[2021-01-28] MEDS: haloperidol 5mg tablet PO SCH ×2 (08:12→19:51)
[2021-01-28] MEDS: propranolol 10mg tablet PO SCH ×2 (08:12→19:51)
[2021-01-28] MEDS: divalproex sodium 500mg tablet.DR PO SCH ×2 (08:13→19:51)
[2021-01-28] MEDS: nicotine 7mg patch - 24hr TD SCH (08:13)
--- NOTE | 2021-01-28 14:35 | NUR ---
Nursing Progress Note: Legal hold: LPS, involuntary status for GD Report received from Jocelynn Manriquez RN with use of SBAR Why are they here: In December of 2019 pt placed at [place], incompetent to stand trial. He had a felony charge of 2nd degree robbery. Pt was given the [facility] and [place] psychologist determined significant cognitive impairment and he was sent back to [facility]. Pt was released from [facility] to attend his conservatorship hearing. The decision was made to LPS conserve him and he was then brought to [facility]. Assessment What has happened this shift: Patient noted sleeping in bed at change of shift. He refused to participate in the community room for breakfast. Pt stated, I just dont want to go in there anymore. Im not hungry. He refused breakfast tray. Snacks and alternates offered and encouraged, patient refused. Not much has changed in the last day. Not willing to engage in conversation with staff 1:1 assessment completed. He is compliant with medications. When asked how patient is feeling, he stated fine and denies SI/HI, AH or VH. He does not appear to be responding to internal stimuli. Patient encouraged to participate on the unit. He joined peers in the community room for lunch. Arnold retreated back to his room where he is found under covers for the rest of the day. Patient continues to state "I am just tired". S/I, H/I: Denies A/VH: Denies Sleep: Napping throughout the day. ADL's: No shower today Group attendance: No group provided today Were meds taken: Yes Any med S/E: None noted or observed Mental Status Exam Appearance: Disheveled from sleeping in bed, dressed appropriately for unit Eye contact: Avoidant Behavior: dismissive, avoidant Speech: Clear, WNL Mood: Flat, isolative Affect: Congruent with mood Thought process: Delusional Thought Content: Patient did not have much to say today Cognition: Alert and able to make needs known Insight: Fair Judgment: Fair Interventions PRN's used: Therapeutic interventions: 1:1 assessment, medication administration/education/monitoring, therapeutic conversation, active listening, limit setting, encouraged pt to participate in unit and activities, behavior monitoring and intervention as needed; distraction, redirection, reality orientation, Q 15 minute safety checks. Restraints/seclusion/emergency medication: N/A Justification: Patient is conserved with [facility] due to failed out patient treatment plans. Patient is getting medication changes and needs observation for efficacy and SE during his stay.
[2021-01-28] MEDS: LORazepam 1 MG tablet PO PRN (17:54)
[2021-01-28 19:00] VITALS: BP 125/72
[2021-01-28] MEDS: traZODone 50mg tablet PO PRN (19:51)
[2021-01-28] MEDS: clozapine 100mg tablet PO SCH (19:53)
[2021-01-28] MEDS: clozapine 25mg tablet PO SCH (19:54)
--- NOTE | 2021-01-29 03:25 | NUR ---
RN PROGRESS NOTE: LEGAL HOLD: [facility] for GD THIS SHIFT: Client was out on unit. He has a tendency to stare at staff and seems to want to engage with others. At times he sat in the banuelos and watched others on the unit. He has a flat affect. He had snack and took his meds. Client has poor hygiene and needs to be encouraged to shower. He is pleasant and cooperative. Denies SI/HI. DISCHARGE: TBD
[2021-01-29] MEDS: LORazepam 1 MG tablet PO PRN ×3 (03:53→20:23)
[2021-01-29 08:00] VITALS: BP 132/98
[2021-01-29] MEDS: nicotine 7mg patch - 24hr TD SCH (08:00)
[2021-01-29] MEDS: haloperidol 5mg tablet PO SCH ×2 (08:21→20:23)
[2021-01-29] MEDS: divalproex sodium 500mg tablet.DR PO SCH ×2 (08:21→20:23)
[2021-01-29] MEDS: propranolol 10mg tablet PO SCH ×2 (08:21→20:23)
--- NOTE | 2021-01-29 15:04 | NUR ---
Nursing Progress Note: Legal hold: LPS, involuntary status for GD Report received from Jocelynn Manriquez RN with use of SBAR Why are they here: In December of 2019 pt placed at [place], incompetent to stand trial. He had a felony charge of 2nd degree robbery. Pt was given the [facility] and [place] psychologist determined significant cognitive impairment and he was sent back to [facility]. [facility] to attend his conservatorship hearing. The decision was made to LPS conserve him and he was then brought to [facility]. Assessment What has happened this shift: Patient noted sleeping in bed at change of shift. He refused to participate in the community room for breakfast. Snacks and alternates offered and encouraged, patient refused. Not much has changed in the last day. Not willing to engage in conversation with staff 1:1 assessment completed. He is compliant with medications. When asked how patient is feeling, he stated fine and denies SI/HI, AH or VH. He does not appear to be responding to internal stimuli. Patient encouraged to participate on the unit. He joined peers in the community room for lunch. Arnold retreated back to his room where he is found under covers for the rest of the day. Patient continues to state "I am just tired". This selling underwriter asked patient shower today, patient states, "no I am ok", this selling underwriter informed Arnold that his clothes smell sour, patient states "no they don't" S/I, H/I: Denies A/VH: Denies, although patient is seen talking to himself often and when asked "who you talking to?" patient states "who ever will listen, or I guess nobody". Sleep: Napping throughout the day. ADL's: No shower today Group attendance: No group provided today Were meds taken: Yes Any med S/E: None noted or observed Mental Status Exam Appearance: Disheveled from sleeping in bed, dressed appropriately for unit Eye contact: Avoidant Behavior: dismissive, avoidant Speech: Clear, WNL Mood: Flat, isolative Affect: Congruent with mood Thought process: Delusional Thought Content: Patient did not have much to say today Cognition: Alert and able to make needs known Insight: Fair Judgment: Fair Interventions PRN's used: Ativan Therapeutic interventions: 1:1 assessment, medication administration/education/monitoring, therapeutic conversation, active listening, limit setting, encouraged pt to participate in unit and activities, behavior monitoring and intervention as needed; distraction, redirection, reality orientation, Q 15 minute safety checks. Restraints/seclusion/emergency medication: N/A Justification: Patient is conserved with [facility] due to failed out patient treatment plans. Patient is getting medication changes and needs observation for efficacy and SE during his stay.
[2021-01-29] MEDS: NICOTINE POLACRILEX 2 MG LOZENGE BC PRN (16:10)
[2021-01-29 19:00] VITALS: BP 136/89
[2021-01-29] MEDS: traZODone 50mg tablet PO PRN (20:23)
[2021-01-29] MEDS: clozapine 100mg tablet PO SCH (20:25)
[2021-01-29] MEDS: clozapine 25mg tablet PO SCH (20:25)
--- NOTE | 2021-01-30 00:41 | NUR ---
Nursing Progress Note Legal hold: TCON Client on involuntary status for GD Report received from EMILIANO Ramos with use of SBAR Why are they here: In December of 2019 pt placed at [place], incompetent to stand trial. He had a felony charge of 2nd degree robbery. Pt was given the [facility] and [place] psychologist determined significant cognitive impairment and he was sent back to [place]. Pt was released from [facility] to attend his conservatorship hearing. The decision was made to LPS conserve him and he was then brought to [facility]. Assessment What has happened this shift: This patient is observed ambulating the halls and listening to music on headphones. At times the patient presents as needy and presents with what appears to be paranoia. Patient tells this functional tester typewriters that two of the female patients are calling him a pedophile under their breaths. Some obvious anxiety is present. Patients thoughts are of his family. Patient denies S/I, H/I, ore any hallucinations. The patient was given Ativan and Trazadone. He retired to bed and sleep. S/I, H/I: Denies. A/VH: Denies. Sleep: Will tally at 0500 hours. ADL's: Independent. Group attendance: None on manager shift. Were meds taken: Yes. Any med S/E: none noted. Mental Status Exam Appearance: Clean and neat. Eye contact: Good. Behavior: Quiet. Out of room but not social. Speech: WNL. Mood: Anxious. Affect: Depressed. Thought process: Paranoid. Thought Content: Meeting one's needs, thinking about family. Cognition: A&O x4. Insight: Fair. Judgment: Fair. Interventions PRN's used: Trazadone. Therapeutic interventions: 1:1 assessment, establishment of rapport, therapeutic conversation, active listening, encouraged pt to participate in unit procedures and activities, medication administration/education/monitoring, encouragement to notify nursing of symptoms and side effects, behavior monitoring and intervention as needed; distraction, redirection, reality orientation, limit setting, provided encouragement and positive reinforcement, Q 15 minute safety checks. Justification: Pt is on a TCON he is psychotic and gravely disabled, he is unable to safely function in society, he needs medication adjustment and management, he will need placement in an IMD.
[2021-01-30 08:00] VITALS: BP 107/59
[2021-01-30] MEDS: nicotine 7mg patch - 24hr TD SCH ×3 (08:00→13:33)
[2021-01-30] MEDS: haloperidol 5mg tablet PO SCH ×2 (08:29→20:08)
[2021-01-30] MEDS: divalproex sodium 500mg tablet.DR PO SCH ×2 (08:29→20:08)
[2021-01-30] MEDS: propranolol 10mg tablet PO SCH ×2 (08:31→20:08)
--- NOTE | 2021-01-30 14:31 | NUR ---
Nursing Progress Note Legal hold: TCON Client on involuntary status for GD Report received from EMILIANO Harrington with use of SBAR Why are they here: In December of 2019 pt placed at [place], incompetent to stand trial. He had a felony charge of 2nd degree robbery. Pt was given the [facility] and [place] psychologist determined significant cognitive impairment and he was sent back to [facility]. Pt was released from [facility] to attend his conservatorship hearing. The decision was made to LPS conserve him and he was then brought to [facility]. Assessment What has happened this shift: This patient spends all day in bed. PT out of bed long enough to request his nicotine patch at 1330. Pt denies any needs. Pt denies any symptoms. Encouraged pt to come out into the Milieu. Pt stays in bed until 1445 and then ambulated the hallway using the phone. Pt is awaiting placement. S/I, H/I: Denies. A/VH: Denies. Sleep: Napping most of the day. ADL's: Independent. Group attendance: None during pandemic. Were meds taken: Yes. Any med S/E: none noted. Mental Status Exam Appearance: Clean and neat. Eye contact: Good. Behavior: Quiet. Out of room but not social. Speech: WNL. Mood: Anxious. Affect: Depressed. Thought process: Paranoid. Thought Content: Cognition: A&O x4. Insight: Fair. Judgment: Fair. Interventions PRN's used: none Therapeutic interventions: 1:1 assessment, establishment of rapport, therapeutic conversation, active listening, encouraged pt to participate in unit procedures and activities, medication administration/education/monitoring, encouragement to notify nursing of symptoms and side effects, behavior monitoring and intervention as needed; distraction, redirection, reality orientation, limit setting, provided encouragement and positive reinforcement, Q 15 minute safety checks. Justification: Pt is on a TCON he is psychotic and gravely disabled, he is unable to safely function in society, he needs medication adjustment and management, he will need placement in an IMD.
[2021-01-30] MEDS: LORazepam 1 MG tablet PO PRN ×2 (14:53→20:49)
[2021-01-30 20:00] VITALS: BP 100/55
[2021-01-30] MEDS: clozapine 100mg tablet PO SCH (20:08)
[2021-01-30] MEDS: traZODone 50mg tablet PO PRN (20:09)
[2021-01-30] MEDS: clozapine 25mg tablet PO SCH (20:09)
--- NOTE | 2021-01-31 03:02 | NUR ---
Nursing Progress Note: Arnold Legal hold: TCON Client on involuntary status for GD Report received from Richard CUMMINGS with use of SBAR Why are they here: In December of 2019 pt placed at [place], incompetent to stand trial. He had a felony charge of 2nd degree robbery. Pt was given the [facility] and [place] psychologist determined significant cognitive impairment and he was sent back to [place]. Pt was released from [facility] to attend his conservatorship hearing. The decision was made to LPS conserve him and he was then brought to [facility]. Assessment What has happened this shift: Patient pacing the hallways with headphones, requests Ativan and nicotine lozenge and asks about receiving his meds early. PT up for snacks and took all prescribed medication without issue. Pt denies MH symptoms. No other needs at this time. S/I, H/I: Denies. A/VH: Denies. Sleep: ADL's: Independent. Group attendance: None during pandemic. Were meds taken: Yes. Any med S/E: none noted. Mental Status Exam Appearance: Clean and neat. Eye contact: Good. Behavior: Quiet. Out of room but not social. Speech: WNL. Mood: Anxious. Affect: Depressed. Thought process: Paranoid. Thought Content: Cognition: A&O x4. Insight: Fair. Judgment: Fair. Interventions PRN's used: none Therapeutic interventions: 1:1 assessment, establishment of rapport, therapeutic conversation, active listening, encouraged pt to participate in unit procedures and activities, medication administration/education/monitoring, encouragement to notify nursing of symptoms and side effects, behavior monitoring and intervention as needed; distraction, redirection, reality orientation, limit setting, provided encouragement and positive reinforcement, Q 15 minute safety checks. Justification: Pt is on a TCON he is psychotic and gravely disabled, he is unable to safely function in society, he needs medication adjustment and management, he will need placement in an IMD.
[2021-01-31] MEDS: nicotine 7mg patch - 24hr TD SCH (08:00)
[2021-01-31 08:21] VITALS: BP 107/56
[2021-01-31] MEDS: propranolol 10mg tablet PO SCH ×2 (08:34→20:05)
[2021-01-31] MEDS: haloperidol 5mg tablet PO SCH ×2 (08:34→20:06)
[2021-01-31] MEDS: clozapine 25mg tablet PO SCH ×2 (08:34→20:05)
[2021-01-31] MEDS: divalproex sodium 500mg tablet.DR PO SCH ×2 (08:34→20:06)
--- NOTE | 2021-01-31 17:50 | NUR ---
Nursing Progress Note: Legal hold: LPS Client on involuntary status for GD Report received from Richard CUMMINGS with use of SBAR Why are they here: Pt was released from [facility] to attend his conservatorship hearing. Decision was made to LPS conserve him and he was then brought to [facility]. Pt was showered and skin check completed along with MRSA swab. Pt overall cooperative, but also restless and wanted to sleep. Pt belongings inventoried and pt oriented to unit. Pt tolerated a moderate level of questions before falling asleep. Pt appears to have been taking Clozaril, Haldol and Depakote in [facility]. Pt tolerated assessments well and reports being very hungry. Pt appears anxious and guarded yet cooperative. Assessment What has happened this shift: RN received pt. asleep in bed at start of shift. Pt. appeared to isolate to his room until late afternoon. 1:1 done in community room. Pt. reports hes, good but gives minimal information. Pt. ate all his meals in the community room and ate all snacks. Pt. observed socializing with male peer in the community room. S/I, H/I: Denies A/VH: Denies Sleep: Pt. slept 7.75 hrs on NOC shift and napped throughout the day. ADL's: Independent with prompting. Group attendance: NA Were meds taken: Yes Any med S/E: Denies Mental Status Exam Appearance: Disheveled but clean, wearing the same outfit multiple days in a row. Eye contact: Good Behavior: Cooperative but withdrawn, isolating to his room. Pt. observed socializing with male peer in community room. Speech: Clear but minimal. Mood: Euthymic Affect: Congruent with mood. Thought process: Poverty of thought. Thought Content: Circumstantial. Cognition: A&O x4 Insight: Poor Judgment: Poor Interventions PRN's used: None Therapeutic interventions: Ensured contract for safety, 1:1 assessment, therapeutic communication with active listening, maintained a safe and supportive environment, medication administration/education/monitoring, maintained Q 15 minute safety checks, limit setting, distraction, and redirection. Restraints/seclusion/emergency medication: N/A Justification of Continued Inpatient Treatment: Per Dr. Mckinley, pt. requires a safe and supportive environment, medication adjustments, and interruption of current crisis.
[2021-01-31] MEDS: traZODone 50mg tablet PO PRN (20:05)
[2021-01-31] MEDS: clozapine 100mg tablet PO SCH (20:05)
[2021-01-31] MEDS: LORazepam 1 MG tablet PO PRN (20:06)
[2021-01-31 20:45] VITALS: BP 137/80
--- NOTE | 2021-01-31 22:45 | NUR ---
Nursing Progress Note: Legal hold: LPS Client on involuntary status for GD Report received from Richard CUMMINGS with use of SBAR Why are they here: Pt was released from [facility] to attend his conservatorship hearing. Decision was made to LPS conserve him and he was then brought to [facility]. Pt was showered and skin check completed along with MRSA swab. Pt overall cooperative, but also restless and wanted to sleep. Pt belongings inventoried and pt oriented to unit. Pt tolerated a moderate level of questions before falling asleep. Pt appears to have been taking Clozaril, Haldol and Depakote in prison. Pt tolerated assessments well and reports being very hungry. Pt appears anxious and guarded yet cooperative. Assessment What has happened this shift: Pt was in the banuelos asking to get his meds early as he usually does. Explained they would be administered on schedule. Pt states he understands. A few minutes later patient sprinted from his room to nurses station end of the banuelos. Pt shouted "Man did you see how fast I was going!" Pt was smiling big and appeared to be very impressed with himself. Redirected patient and told him he is not allowed to run while he is on the unit. Pt had no more episodes of running in the banuelos. Pt appears to be in a pleasant mood. States he took some naps today and asks if he will be getting ativan and trazodone with HS meds. Pt had a snack is med compliant and went to bed. S/I, H/I: Denies A/VH: Denies Sleep: see sleep hours ADL's: Independent with prompting. Group attendance: NA Were meds taken: Yes Any med S/E: Denies Mental Status Exam Appearance: Disheveled but clean, wearing the same outfit multiple days in a row. Eye contact: Good Behavior: Cooperative Speech: Clear but minimal. Mood: Euthymic Affect: Congruent with mood. Thought process: Poverty of thought. Thought Content: Circumstantial. Cognition: A&O x4 Insight: Poor Judgment: Poor Interventions PRN's used: ativan trazodone Therapeutic interventions: Ensured contract for safety, 1:1 assessment, therapeutic communication with active listening, maintained a safe and supportive environment, medication administration/education/monitoring, maintained Q 15 minute safety checks, limit setting, distraction, and redirection. Restraints/seclusion/emergency medication: N/A Justification of Continued Inpatient Treatment: Per Dr. Mckinley, pt. requires a safe and supportive environment, medication adjustments, and interruption of current crisis.
[2021-02-01 08:00] VITALS: BP 108/64
[2021-02-01] MEDS: nicotine 7mg patch - 24hr TD SCH (08:00)
[2021-02-01] MEDS: propranolol 10mg tablet PO SCH ×2 (08:12→20:16)
[2021-02-01] MEDS: haloperidol 5mg tablet PO SCH ×2 (08:12→20:16)
[2021-02-01] MEDS: divalproex sodium 500mg tablet.DR PO SCH ×2 (08:12→20:17)
[2021-02-01] MEDS: clozapine 25mg tablet PO SCH ×2 (08:12→20:17)
--- NOTE | 2021-02-01 09:06 | NUR ---
Reassessment: Pt with slight fluctuations in PO intake, occasionally refusing meals, however overall eating well with mostly 100% PO intake on regular diet while receiving double protein TID per diet order. LBM 01/29. PRN bowel care available on med list if needed. No nutrition intervention implemented at this time. Will continue to follow. Rec: 1. Continue regular diet 2. Double eggs WB, double meat BIDLD per diet order 3. Bowel care PRN 4. Weekly scaled wts Addendum: 02/01/21 at [address] Amended: Links added.
[2021-02-01] MEDS: NICOTINE POLACRILEX 2 MG LOZENGE BC PRN (17:32)
--- NOTE | 2021-02-01 17:39 | NUR ---
Nursing Progress Note: Arnold Schroeder Legal hold: LPS, involuntary status for GD Report received from EMILIANO Montes with use of SBAR Why are they here: In December of 2019 pt placed at [place], incompetent to stand trial. He had a felony charge of 2nd degree robbery. Pt was given the [facility] and [place] psychologist determined significant cognitive impairment and he was sent back to [facility]. Pt was released from [facility] to attend his conservatorship hearing. The decision was made to LPS conserve him and he was then brought to [facility]. Assessment What has happened this shift: Patient noted sleeping in bed at change of shift. He refused to eat breakfast this morning despite encouragement. 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 [place] and chips given. He continues to be avoidant, closed-off, and self-isolative to his room. Not willing to engage in conversation with staff. Portrays dismissive responses. He participated in the community room for lunch. Noted sitting by himself quietly, socially withdrawn. He retreated back to his room shortly after, noted to be fatigued and sleeping most of the day. 1:1 assessment completed, lungs CTA. He is compliant with medications. Denies SI/HI, AH or VH. He does not appear to be responding to internal stimuli. Patient encouraged to participate on the unit. He displays poverty of thought and poverty of speech. He joined in the community room for snacks/meals the rest of the day and was noted walking around the unit, keeping to himself and listening to music. S/I, H/I: Denies A/VH: Denies Sleep: Pt slept 8.25 hours last night per NOC shift. Sleeping most of the day. ADL's: Independent Group attendance: No group provided today Were meds taken: Yes Any med S/E: None noted or observed Mental Status Exam Appearance: Disheveled from sleeping in bed, wearing green unit scrubs Eye contact: Avoidant Behavior: Somewhat intrusive, dismissive, avoidant Speech: Clear, poverty of speech Mood: Anxious, isolative Affect: Congruent with mood Thought process: Poverty of thought Thought Content: Unable to assess. Patient unwilling to engage. Cognition: Alert and able to make needs known Insight: Fair Judgment: Fair Interventions PRN's used: None Therapeutic interventions: 1:1 assessment, medication administration/education/monitoring, therapeutic conversation, active listening, limit setting, encouraged pt to participate in unit and activities, behavior monitoring and intervention as needed; distraction, redirection, reality orientation, Q 15 minute safety checks. Restraints/seclusion/emergency medication: N/A Justification: Patient continues to require monitoring by staff, milieu, group, and individual counseling as needed. Patient is on LPS for gravely disabled and is awaiting placement. Per SANJAY Kwong, The patient is currently at baseline is awaiting placement.
[2021-02-01] MEDS: LORazepam 1 MG tablet PO PRN (17:56)
[2021-02-01 20:10] VITALS: BP 142/84
[2021-02-01] MEDS: traZODone 50mg tablet PO PRN (20:16)
[2021-02-01] MEDS: clozapine 100mg tablet PO SCH (20:16)
--- NOTE | 2021-02-02 01:23 | NUR ---
Nursing Progress Note: Arnold Schroeder Legal hold: LPS, involuntary status for GD Report received from Richard CUMMINGS with use of SBAR Why are they here: In December of 2019 pt placed at [place], incompetent to stand trial. He had a felony charge of 2nd degree robbery. Pt was given the [facility] and [place] psychologist determined significant cognitive impairment and he was sent back to [facility]. Pt was released from [facility] to attend his conservatorship hearing. The decision was made to LPS conserve him and he was then brought to [facility]. Assessment What has happened this shift:Pt was in the hallway at change of shift. Pt smiles and jokes "My day was crappy!" then laughs and walks away. Pt returns and asks "Can I get my meds early tonight?" as he does every night. Pt was told he will get meds on schedule, then asks can I get Ativan and trazodone too? Pt already had ativan on previous shift. Pt was given HS meds, has trouble falling asleep each night but tonight only had one prn of trazodone. Pt sits with other patients, however, doesnt engage in conversation. Isolates to himself, at times has minimal conversation with staff. Pt had a snack and went to bed. S/I, H/I: Denies A/VH: Denies but RIS, staring at the issa and laughing to himself Sleep: see sleep hours ADL's: Independent Group attendance: no evening groups Were meds taken: Yes Any med S/E: fatigued Mental Status Exam Appearance: disheveled wearing same clothing as yesterday, greasy hair, declined a shower Eye contact: fair Behavior: isolative, preoccupied, RIS Speech: Clear Mood: Anxious, excitable, jovial Affect: constricted Thought process: Poverty of thought Thought Content: obtaining sleep meds Cognition: Alert and able to make needs known Insight: Fair Judgment: Fair Interventions PRN's used: None Therapeutic interventions: 1:1 assessment, medication administration/education/monitoring, therapeutic conversation, active listening, limit setting, encouraged pt to participate in unit and activities, behavior monitoring and intervention as needed; distraction, redirection, reality orientation, Q 15 minute safety checks. Restraints/seclusion/emergency medication: N/A Justification: Patient continues to require monitoring by staff, milieu, group, and individual counseling as needed. Patient is on LPS for gravely disabled and is awaiting placement. Per SANJAY Kwong, The patient is currently at baseline is awaiting placement. Addendum: 02/02/21 at 0138 by Maggy Crow RN PRN: [email or web address]
[2021-02-02 08:00] VITALS: BP 102/61
[2021-02-02] MEDS: propranolol 10mg tablet PO SCH ×2 (08:02→20:15)
[2021-02-02] MEDS: divalproex sodium 500mg tablet.DR PO SCH ×2 (08:02→20:13)
[2021-02-02] MEDS: haloperidol 5mg tablet PO SCH ×2 (08:02→20:14)
[2021-02-02] MEDS: clozapine 25mg tablet PO SCH ×2 (08:02→20:13)
[2021-02-02] MEDS: nicotine 7mg patch - 24hr TD SCH (08:04)
--- NOTE | 2021-02-02 11:22 | NUR ---
Received call from patient's Public Guardian, Gino. Informed that patient was accepted to [facility]. Transport will be initiated for this week. No specified day at this time.
--- NOTE | 2021-02-02 14:34 | NUR ---
Placement Pt's accepted @ [facility], he will need 7-days of meds. Transportation is pending confirmation of discharge meds. SS consulted w/attending PA, per consultation, PA will see pt and send meds order to [facility] for delivery on . Yarely Smith LCSW Addendum: 02/02/21 at 1439 by Yarely NEWTON Amended: Links added.
[2021-02-02] MEDS ORDERED: HALO5TAB PO (16:44)
[2021-02-02] MEDS ORDERED: PROP10TA10 PO (16:44)
[2021-02-02] MEDS ORDERED: CLOZ25TA12 PO ×2 (16:44)
[2021-02-02] MEDS ORDERED: ATI1T PO (16:44)
[2021-02-02] MEDS ORDERED: NICO-630 TD (16:44)
[2021-02-02] MEDS ORDERED: DIVA-76 PO (16:44)
[2021-02-02] MEDS ORDERED: NICO-668 BC (16:44)
[2021-02-02] MEDS ORDERED: CLOZ100T13 PO (16:44)
[2021-02-02] MEDS ORDERED: TRAZ-251 PO (16:44)
--- NOTE | 2021-02-02 17:21 | NUR ---
Nursing Progress Note: Arnold Schroeder Legal hold: LPS, involuntary status for GD Report received from EMILIANO Montes with use of SBAR Why are they here: In December of 2019 pt placed at [place], incompetent to stand trial. He had a felony charge of 2nd degree robbery. Pt was given the [facility] and [place] psychologist determined significant cognitive impairment and he was sent back to [place]. Pt was released from [facility] to attend his conservatorship hearing. The decision was made to LPS conserve him and he was then brought to [facility]. Assessment What has happened this shift: Patient noted sleeping in bed at shift change. Patient encouraged to get out of bed and join in the community room for breakfast. When asked how he is feeling this morning, he stated, I am good. He retreated back to his room shortly after. He refused physical 1:1 assessment when asked. He proceeded to cover a blanket over his face while lying in bed and ignore this copy writer. He continues to be self-isolative, avoidant, closed-off, and antisocial with peers. He slept for approximately three hours before getting out of bed. Patient encouraged to participate on the unit. Around 1200 patient noted sitting in the recreation room with peers watching a movie. He appears somnolent and withdrawn. He endorsed to this copy writer that he doesnt feel great but was unable to emphasize on how he is feeling. He displays poverty of thought and poverty of speech. 1:1 assessment completed, lungs CTA. He is compliant with medications. Denies SI/HI, AH or VH. He does not appear to be responding to internal stimuli. He agreed to allow this copy writer to do 1:1 assessment later in the day, WNL. Patient agreed to take a shower today after multiple attempts and refusals to shower. He was dressed in clean clothing with clean linen applied to the bed. He joined in the community room for snacks and meals the rest of the day and was noted walking around the unit, keeping to himself. S/I, H/I: Denies A/VH: Denies Sleep: Pt slept 8.5 hours last night per NOC shift. Sleeping most of the day. ADL's: Independent Group attendance: No group provided today Were meds taken: Yes Any med S/E: None noted or observed Mental Status Exam Appearance: Clean from taking a shower today, groomed, dressed in clean clothing Eye contact: Avoidant Behavior: Somnolent, dismissive, avoidant Speech: Clear, poverty of speech Mood: Anxious, isolative Affect: Congruent with mood Thought process: Poverty of thought Thought Content: Unable to assess. Patient unwilling to engage. Cognition: Alert and able to make needs known Insight: Fair Judgment: Fair Interventions PRN's used: None Therapeutic interventions: 1:1 assessment, medication administration/education/monitoring, therapeutic conversation, active listening, limit setting, encouraged pt to participate in unit and activities, encouraged personal hygiene and to take a shower, behavior monitoring and intervention as needed; distraction, redirection, reality orientation, Q 15 minute safety checks. Restraints/seclusion/emergency medication: N/A Justification: Patient continues to require monitoring by staff, milieu, group, and individual counseling as needed. Patient was accepted to [facility]. Transport will be initiated for this week. No specified day at this time.
[2021-02-02] MEDS: NICOTINE POLACRILEX 2 MG LOZENGE BC PRN (17:49)
[2021-02-02 19:37] VITALS: BP 144/91
[2021-02-02] MEDS: clozapine 100mg tablet PO SCH (20:14)
[2021-02-02] MEDS: traZODone 50mg tablet PO PRN (20:15)
[2021-02-02] MEDS: LORazepam 1 MG tablet PO PRN (20:45)
--- NOTE | 2021-02-02 22:50 | NUR ---
Nursing Progress Note: Arnold Schroeder Legal hold: LPS, involuntary status for GD Report received from EMILIANO Polanco with use of SBAR Why are they here: In December of 2019 pt placed at [place], incompetent to stand trial. He had a felony charge of 2nd degree robbery. Pt was given the [facility] and [place] psychologist determined significant cognitive impairment and he was sent back to [facility]. Pt was released from [facility] to attend his conservatorship hearing. The decision was made to LPS conserve him and he was then brought to [facility]. Assessment What has happened this shift: Pt yelled Forte! when I walked on the floor tonight, then laughed and said "Thats my dad's last name." Pt is in a good mood, smiling and laughing. Sits w/peers but continues to isolate to self. Pt took HS meds and trazodone. Pt was encouraged to go to bed, but he continued to pace in the halls requesting prn ativan. Pt was given ativan but remained pacing in the halls for some time before going to bed. S/I, H/I: Denies A/VH: Denies, internally preoccupied Sleep: see sleep hours ADL's: Independent Group attendance: No group provided today Were meds taken: Yes Any med S/E: None noted or observed Mental Status Exam Appearance: Clean from taking a shower today, groomed, dressed in clean clothing Eye contact: good Behavior: Somnolent, persistent about getting ativan and trazodone each night Speech: Clear, poverty of speech Mood: Anxious, isolative Affect: Congruent with mood Thought process: Poverty of thought Thought Content: Perseverates on getting meds Cognition: Alert and able to make needs known Insight: Fair Judgment: Fair Interventions PRN's used: None Therapeutic interventions: 1:1 assessment, medication administration/education/monitoring, therapeutic conversation, active listening, limit setting, encouraged pt to participate in unit and activities, encouraged personal hygiene and to take a shower, behavior monitoring and intervention as needed; distraction, redirection, reality orientation, Q 15 minute safety checks. Restraints/seclusion/emergency medication: N/A Justification: Patient continues to require monitoring by staff, milieu, group, and individual counseling as needed. Patient was accepted to [facility]. Transport will be initiated for this week. No specified day at this time.
--- NOTE | 2021-02-03 00:31 | NUR ---
Nursing Progress Note: Arnold Schroeder Legal hold: LPS, involuntary status for GD Report received from EMILIANO Polanco with use of SBAR Why are they here: In December of 2019 pt placed at [facility], incompetent to stand trial. He had a felony charge of 2nd degree robbery. Pt was given the [facility] and [place] psychologist determined significant cognitive impairment and he was sent back to [facility] [place]. Pt was released from [facility] to attend his conservatorship hearing. The decision was made to LPS conserve him and he was then brought to [facility]. Assessment What has happened this shift: Pt yelled Forte! when I walked on the floor tonight, then laughed and said "Thats my dad's last name." Pt is in a good mood, smiling and laughing. Sits w/peers but continues to isolate to self. Pt took HS meds and trazodone. Pt was encouraged to go to bed, but he continued to pace in the halls requesting prn ativan. Pt was given ativan but remained pacing in the halls for some time before going to bed. S/I, H/I: Denies A/VH: Denies, internally preoccupied Sleep: see sleep hours ADL's: Independent Group attendance: No group provided today Were meds taken: Yes Any med S/E: None noted or observed Mental Status Exam Appearance: Clean from taking a shower today, groomed, dressed in clean clothing Eye contact: good Behavior: Somnolent, persistent about getting ativan and trazodone each night Speech: Clear, poverty of speech Mood: Anxious, isolative Affect: Congruent with mood Thought process: Poverty of thought Thought Content: Perseverates on getting meds Cognition: Alert and able to make needs known Insight: Fair Judgment: Fair Interventions PRN's used: None Therapeutic interventions: 1:1 assessment, medication administration/education/monitoring, therapeutic conversation, active listening, limit setting, encouraged pt to participate in unit and activities, encouraged personal hygiene and to take a shower, behavior monitoring and intervention as needed; distraction, redirection, reality orientation, Q 15 minute safety checks. Restraints/seclusion/emergency medication: N/A Justification: Patient continues to require monitoring by staff, milieu, group, and individual counseling as needed. Patient was accepted to [facility]. Transport will be initiated for this week. No specified day at this time. Addendum: 02/03/21 at 0036 by Maggy Crow RN Duplicate note entered twice.
--- NOTE | 2021-02-03 07:41 | NUR ---
Placement: Presenting Issues: SS received e-mail from [facility] indicating that [facility] wanted to transport pt sometime today. Pt's meds have not been delivered yet and pt currently does not have active Medi-Ranulfo therefore, the pharmacy may not be able to fill the meds for pt. Interventions: SS had t/c w/[facility] coordinator, per t/c she will relay info re pt's meds & MediCal issues to [facility]. SS also had t/c w/[facility], left vm re pt's MediCal issues and the the potential for a delay in his d/c as a result. Plan: SS will continue to monitor dcp. Yarely Smith LCSW Addendum: 02/03/21 at 0827 by Yarely Smith Amended: Links added.
[2021-02-03 08:00] VITALS: BP 117/81
[2021-02-03] MEDS: nicotine 7mg patch - 24hr TD SCH (09:08)
[2021-02-03] MEDS: divalproex sodium 500mg tablet.DR PO SCH ×2 (09:08→19:07)
[2021-02-03] MEDS: haloperidol 5mg tablet PO SCH ×2 (09:08→19:08)
[2021-02-03] MEDS: propranolol 10mg tablet PO SCH ×2 (09:08→19:08)
[2021-02-03] MEDS: clozapine 25mg tablet PO SCH ×2 (09:09→20:02)
--- NOTE | 2021-02-03 10:04 | NUR ---
DCP Presenting Issues: Clt's got some restrictions on his MediCal, this will delay d/c for pt. Interventions: SS met w/pt @ bedside and provided assistance for pt to contact MediCal and request to have his MediCal activated, pt was able to complete this task. SS had t/c with Uriel ARROYO to coordinate d/c meds fulfilment & delivery, per t/c once pt's MediCal is online, the pharmacy will fill it and deliver. Plan: SS will continue to monitor. Addendum: 02/03/21 at 1056 by Yarely Smith SS Amended: Links added.
[2021-02-03] MEDS: LORazepam 1 MG tablet PO PRN (13:23)
[2021-02-03] MEDS: NICOTINE POLACRILEX 2 MG LOZENGE BC PRN (13:23)
--- NOTE | 2021-02-03 14:33 | NUR ---
Nursing Progress Note: Arnold Schroeder Legal hold: LPS, involuntary status for GD Report received from EMILIANO Polanco with use of SBAR Why are they here: In December of 2019 pt placed at [facility] [place], incompetent to stand trial. He had a felony charge of 2nd degree robbery. Pt was given the [facility] and [place] psychologist determined significant cognitive impairment and he was sent back to [facility]. Pt was released from [facility] to attend his conservatorship hearing. The decision was made to LPS conserve him and he was then brought to [facility]. Assessment What has happened this shift: pt spent the day walking the halls listening to headphones, sometimes he will stand and stare at staff. Pt was pleasant and cooperative for all assessments and care and denied having any complaints. S/I, H/I: Denies A/VH: Denies, internally preoccupied Sleep: see sleep hours ADL's: Independent Group attendance: No group provided today Were meds taken: Yes Any med S/E: None noted or observed Mental Status Exam Appearance: groomed, dressed in clean clothing Eye contact: good Behavior: calm, cooperative Speech: Clear, poverty of speech Mood: Anxious, isolative Affect: Congruent with mood Thought process: Poverty of thought Thought Content: Perseverates on getting meds Cognition: Alert and able to make needs known Insight: Fair Judgment: Fair Interventions PRN's used: None Therapeutic interventions: 1:1 assessment, medication administration/education/monitoring, therapeutic conversation, active listening, limit setting, encouraged pt to participate in unit and activities, encouraged personal hygiene and to take a shower, behavior monitoring and intervention as needed; distraction, redirection, reality orientation, Q 15 minute safety checks. Restraints/seclusion/emergency medication: N/A Justification: Patient continues to require monitoring by staff, milieu, group, and individual counseling as needed. Patient was accepted to [facility]. Transport will be initiated for this week. No specified day at this time.
[2021-02-03 19:00] VITALS: BP 135/87
[2021-02-03] MEDS: clozapine 100mg tablet PO SCH (20:02)
--- NOTE | 2021-02-04 03:31 | NUR ---
Nursing Progress Note: Arnold Schroeder Legal hold: LPS, involuntary status for GD Report received from EMILIANO Polanco with use of SBAR Why are they here: In December of 2019 pt placed at [place], incompetent to stand trial. He had a felony charge of 2nd degree robbery. Pt was given the [facility]CA and [place] psychologist determined significant cognitive impairment and he was sent back to [place]. Pt was released from [facility] to attend his conservatorship hearing. The decision was made to LPS conserve him and he was then brought to [facility]. Assessment What has happened this shift: pt isolated to his room for most of the evening shift but was seen out a couple times. Pt only interacts with others when approached, otherwise will mostly keep to himself. Pt accepted hs meds without issue and went to bed. S/I, H/I: Denies A/VH: Denies, internally preoccupied Sleep: see sleep hours ADL's: Independent Group attendance: No group provided today Were meds taken: Yes Any med S/E: None noted or observed Mental Status Exam Appearance: groomed, dressed in clean clothing Eye contact: good Behavior: calm, cooperative Speech: Clear, poverty of speech Mood: Anxious, isolative Affect: Congruent with mood Thought process: Poverty of thought Thought Content: Perseverates on getting meds Cognition: Alert and able to make needs known Insight: Fair Judgment: Fair Interventions PRN's used: None Therapeutic interventions: 1:1 assessment, medication administration/education/monitoring, therapeutic conversation, active listening, limit setting, encouraged pt to participate in unit and activities, encouraged personal hygiene and to take a shower, behavior monitoring and intervention as needed; distraction, redirection, reality orientation, Q 15 minute safety checks. Restraints/seclusion/emergency medication: N/A Justification: Patient continues to require monitoring by staff, milieu, group, and individual counseling as needed. Patient was accepted to [facility]. Transport will be initiated for this week. No specified day at this time.
[2021-02-04 07:39] VITALS: BP 104/60
[2021-02-04] MEDS: nicotine 7mg patch - 24hr TD SCH (08:00)
[2021-02-04] MEDS: divalproex sodium 500mg tablet.DR PO SCH ×2 (08:16→19:30)
[2021-02-04] MEDS: propranolol 10mg tablet PO SCH ×2 (08:16→19:31)
[2021-02-04] MEDS: clozapine 25mg tablet PO SCH ×2 (08:16→20:00)
[2021-02-04] MEDS: haloperidol 5mg tablet PO SCH ×2 (08:16→19:30)
--- NOTE | 2021-02-04 11:44 | NUR ---
DISCHARGE 02/07/21 at 6:15 AM Arnold has been accepted at [facility]. His medications should get delivered this afternoon by Uriel Lazo. Arnold will get picked on Sunday02/07/21 at 6:15 AM by [facility] bus driver/monitor. Please provide him with snacks and water for the car ride. TIAGO Garay
[2021-02-04] MEDS: LORazepam 1 MG tablet PO PRN (12:58)
[2021-02-04] MEDS: NICOTINE POLACRILEX 2 MG LOZENGE BC PRN ×2 (13:40→15:57)
--- NOTE | 2021-02-04 17:44 | NUR ---
Nursing Progress Note: Arnold Schroeder Legal hold: LPS, involuntary status for GD Report received from Jocelynn Manriquez RN with use of SBAR Why are they here: In December of 2019 pt placed at [place], incompetent to stand trial. He had a felony charge of 2nd degree robbery. Pt was given the [facility] and [place] psychologist determined significant cognitive impairment and he was sent back to [facility]. Pt was released from [facility] to attend his conservatorship hearing. The decision was made to LPS conserve him and he was then brought to [facility]. Assessment What has happened this shift: Patient noted sleeping in bed at shift change. He joined in the community room for breakfast, noted eating quietly by himself. He retreated back to his room shortly after. 1:1 assessment completed, lungs CTA. He continues to be self-isolative, avoidant, closed-off, and antisocial with peers. Pt approached this senior technical writer after lunch with feelings of anxiety, PRN Ativan given with effectiveness. He endorsed to this senior technical writer that he is doing fine. He continues to display poverty of thought and poverty of speech. He was noted walking around the unit having a conversation with himself later in the day. When asked if he was experiencing AH, patient denied. He denies SI, HI, and VH. He is compliant with medications. He joined in the community room for snacks and meals the rest of the day and was noted walking around the unit, listening to music through headphones. S/I, H/I: Denies A/VH: Denies Sleep: Pt slept 8.5 hours last night per NOC shift. Slept intermittently throughout the day. ADL's: Independent Group attendance: No group provided today Were meds taken: Yes Any med S/E: None noted or observed Mental Status Exam Appearance: Disheveled, dressed appropriately for unit Eye contact: Avoidant Behavior: Somnolent, dismissive, avoidant Speech: Clear, poverty of speech Mood: Anxious, isolative Affect: Congruent with mood Thought process: Poverty of thought Thought Content: Unable to assess. Patient unwilling to engage. Cognition: Alert and able to make needs known Insight: Fair Judgment: Fair Interventions PRN's used: Ativan, Nicotine lozenge Therapeutic interventions: 1:1 assessment, medication administration/education/monitoring, therapeutic conversation, active listening, limit setting, encouraged pt to participate in unit and activities, encouraged personal hygiene, behavior monitoring and intervention as needed; distraction, redirection, reality orientation, Q 15 minute safety checks. Restraints/seclusion/emergency medication: N/A Justification: Patient continues to require monitoring by staff, milieu, group, and individual counseling as needed. Per SANJAY Kwong, no change in medication or treatment plan he is currently at baseline at this time. Patient is awaiting transportation to [facility].
[2021-02-04 19:00] VITALS: BP 139/84
[2021-02-04] MEDS: traZODone 50mg tablet PO PRN (19:31)
[2021-02-04] MEDS: clozapine 100mg tablet PO SCH (20:00)
--- NOTE | 2021-02-05 01:21 | NUR ---
Nursing Progress Note: Arnold Schroeder Legal hold: LPS, involuntary status for GD Report received from EMILIANO Polanco with use of SBAR Why are they here: In December of 2019 pt placed at [place], incompetent to stand trial. He had a felony charge of 2nd degree robbery. Pt was given the [facility] and [place] psychologist determined significant cognitive impairment and he was sent back to [facility]. Pt was released from [facility] to attend his conservatorship hearing. The decision was made to LPS conserve him and he was then brought to [facility]. Assessment What has happened this shift: Pt requested meds to be given early as he was wanting to go to bed. Pt spent the short time before bed walking the halls, occasionally interacting with other. Pt is friendly and cooperative and does not have any behavior issues. Pt appears bored and is looking forward to dcing on Sunday. All hs meds taken. S/I, H/I: Denies A/VH: Denies, internally preoccupied Sleep: see sleep hours ADL's: Independent Group attendance: No group provided today Were meds taken: Yes Any med S/E: None noted or observed Mental Status Exam Appearance: groomed, dressed in clean clothing Eye contact: good Behavior: calm, cooperative Speech: Clear, poverty of speech Mood: Anxious, isolative Affect: Congruent with mood Thought process: Poverty of thought Thought Content: Perseverates on getting meds Cognition: Alert and able to make needs known Insight: Fair Judgment: Fair Interventions PRN's used: None Therapeutic interventions: 1:1 assessment, medication administration/education/monitoring, therapeutic conversation, active listening, limit setting, encouraged pt to participate in unit and activities, encouraged personal hygiene and to take a shower, behavior monitoring and intervention as needed; distraction, redirection, reality orientation, Q 15 minute safety checks. Restraints/seclusion/emergency medication: N/A Justification: Patient continues to require monitoring by staff, milieu, group, and individual counseling as needed. Patient was accepted to [facility]. Transport will be initiated for this week. No specified day at this time.
[2021-02-05] MEDS: divalproex sodium 500mg tablet.DR PO SCH ×2 (08:00→20:13)
[2021-02-05] MEDS: haloperidol 5mg tablet PO SCH ×2 (08:00→20:16)
[2021-02-05] MEDS: nicotine 7mg patch - 24hr TD SCH (08:00)
[2021-02-05] MEDS: propranolol 10mg tablet PO SCH ×2 (08:00→20:11)
[2021-02-05] MEDS: clozapine 25mg tablet PO SCH ×2 (08:01→20:12)
[2021-02-05 08:04] VITALS: BP 105/60
--- NOTE | 2021-02-05 12:14 | NUR ---
Nursing Progress Note: Arnold Schroeder Legal hold: LPS, involuntary status for GD Report received from Jocelynn Manriquez RN with use of SBAR Why are they here: In December of 2019 pt placed at [place], incompetent to stand trial. He had a felony charge of 2nd degree robbery. Pt was given the [facility] and [place] psychologist determined significant cognitive impairment and he was sent back to [facility]. Pt was released from [facility] to attend his conservatorship hearing. The decision was made to LPS conserve him and he was then brought to [facility]. Assessment What has happened this shift: Pt was asleep at shift change and continued to sleep until late morning. Pt spent the day walking the halls, listening to headphones at times. Pt is cooperative but does not engage much with staff. Pt is looking forward to going to [facility]. S/I, H/I: Denies A/VH: Denies Sleep: Pt slept 8.5 hours last night per NOC shift. Slept intermittently throughout the day. ADL's: Independent Group attendance: No group provided today Were meds taken: Yes Any med S/E: None noted or observed Mental Status Exam Appearance: Disheveled, dressed appropriately for unit Eye contact: Avoidant Behavior: Somnolent, dismissive, avoidant Speech: Clear, poverty of speech Mood: Anxious, isolative Affect: Congruent with mood Thought process: Poverty of thought Thought Content: Unable to assess. Patient unwilling to engage. Cognition: Alert and able to make needs known Insight: Fair Judgment: Fair Interventions PRN's used: Ativan, Nicotine lozenge Therapeutic interventions: 1:1 assessment, medication administration/education/monitoring, therapeutic conversation, active listening, limit setting, encouraged pt to participate in unit and activities, encouraged personal hygiene, behavior monitoring and intervention as needed; distraction, redirection, reality orientation, Q 15 minute safety checks. Restraints/seclusion/emergency medication: N/A Justification: Patient continues to require monitoring by staff, milieu, group, and individual counseling as needed. Per SANJAY Kwong, no change in medication or treatment plan he is currently at baseline at this time. Patient is awaiting transportation to [facility].
[2021-02-05] MEDS ORDERED: nicotine 7mg patch - 24hr TD ONE (13:35)
[2021-02-05] MEDS: NICOTINE POLACRILEX 2 MG LOZENGE BC PRN ×3 (14:15→18:51)
[2021-02-05] MEDS: LORazepam 1 MG tablet PO PRN ×2 (16:38→20:13)
[2021-02-05 19:00] VITALS: BP 130/72
[2021-02-05] MEDS: clozapine 100mg tablet PO SCH (20:11)
[2021-02-05] MEDS: traZODone 50mg tablet PO PRN (20:13)
--- NOTE | 2021-02-06 00:43 | NUR ---
Nursing Progress Note: Arnold Schroeder Legal hold: LPS, involuntary status for GD Report received from EMILIANO Goff with use of SBAR Why are they here: In December of 2019 pt placed at [place], incompetent to stand trial. He had a felony charge of 2nd degree robbery. Pt was given the [facility] and [place] psychologist determined significant cognitive impairment and he was sent back to [place]. Pt was released from [facility] to attend his conservatorship hearing. The decision was made to LPS conserve him and he was then brought to [facility]. Assessment What has happened this shift: Pt was up on the unit at shift change walking the halls, listening to headphones at times. Pt was intrusive asking for medications and food. He needed redirection from digging thru the trash cans looking for food even right after snack. Pt was given Prn Ativan that was helpful. S/I, H/I: Denies A/VH: Denies Sleep: See sleep assessment. ADL's: Independent Group attendance: No group provided today Were meds taken: Yes Any med S/E: None noted or observed Mental Status Exam Appearance: Disheveled, dressed appropriately for unit Eye contact: Avoidant Behavior: Somnolent, dismissive, avoidant Speech: Clear, poverty of speech Mood: Anxious, isolative Affect: Congruent with mood Thought process: Poverty of thought Thought Content: Unable to assess. Patient unwilling to engage. Cognition: Alert and able to make needs known Insight: Fair Judgment: Fair Interventions PRN's used: Ativan, Nicotine lozenge,Trazodon Therapeutic interventions: 1:1 assessment, medication administration/education/monitoring, therapeutic conversation, active listening, limit setting, encouraged pt to participate in unit and activities, encouraged personal hygiene, behavior monitoring and intervention as needed; distraction, redirection, reality orientation, Q 15 minute safety checks. Restraints/seclusion/emergency medication: N/A Justification: Patient continues to require monitoring by staff, milieu, group, and individual counseling as needed. Per SANJAY Kwong, no change in medication or treatment plan he is currently at baseline at this time. Patient is awaiting transportation to [facility].
[2021-02-06 08:00] VITALS: BP 96/60
[2021-02-06] MEDS: clozapine 25mg tablet PO SCH ×2 (08:36→20:10)
[2021-02-06] MEDS: nicotine 7mg patch - 24hr TD SCH (08:37)
[2021-02-06] MEDS: propranolol 10mg tablet PO SCH ×2 (08:37→20:08)
[2021-02-06] MEDS: divalproex sodium 500mg tablet.DR PO SCH ×2 (08:37→20:08)
[2021-02-06] MEDS: haloperidol 5mg tablet PO SCH ×2 (08:38→20:08)
[2021-02-06] MEDS: NICOTINE POLACRILEX 2 MG LOZENGE BC PRN (13:44)
[2021-02-06] MEDS: LORazepam 1 MG tablet PO PRN ×2 (13:44→20:09)
--- NOTE | 2021-02-06 14:54 | NUR ---
Nursing Progress Note Legal hold: TCON, involuntary status for GD Report received from Jocelynn Manriquez RN with use of SBAR Why are they here: In December of 2019 pt placed at [place], incompetent to stand trial. He had a felony charge of 2nd degree robbery. Pt was given the [facility] and a [place] psychologist determined significant cognitive impairment and he was sent back to [facility]. Pt was released from [facility] to attend his conservatorship hearing. The decision was made to LPS conserve him and he was then brought to [facility]. Assessment What has happened this shift: Pt sleeps most of the day. He is up for meals and snacks. He occasionally will pace the halls wearing headsets. He states, "I leave Sunday at 6am." He appears happy with a smile and walks away. S/I, H/I: Denies A/VH: Denies Sleep: Slept most of the shift ADL's: Independent. Group attendance: N/A Were Meds taken: Yes Any med S/E: None noted or observed Mental Status Exam Appearance: Short dark haired male wearing polk pants and a dark shirt Eye contact: Fair Behavior: Calm in bed most of the shift Speech: Clear, WNL Mood: Depressed Affect: Congruent with mood Thought process: Circumstantial Thought Content: Leaving here Cognition: A/O x3 Insight: Fair Judgment: Fair Interventions PRN's used: None Therapeutic interventions: 1:1 assessment, medication administration/education/monitoring, therapeutic conversation, behavior monitoring, encouraged to participate in activities on the unit, and intervention as needed; Q 15 minute safety checks. Justification: Patient continues to require constant monitoring by staff, milieu, group, and individual counseling as needed. He is on a TCON for gravely disabled and requires medication adjustment and monitoring. He is unable to formulate a plan to safely meet his basic needs of food, clothing, and mcc due to the severity of his mental illness.
[2021-02-06] MEDS: traZODone 50mg tablet PO PRN (20:08)
[2021-02-06] MEDS: clozapine 100mg tablet PO SCH (20:10)
[2021-02-06 20:37] VITALS: BP 147/80
--- NOTE | 2021-02-07 00:39 | NUR ---
Nursing Progress Note Legal hold: TCON, involuntary status for GD Report received from EMILIANO Goff with use of SBAR Why are they here: In December of 2019 pt placed at [place], incompetent to stand trial. He had a felony charge of 2nd degree robbery. Pt was given the [facility] and a [place] psychologist determined significant cognitive impairment and he was sent back to [facility]. Pt was released from [facility] to attend his conservatorship hearing. The decision was made to LPS conserve him and he was then brought to [facility]. Assessment What has happened this shift: Pt was up at shift change intrusive asking for medications and food. Pt needed to be redirected several times during the shift. S/I, H/I: Denies A/VH: Denies Sleep: See sleep assessment ADL's: Independent. Group attendance: N/A Were Meds taken: Yes Any med S/E: None noted or observed Mental Status Exam Appearance: Short dark haired male wearing polk pants and a dark shirt Eye contact: Fair Behavior: Calm in bed most of the shift Speech: Clear, WNL Mood: Depressed Affect: Congruent with mood Thought process: Circumstantial Thought Content: Leaving here Cognition: A/O x3 Insight: Fair Judgment: Fair Interventions PRN's used: None Therapeutic interventions: 1:1 assessment, medication administration/education/monitoring, therapeutic conversation, behavior monitoring, encouraged to participate in activities on the unit, and intervention as needed; Q 15 minute safety checks. Justification: Patient continues to require constant monitoring by staff, milieu, group, and individual counseling as needed. He is on a TCON for gravely disabled and requires medication adjustment and monitoring. He is unable to formulate a plan to safely meet his basic needs of food, clothing, and skilled nursing due to the severity of his mental illness.
--- NOTE | 2021-02-07 06:00 | NUR ---
Pt discharged at 0600 walked down by staff. Pt left via [facility] driver wheelchair with all his belongings.
[2021-02-07] MEDS: haloperidol 5mg tablet PO SCH (06:14)
[2021-02-07] MEDS: divalproex sodium 500mg tablet.DR PO SCH (06:14)
[2021-02-07] MEDS: clozapine 25mg tablet PO SCH (06:14)
[2021-02-07] MEDS: propranolol 10mg tablet PO SCH (06:15)
== END 2021-02-07 06:15 | DRG 750 ==
LOC: ADULT MH 15:12
PROVIDERS: ADMIT Psychiatry & Neurology Psychiatry; ATTEND Psychiatry & Neurology Psychiatry
DX: F25.9 Schizoaffective disorder, unspecified (principal); F43.10 Post-traumatic stress disorder, unspecified; F91.3 Oppositional defiant disorder; F90.9 Attention-deficit hyperactivity disorder, unspecified type; Z82.3 Family history of stroke; Z82.5 Family history of asthma and other chronic lower respiratory diseases; Z83.3 Family history of diabetes mellitus; Z56.0 Unemployment, unspecified; Z79.899 Other long term (current) drug therapy
CPT/HCPCS: 36415; 80061; 80164; 83036; 85025; 87081; Q0177